=== PATIENT | male | born 1935 | race Caucasian/White ===

== ENCOUNTER 2018-07-06 13:25 | Inpatient (IN) | payer MEDICARE ==
[2018-07-06] MEDS ORDERED: MORPHINE SULFATE 4 MG/ML SYRINGE IV STA (14:07)
[2018-07-06] MEDS ORDERED: SODIUM CHLORIDE 0.9% 1,000 ML IV STA (14:09)
--- NOTE | 2018-07-06 14:17 | ED ---
General Adult HPI - General Chief complaint: Fall Stated complaint: Fall/Hip Pain Time Seen by Provider: 07/06/18 13:52 Source: patient, family, EMS, RN notes reviewed Mode of arrival: EMS Limitations: no limitations - History of Present Illness Initial comments: Patient is a pleasant 83-year-old male presenting to the emergency department following a fall. Incident occurred last night. Patient tripped on a curb and hurt his right hip. Patient had difficulty bearing weight. Patient was able to get himself inside. Patient has continued discomfort and is unable to ambulate. Patient also has some discomfort right anterior ribs and abdomen. Patient does have chronic back pain however no new back pain. Patient states she did strike his head however denies any loss of consciousness. No confusion or new area of weakness. No neck pain. Patient did receive fentanyl by EMS however still complains of discomfort. - Related Data Home Medications Medication Instructions Recorded Confirmed Citalopram Hydrobromide 40 mg PO DAILY 09/24/13 07/06/18 [Citalopram HBr] HYDROcodone/APAP 10-325MG [[place] 1 tab PO Q4H 09/24/13 07/06/18 10] Omeprazole [PriLOSEC] 20 mg PO AC-BRKFST 09/24/13 07/06/18 Simvastatin [Zocor] 80 mg PO HS 09/24/13 07/06/18 amLODIPine [Norvasc] 5 mg PO DAILY 09/24/13 07/06/18 Metoprolol Tartrate [Lopressor] 50 mg PO BID 07/06/18 07/06/18 Tamsulosin HCl [Flomax] 0.4 mg PO DAILY 07/06/18 07/06/18 Allergies Allergy/AdvReac Type Severity Reaction Status Date / Time shellfish derived AdvReac Dyspnea Verified 07/06/18 14:03 Review of Systems ROS Statement: Those systems with pertinent positive or pertinent negative responses have been documented in the HPI. ROS Other: All systems not noted in ROS Statement are negative. Constitutional: Denies: fever Eyes: Denies: eye pain ENT: Denies: ear pain Respiratory: Denies: cough Cardiovascular: Reports: as per HPI Endocrine: Denies: fatigue Gastrointestinal: Reports: abdominal pain Genitourinary: Denies: dysuria Musculoskeletal: Reports: as per HPI Skin: Denies: rash Neurological: Denies: headache, weakness, confusion Past Medical History Past Medical History: GERD/Reflux, Hypertension, Musculoskeletal Disorder Additional Past Medical History / Comment(s): chronic back pain, high cholesterol, History of Any Multi-Drug Resistant Organisms: None Reported Past Surgical History: Adenoidectomy, Cholecystectomy, Tonsillectomy Past Psychological History: Depression Smoking Status: Former smoker Past Alcohol Use History: None Reported Past Drug Use History: None Reported General Exam Limitations: no limitations General appearance: alert, in no apparent distress Head exam: Present: atraumatic, normocephalic Eye exam: Present: normal appearance, PERRL, EOMI ENT exam: Present: normal oropharynx Neck exam: Present: normal inspection. Absent: tenderness Respiratory exam: Present: normal lung sounds bilaterally, chest wall tenderness (Right lower anterior chest) Cardiovascular Exam: Present: regular rate, normal rhythm Expanded Peripheral pulses: 2+: Radial (R), Radial (L), Dorsalis Pedis (R), Dorsalis Pedis (L) GI/Abdominal exam: Present: soft, tenderness (Mild diffuse tenderness), normal bowel sounds. Absent: distended, guarding, rebound, rigid, pulsatile mass Extremities exam: Present: tenderness (Right lateral hip). Absent: calf tenderness Back exam: Present: normal inspection. Absent: tenderness Neurological exam: Present: alert, CN II-XII intact. Absent: motor sensory deficit Expanded Neurological exam: Present: protecting the airway Cranial nerves: EOM's Intact: Normal Sensory exam: Upper Extremity Light Touch: Normal, Lower Extremity Light Touch: Normal Motor strength exam: RUE: 5, LUE: 5, RLE: 5 (Exam somewhat limited by pain), LLE : 5 Eye Response: (4) open spontaneously Motor Response: (6) obeys commands Verbal Response: (5) oriented Psychiatric exam: Present: normal affect, normal mood Skin exam: Present: normal color Course Vital Signs 07/06/18 13:33 Temperature 97.8 F Pulse Rate 76 Respiratory 22 Rate Blood Pressure 137/57 O2 Sat by Pulse 99 Oximetry - Reevaluation(s) Reevaluation #1: 07/06/18 17:03 Case was earlier discussed with Dr. Wilks who states patient does not need to be admitted surgically has injuries could be managed as an outpatient. He will consult on patient. he does request consult with Dr. Lackey as well as anesthesiology. Secondary to rhabdomyolysis and changes with renal function patient will be admitted. Case was discussed with Dr. Sam, covering for Dr. Therese mckeon, who will admit. Patient and family updated on results and plan including concern for lung mass. EKG Findings - EKG Comments: EKG Findings:: Sinus rhythm 69. DE 222. QRS 112. QT 458. QTC 490 axis. Right bundle branch block. No acute ST change. Medical Decision Making - Lab Data Result diagrams: 07/06/18 14:27 07/06/18 14:27 Lab Results 07/06/18 07/06/18 07/06/18 Range/Units 14:27 14:27 14:27 WBC 13.4 H (3.8-10.6) k/uL RBC 3.51 L (4.30-5.90) m/uL Hgb 10.7 L (13.0-17.5) gm/dL Hct 32.4 L (39.0-53.0) % MCV 92.3 (80.0-100.0) fL MCH 30.5 (25.0-35.0) pg MCHC 33.0 (31.0-37.0) g/dL RDW 13.7 (11.5-15.5) % Plt Count 139 L (150-450) k/uL Neutrophils % 88 % Lymphocytes % 5 % Monocytes % 6 % Eosinophils % 1 % Basophils % 0 % Neutrophils # 11.7 H (1.3-7.7) k/uL Lymphocytes # 0.6 L (1.0-4.8) k/uL Monocytes # 0.8 (0-1.0) k/uL Eosinophils # 0.2 (0-0.7) k/uL Basophils # 0.0 (0-0.2) k/uL PT (9.0-12.0) sec INR (<1.2) APTT (22.0-30.0) sec Sodium 139 (137-145) mmol/L Potassium 4.7 (3.5-5.1) mmol/L Chloride 106 (98-107) mmol/L Carbon Dioxide 22 (22-30) mmol/L Anion Gap 11 mmol/L BUN 28 H (9-20) mg/dL Creatinine 2.00 H (0.66-1.25) mg/dL Est GFR (CKD-EPI)AfAm 35 (>60 ml/min/1.73 sqM) Est GFR (CKD-EPI)NonAf 30 (>60 ml/min/1.73 sqM) Glucose 114 H (74-99) mg/dL Calcium 9.5 (8.4-10.2) mg/dL Total Bilirubin 1.7 H (0.2-1.3) mg/dL AST 80 H (17-59) U/L ALT 20 L (21-72) U/L Alkaline Phosphatase 60 (38-126) U/L Total Creatine Kinase 2401 H* (55-170) U/L CK-MB (CK-2) 13.1 H (0.0-2.4) ng/mL CK-MB (CK-2) Rel Index Troponin I 0.218 H* (0.000-0.034) ng/mL Total Protein 7.3 (6.3-8.2) g/dL Albumin 4.2 (3.5-5.0) g/dL Serum Alcohol <10 mg/dL Blood Type Blood Type Confirm Blood Type Recheck Antibody Screen Spec Expiration Date 07/06/18 07/06/18 07/06/18 Range/Units 14:27 14:27 14:29 WBC (3.8-10.6) k/uL RBC (4.30-5.90) m/uL Hgb (13.0-17.5) gm/dL Hct (39.0-53.0) % MCV (80.0-100.0) fL MCH (25.0-35.0) pg MCHC (31.0-37.0) g/dL RDW (11.5-15.5) % Plt Count (150-450) k/uL Neutrophils % % Lymphocytes % % Monocytes % % Eosinophils % % Basophils % % Neutrophils # (1.3-7.7) k/uL Lymphocytes # (1.0-4.8) k/uL Monocytes # (0-1.0) k/uL Eosinophils # (0-0.7) k/uL Basophils # (0-0.2) k/uL PT 11.0 (9.0-12.0) sec INR 1.0 (<1.2) APTT 20.5 L (22.0-30.0) sec Sodium (137-145) mmol/L Potassium (3.5-5.1) mmol/L Chloride (98-107) mmol/L Carbon Dioxide (22-30) mmol/L Anion Gap mmol/L BUN (9-20) mg/dL Creatinine (0.66-1.25) mg/dL Est GFR (CKD-EPI)AfAm (>60 ml/min/1.73 sqM) Est GFR (CKD-EPI)NonAf (>60 ml/min/1.73 sqM) Glucose (74-99) mg/dL Calcium (8.4-10.2) mg/dL Total Bilirubin (0.2-1.3) mg/dL AST (17-59) U/L ALT (21-72) U/L Alkaline Phosphatase (38-126) U/L Total Creatine Kinase (55-170) U/L CK-MB (CK-2) (0.0-2.4) ng/mL CK-MB (CK-2) Rel Index Troponin I (0.000-0.034) ng/mL Total Protein (6.3-8.2) g/dL Albumin (3.5-5.0) g/dL Serum Alcohol mg/dL Blood Type O Positive Blood Type Confirm O Positive Blood Type Recheck CABO Indicated Antibody Screen NEGATIVE Spec Expiration Date 07/09/2018 - 9736 - Radiology Data Radiology results: report reviewed (Computed tomography scan of the brain and cervical spine reveals no acute abnormality. Spondylitic changes. Computed tomography scan of the chest abdomen pelvis does show rib fractures on the right , ribs 4 through 7. Right sided superior and inferior pubic rami fracture. Nondisplaced sacral fracture. Suspicious 5.2 cm right lower lobe mass. Associated subcarinal lymphadenopathy.), image reviewed (Pelvic x-ray shows pubic rami fracture. Right femur x-ray also shows pubic rami fracture, no hip fracture.) Disposition Clinical Impression: Lung mass, Rhabdomyolysis, Rib fractures, Pubic ramus fracture Disposition: ADMITTED IP TO THIS [facility] Is patient prescribed a controlled substance at d/c from ED?: No Referrals: Conrad Corey DO [Primary Care Provider] - 1-2 days Decision Time: 16:35
[2018-07-06 15:17] LABS: Basophils % (A) 0 %; Eosinophils # (A) 0.2 k/uL (0-0.7); Eosinophils % (A) 1 %; HCT 32.4 % (39.0-53.0); HGB 10.7 gm/dL (13.0-17.5); Lymphocytes # (A) 0.6 k/uL (1.0-4.8); Lymphocytes % (A) 5 %; MCH 30.5 pg (25.0-35.0); MCV 92.3 fL (80.0-100.0); Mean Platelet Volume 7.3; Monocytes # (A) 0.8 k/uL (0-1.0); Monocytes % (A) 6 %; Neutrophils # (A) 11.7 k/uL (1.3-7.7); Neutrophils % (A) 88 %; Platelet Count 139 k/uL (150-450); RBC 3.51 m/uL (4.30-5.90); RDW 13.7 % (11.5-15.5); WBC 13.4 k/uL (3.8-10.6)
[2018-07-06 15:24] LABS: ALT 20 U/L (21-72); AST 80 U/L (17-59); Albumin 4.2 g/dL (3.5-5.0); Alcohol <10 mg/dL; Alkaline Phosphatase 60 U/L (38-126); Anion Gap 11 mmol/L; Blood Urea Nitrogen 28 mg/dL (9-20); Calcium 9.5 mg/dL (8.4-10.2); Carbon Dioxide 22 mmol/L (22-30); Chloride 106 mmol/L (98-107); Glucose 114 mg/dL (74-99); Potassium 4.7 mmol/L (3.5-5.1); Sodium 139 mmol/L (137-145); Total Bilirubin 1.7 mg/dL (0.2-1.3); Total Protein 7.3 g/dL (6.3-8.2)
[2018-07-06 15:41] LABS: Creatine Kinase MB 13.1 ng/mL (0.0-2.4)
[2018-07-06 15:43] LABS: Partial Thromboplastin Time 20.5 sec (22.0-30.0)
[2018-07-06 15:56] LABS: Troponin I 0.218 ng/mL (0.000-0.034)
--- NOTE | 2018-07-06 16:04 | CT ---
EXAMINATION TYPE: CT brain sara wo con DATE OF EXAM: 07/06/2018 COMPARISON: Brain 09/24/2013 HISTORY: 83-year-old male Fall, c/o hip pain CT DLP: 1290.1 mGycm Automated exposure control for dose reduction was used. Technique: Examination of the head was done in axial plane without intravenous contrast. Coronal and sagittal reconstructions performed. CT of the cervical spine was obtained in axial plane without intravenous injection of contrast mater ial. Coronal and sagittal reformatted images were obtained from the axial views for evaluation of f ractures, spinal alignment and canal. FINDINGS: Head: There is no evidence of acute intracranial hemorrhage, acute ischemic changes, mass, mass-effect, or extra-axial fluid collection. There is no effacement of cerebral sulci or basal subarachnoid cister ns. There is no midline shift. Camacho-white matter distinction is preserved. Moderate generalized atrophy especially central cerebral volume loss with secondary mild ventriculome lelie, stable from 2013. Mild white matter hypodensities suggesting changes of chronic small vessel is chemic disease. Empty sella incidentally noted. Rightward nasal septal deviation. Moderate mucosal thickening ethmoid air cells. Opacification of the right mastoid air cells and right epitympanum and prominent cerumen in the right external auditory c anal. No calvarial fractures. Cervical spine: No craniocervical junction, predental space widening, or prevertebral soft tissue swelling. Advanced degenerative changes at the C1 dens articulate. Severe dissection plate degenerative change at C4-C7 levels with loss of disc height, endplate sclero sis, and discussed by complex formation. Hypertrophic facet and uncovertebral joint arthropathy is present. Grade 1 anterolisthesis at C3-C4 and grade 1 retrolisthesis at C4-C5 and C5-C6. Additional grade 2 an terolisthesis at C7-T1. No acute fracture is identified. Changes result in moderate narrowing of the spinal canal at C6-C7. Moderate right-sided neural foraminal stenosis at C3-C4, on the left at C4-C5, moderate to severe on both sides at C5-C6 and moderate on the left at C6-C7. Sagittal and coronal reformatted images confirm above findings. COMBINED IMPRESSION: 1. Similar moderate atrophy and mild changes of chronic small vessel ischemic disease. No acute intra cranial abnormality seen. 2. No acute fracture of the cervical spine. Moderate to advanced spondylotic changes with multilevel grade 1 spondylolisthesis as outlined above. 3. Correlate for right-sided otomastoiditis.
--- NOTE | 2018-07-06 16:06 | XR ---
EXAMINATION TYPE: XR Hip RT and AP Pelvis DATE OF EXAM: 07/06/2018 COMPARISON: CT chest abdomen pelvis same date HISTORY: Trauma and pain TECHNIQUE: A single AP view of the pelvis is obtained. Two views of the right hip are obtained. FINDINGS: There is inferior pubic ramus fracture, superior pubis ramus fracture is noted better on CT at its lateral aspect. There is impaction. Superior pubis ramus fracture shows a buckle fracture at the medial aspect. No dislocation. Degenerative disc changes are noted in the visualized spine. IMPRESSION: Right-sided pubic ramus fractures.
--- NOTE | 2018-07-06 16:25 | CT ---
EXAMINATION TYPE: CT ChestAbdPelvis wo con DATE OF EXAM: 07/06/2018 COMPARISON: None HISTORY: 83-year-old male Fall, c/o hip pain TECHNIQUE: Contiguous axial scanning of the chest, abdomen, and pelvis without IV contrast. Coronal a nd sagittal reconstructions performed. CT DLP: 722.1 mGycm Automated exposure control for dose reduction was used. FINDINGS: Chest: Heart upper limits of normal in size without pericardial effusion. Coronary vessel calcifications are present. Large caliber to the main right and the pulmonary arteries measuring up to 2.8 cm suggestin g underlying pulmonary arterial hypertension. Ectatic ascending aorta at 3.8 cm. Bovine configuration to the aortic arch and additional variant dir ect takeoff of the left vertebral artery directly from the aortic arch. Lack of IV contrast limits assessment of the vascular structures. Enlarged 2.2 cm subcarinal lymph node. There is moderate centrilobular emphysema and areas of interstitial scarring demonstrated. No consoli dation, pneumothorax, or pleural effusion. However, there is a suspicious right lower lobe mass measu ring 5.2 cm. ABDOMEN: Small hiatal hernia. Lack of IV contrast limits assessment of the solid abdominal viscera, lymph nodes, and vascular struc tures. 9 mm hypodensity peripheral inferior right liver lobe inadequately characterized but likely represent ing a cyst. While this measures 1.2 cm likely combination of patient's age and postcholecystectomy st atus. Noncontrast appearance of the adrenal glands, spleen, and atrophic pancreas show no gross abnormality . Punctate nonobstructive 2 mm right renal calculus. Lobulated hypodense lesion in the left kidney rj ures 4.7 cm, suspected cyst. This should be confirmed with renal ultrasound. 5 mm nonobstructive left lower pole renal calculus. Moderate atherosclerotic calcifications within the infrarenal abdominal aorta and iliac arteries. Fus iform mild infrarenal abdominal aortic aneurysm at 3.0 cm. Retroaortic left renal vein. No dilated small bowel, free fluid, or free air. No mesenteric or retroperitoneal lymphadenopathy. Normal appendix. Gassy colon. Transverse colon is mildly dilated at 7.1 cm, probably transient. Mild diverticulosis of the sigmoid colon. Redundant sigmoid colon. No pericolonic inflammatory change . Pelvis: Bladder urine distended. Prominent stool distending the rectum up to 6.7 cm. No surrounding inflammat ion. No abnormal fluid collection in the pelvis or pelvic lymphadenopathy. Bones: There are segmental and angulated fractures of the right inferior pubic ramus, nondisplaced fracture right superior pubic ramus laterally along the medial margin of the acetabulum. Degenerative changes of both hips. No displaced hip fracture seen. Bilateral L5 pars defects with grade 2 anterolisthesis at L5-S1. Nondisplaced zone 1 right-sided sacr al alar fracture. SI joints appear intact. Very subtle lucencies or cortical irregularities involving the right lateral fourth, fifth, sixth, an d seventh ribs. IMPRESSION: 1. SEGMENTAL ANGULATED FRACTURES OF THE RIGHT INFERIOR PUBIC RAMUS. NONDISPLACED FRACTURE OF THE LATE RAL ASPECT OF THE RIGHT SUPERIOR PUBIC RAMUS AND ADDITIONAL NONDISPLACED ZONE 1 RIGHT-SIDED SACRAL AL AR FRACTURE. 2. SUBTLE NONDISPLACED FRACTURES OF THE RIGHT LATERAL FOURTH THROUGH SEVENTH RIBS. 3. LACK OF IV CONTRAST LIMITS ASSESSMENT OF THE SOLID ABDOMINAL VISCERA, LYMPH NODES, AND VASCULAR ST RUCTURES. 4. FINDINGS HIGHLY SUSPICIOUS FOR A 5.2 CM RIGHT LOWER LOBE LUNG CANCER WITH METASTATIC SUBCARINAL LY MPHADENOPATHY. FURTHER CLINICAL WORKUP AND MANAGEMENT RECOMMENDED. 5. LOBULATED 4.7 CM LESION OF THE LEFT KIDNEY SUSPECTED TO REPRESENT A CYST. THIS SHOULD BE CONFIRMED WITH RENAL ULTRASOUND. 6. 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 7. COPD WITH MODERATE EMPHYSEMA, PULMONARY ARTERIAL HYPERTENSION, CAD, SMALL HIATAL HERNIA, NONOBSTRU CTIVE RENAL CALCULI MEASURING UP TO 5 MM, 3 cm AAA, AND SIGMOID DIVERTICULOSIS.
[2018-07-06] MEDS ORDERED: NALOXONE 0.4 MG/ML 1 ML VIAL IV PRN (17:07)
[2018-07-06] MEDS ORDERED: HYDROcodone/APAP 5-325MG 1 EACH TAB PO PRN (17:07)
[2018-07-06 17:21] LABS: Amorphous Sediment,Urine Rare /hpf; Hyaline Casts,Urine 7 /lpf (0-2); Mucus,Urine Rare /hpf; WBC,Urine 17 /hpf (0-5)
[2018-07-06 17:25] LABS: Amphetamine Screen,Urine Not Detected (NotDetected); Barbiturate Screen,Urine Not Detected (NotDetected); Benzodiazepines Screen,Urine Not Detected (NotDetected); Cocaine Screen,Urine Not Detected (NotDetected); Methadone Screen, Urine Not Detected (NotDetected); Opiate Screen,Urine Detected (NotDetected); Oxycodone Screen, Urine Not Detected (NotDetected); Phencyclidine Screen,Urine Not Detected (NotDetected); Tricyclic Antidepressant,Urine Not Detected (NotDetected); Urn Cannabinoid Scrn Not Detected (NotDetected)
[2018-07-06 17:47] LABS: Appearance,Urine Cloudy (Clear); Bilirubin,Urine Negative (Negative); Blood,Urine Moderate (Negative); Color,Urine Yellow; Glucose,Urine (UA) Negative (Negative); Ketones,Urine 1+ (Negative); Leukocyte Esterase,Urine Trace (Negative); Nitrite,Urine Negative (Negative); Protein,Urine 2+ (Negative); RBC,Urine 1 /hpf (0-5); Specific Gravity,Urine 1.021 (1.001-1.035)
[2018-07-06] MEDS ORDERED: MORPHINE SULFATE 4 MG/ML SYRINGE IVP STA (18:24)
[2018-07-06] MEDS: SODIUM CHLORIDE 0.9% 1,000 ML IV SCH ×2 (18:31→23:32)
[2018-07-06] MEDS: HYDROcodone/APAP 5-325MG 1 EACH TAB PO PRN (20:46)
[2018-07-06 21:24] LABS: Creatine Kinase MB 22.1 ng/mL (0.0-2.4)
[2018-07-06 21:30] LABS: Troponin I 1.11 ng/mL (0.000-0.034)
[2018-07-06] MEDS: MORPHINE SULFATE 2 MG/ML SYRINGE IVP PRN (23:31)
[2018-07-07] MEDS ORDERED: HEPARIN SODIUM,PORCINE 5,000 UNIT/ML 1 ML VIAL SQ SCH (00:15)
[2018-07-07 03:58] LABS: Albumin 3.1 g/dL (3.5-5.0); Calcium 8.2 mg/dL (8.4-10.2); Potassium 4.3 mmol/L (3.5-5.1); Total Bilirubin 0.9 mg/dL (0.2-1.3); Total Protein 5.7 g/dL (6.3-8.2)
[2018-07-07 04:17] LABS: Troponin I 1.66 ng/mL (0.000-0.034)
[2018-07-07] MEDS: MORPHINE SULFATE 2 MG/ML SYRINGE IVP PRN ×4 (04:23→22:46)
[2018-07-07] MEDS: SODIUM CHLORIDE 0.9% 1,000 ML IV SCH ×2 (05:23→09:07)
[2018-07-07] MEDS: PANTOPRAZOLE 40 MG TABLET PO SCH (06:09)
[2018-07-07] MEDS: ONDANSETRON 4 MG/2 ML VIAL IVP PRN ×2 (06:29→19:17)
--- NOTE | 2018-07-07 07:34 | HP ---
HISTORY AND PHYSICAL CHIEF COMPLAINT: Hip pain and right-sided chest pain. HISTORY OF PRESENT ILLNESS: This is a 83-year-old gentleman with a past medical history of multiple medical problems including hypertension, hyperlipidemia, history of GERD, history of DJD , history of prostate disorder, history of from cholecystectomy, history of depression, being followed by Dr. Corey in the outpatient setting, apparently tripped and fell over the curb last night. The patient is complaining of hip pain and as well as right lower chest pain. The patient unable to get himself up and patient apparently was lying bed himself and because of difficulty, the patient taken to [facility] and admitted for further evaluation and treatment. The patient had features of rhabdomyolysis with creatine kinase elevated up to 2401. Troponin is also found to elevated at 0.218. There is no history of chest pain, palpitation, headache, loss of consciousness. AST, ALT were slightly elevated and urine WBC is also elevated and WBC is 13.4. The radiological evaluation, the hip x-ray showed right-sided pubic ramus fractures, both inferior and superior which was conformed in the CT scan of the chest, abdomen and pelvis which showed segmental angulated fracture of the right inferior pubic ramus and a nondisplaced fracture of the lateral aspect of the right superior pubic ramus and as well as nondisplaced fractures of the right lateral fourth through seventh ribs and 5.2 cm right lower lobe lung cancer, with possible metastasis and a lobulated 4.7 cm lesion on the left kidney which is possibly a cyst and some DJD and COPD also. There is no history of any fever, rigors. No history of headache, loss of consciousness, seizures at this time. PAST MEDICAL HISTORY: History of GERD, hypertension, hyperlipidemia, history of DJD, history of prostate disorder, chronic back pain, gout, history of depression. MEDICATIONS: Prior to admission home medications are: 1. Norvasc 5 mg p.o. daily. 2. Flomax 0.4. 3. Zocor 80 mg q.h.s. 4. Prilosec 20 mg at breakfast. 5. Lopressor 50 mg b.i.d. 6. [place] 10 mg q.h.s. 7. Celexa 40 mg daily. ALLERGIES: PENICILLIN, SHELLFISH. FAMILY HISTORY: History of breast cancer in the family. SOCIAL HISTORY: Previous history of smoking. Occasional alcohol intake. REVIEW OF SYSTEMS: ENT: Diminished hearing, diminished vision. CARDIOVASCULAR SYSTEM: No angina or palpitations, no cough or hemoptysis. GI: No nausea. : No dysuria. NERVOUS SYSTEM: No numbness, weakness. ALLERGY/IMMUNOLOGY: No asthma. MUSCULOSKELETAL: As mentioned earlier. HEMATOLOGY/ONCOLOGY: No history of anemia. ENDOCRINE: No history of diabetes or hypothyroidism. CONSTITUTIONAL: As mentioned earlier. DERMATOLOGY: Negative. RHEUMATOLOGY: Negative. PSYCHIATRY: As mentioned earlier. PHYSICAL EXAMINATION: Alert and oriented x3. Pulse is 75, blood pressure 122/53, respiration 18, temperature 98 degrees, pulse ox 98% on room air skin: HEENT: Conjunctivae normal, oral mucosa moist. NECK: No jugular venous distention, no carotid enlargement, no lymph node enlargement. CARDIOVASCULAR SYSTEM: S1, S2, muffled. RESPIRATION: Breath sounds diminished at the bases, a few scattered rhonchi, no crackles. ABDOMEN: Soft, some minimal discomfort felt on the right lower part of the chest and right upper part of the abdomen on palpation. Otherwise, movements of the hip painful. LEGS: No edema. No swelling. NERVOUS SYSTEM: Higher functions as mentioned earlier. Moves all 4 limbs. No focal motor deficits. LYMPHATICS: No lymph node enlargement in the neck or axillae. SKIN: No ulcer, rash, bleeding. LABS: At this time shows the x-ray reviewed and otherwise other labs reviewed and WBC 13.2, hemoglobin 10.7, platelets 139. Creatinine is 2, glucose 114, creatinine kinase 20,2401. ASSESSMENT: 1. Fall and acute pelvis fracture, right superior inferior pubic ramus fracture with severe pain and gait dysfunction. 2. Acute rhabdomyolysis. 3. Elevated troponin up to 1.110, rule out acute myocardial infarction. 4. History of fever, elevated WBC, possible acute urinary tract infection. 5. Increased creatinine with possible acute on chronic renal failure with chronic kidney disease stage III, baseline. 6. Anemia, normocytic anemia of chronic disease. 7. Increased AST. 8. Acute urinary tract infection. 9. Gastroesophageal reflux disease. 10.Hypertension. 11.Hyperlipidemia. 12.Degenerative joint disease. 13.History of prostate disorder. 14.History of gout. 15.History of asbestos exposure. 16.Possible right lung cancer. 17.History of adenoidectomy. 18.Major depression. 19.History of nicotine dependence. RECOMMENDATIONS: In this 83-year-old gentleman who presented with multiple complex medical issues , will monitor the patient closely, continue with the current management and symptomatic treatment. Continue with IV fluids, monitor, symptomatic treatment with pain medication, also will be given DVT prophylaxis. Monitor creatinine closely. Cardiology has been consulted for elevated troponin. I would also recommend PT , OT evaluation and orthopedic evaluation as well. The social services technician also will be consulted and possible ECF rehab also will be considered. 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 Overall prognosis guarded because of multiple complex medical issues. The patient remains FULL CODE at this time further. Further recommendations to follow. Chest reviewed and a copy of this will be forwarded to Dr. Corey who is the primary physician. DARIL / ADELINAN: [id number] / [id number]
[2018-07-07] MEDS: HYDROcodone/APAP 5-325MG 1 EACH TAB PO PRN (07:44)
[2018-07-07] MEDS ORDERED: HYDROcodone/APAP 7.5-325MG 1 EACH TAB PO PRN (07:58)
[2018-07-07] MEDS ORDERED: amLODIPine 5 MG TAB PO SCH (09:00)
[2018-07-07] MEDS ORDERED: METOPROLOL TARTRATE 50 MG TAB PO SCH (09:00)
[2018-07-07] MEDS: DOCUSATE 100 MG CAP PO SCH ×2 (09:09→20:52)
[2018-07-07] MEDS: TAMSULOSIN 0.4 MG CAP.ER.24H PO SCH (09:09)
[2018-07-07] MEDS: CITALOPRAM HYDROBROMIDE 20 MG TAB PO SCH (09:09)
[2018-07-07] MEDS: LIDOCAINE 5% PATCH TOPICAL SCH (09:10)
--- NOTE | 2018-07-07 09:41 | P.GSCN ---
History of Present Illness Consult date: 07/07/18 Reason for Consult: fall Requesting physician: Benson Ortiz History of present illness: CHIEF COMPLAINT: Fall HISTORY OF PRESENT ILLNESS: 83-year-old male who presented to the emergency department after sustaining a fall. Patient was walking and tripped and landed on his right side. He states his pain is tolerable at this time. He denies chest pain or shortness of breath. PAST MEDICAL HISTORY: See list. PAST SURGICAL HISTORY: See list. MEDICATIONS: See list. ALLERGIES: See list. SOCIAL HISTORY: No illicit drug use. REVIEW OF SYSTEMS: CONSTITUTIONAL: Denies fever or chills. HEENT: Denies blurred vision, vision changes, or eye pain. Denies hemoptysis ENDOCRINE: Denies heat or cold intolerance. CARDIOVASCULAR: Denies chest pain or pressure. RESPIRATORY: No shortness of breath. GASTROINTESTINAL: Denies abdominal pain. Denies nausea or vomiting. NEURO: Denies history of seizures. PSYCH: No depression or suicidal ideation HEMATOLOGIC: Denies bleeding disorders. LYMPHATIC: The patient denies any lumps and bumps around the neck. GENITOURINARY: Denies any blood in urine or increased urinary frequency. MUSCULOSKELETAL: Reports increased pain to right chest wall. Denies myalgias. Denies joint swelling. SKIN: Denies pruitis. Denies rash. PHYSICAL EXAM: VITAL SIGNS: Currently stable. GENERAL: Well-developed in no acute distress. HEENT: No sclera icterus. Extraocular movements grossly intact. Moist buccal mucosa. Head is atraumatic, normocephalic. Hears conversational speech. No nasal drainage. NECK: Supple without lymphadenopathy. CHEST: Non-labored respirations and equal bilateral excursions. CARDIOVASCULAR: Regular rate with regular rhythm. Palpable 2+ radial pulses. ABDOMEN: Soft. Nondistended. Nontender. MUSCULOSKELETAL: No clubbing, cyanosis or edema. NEUROLOGIC: No focal or lateralizing signs. Cranial nerves II through XII grossly intact. PSYCH: Appropriate affect. Alert and oriented to person, place and time. SKIN: Well perfused. Good skin turgor. Large amount of ecchymosis to right chest wall. ASSESSMENT: 1. Traumatic fall 2. Right-sided pubic ramus fracture 3. Nondisplaced fracture of the right lateral fourth through seventh rib 4. Acute rhabdomyolysis PLAN: 1. Orthopedics, pulmonary, anesthesia, and medicine are on consult. Await recommendations. 2. Pain control 3. Incentive spirometry Nurse practitioner note has been reviewed by physician. Signing provider agrees with the documented findings, assessment, and plan of care. 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" History of Any Multi-Drug Resistant Organisms: None Reported Past Surgical History: Adenoidectomy, Cholecystectomy, Tonsillectomy Past Anesthesia/Blood Transfusion Reactions: No Reported Reaction Additional Past Anesthesia/Blood Transfusion Reaction / Comm: has never recieved any blood transfusions Smoking Status: Former smoker - Past Family History Mother Family Medical History: Cancer Additional Family Medical History / Comment(s): breast cancer Father Family Medical History: Cancer, Prostate Disorder Additional Family Medical History / Comment(s): prostate cancer Medications and Allergies Home Medications Medication Instructions Recorded Confirmed Type Citalopram Hydrobromide 40 mg PO DAILY 09/24/13 07/06/18 History [Citalopram HBr] HYDROcodone/APAP 10-325MG [[place] 1 tab PO Q4H 09/24/13 07/06/18 History 10] Omeprazole [PriLOSEC] 20 mg PO AC-BRKFST 09/24/13 07/06/18 History Simvastatin [Zocor] 80 mg PO HS 09/24/13 07/06/18 History amLODIPine [Norvasc] 5 mg PO DAILY 09/24/13 07/06/18 History Metoprolol Tartrate [Lopressor] 50 mg PO BID 07/06/18 07/06/18 History Tamsulosin HCl [Flomax] 0.4 mg PO DAILY 07/06/18 07/06/18 History Allergies Allergy/AdvReac Type Severity Reaction Status Date / Time Penicillins AdvReac Dyspnea Verified 07/06/18 20:33 shellfish derived AdvReac Dyspnea Verified 07/06/18 14:03 Surgical - Exam Vital Signs Temp Pulse Resp BP Pulse Ox 97.8 F 76 22 137/57 99 07/06/18 13:33 07/06/18 13:33 07/06/18 13:33 07/06/18 13:33 07/06/18 13:33 Results - Labs 07/06/18 14:27 07/07/18 03:06 Abnormal Lab Results - Last 24 Hours (Table) 07/06/18 07/06/18 07/06/18 Range/Units 14:27 14:27 14:27 WBC 13.4 H (3.8-10.6) k/uL RBC 3.51 L (4.30-5.90) m/uL Hgb 10.7 L (13.0-17.5) gm/dL Hct 32.4 L (39.0-53.0) % Plt Count 139 L (150-450) k/uL Neutrophils # 11.7 H (1.3-7.7) k/uL Lymphocytes # 0.6 L (1.0-4.8) k/uL APTT (22.0-30.0) sec Chloride (98-107) mmol/L BUN 28 H (9-20) mg/dL Creatinine 2.00 H (0.66-1.25) mg/dL Glucose 114 H (74-99) mg/dL Calcium (8.4-10.2) mg/dL Total Bilirubin 1.7 H (0.2-1.3) mg/dL AST 80 H (17-59) U/L ALT 20 L (21-72) U/L Total Creatine Kinase 2401 H* (55-170) U/L CK-MB (CK-2) 13.1 H (0.0-2.4) ng/mL Troponin I 0.218 H* (0.000-0.034) ng/mL Total Protein (6.3-8.2) g/dL Albumin (3.5-5.0) g/dL Urine Protein (Negative) Urine Ketones (Negative) Urine Blood (Negative) Ur Leukocyte Esterase (Negative) Urine WBC (0-5) /hpf Amorphous Sediment (None) /hpf Hyaline Casts (0-2) /lpf Urine Mucus (None) /hpf Urine Opiates Screen (NotDetected) 07/06/18 07/06/18 07/06/18 Range/Units 14:27 17:00 20:28 WBC (3.8-10.6) k/uL RBC (4.30-5.90) m/uL Hgb (13.0-17.5) gm/dL Hct (39.0-53.0) % Plt Count (150-450) k/uL Neutrophils # (1.3-7.7) k/uL Lymphocytes # (1.0-4.8) k/uL APTT 20.5 L (22.0-30.0) sec Chloride (98-107) mmol/L BUN (9-20) mg/dL Creatinine (0.66-1.25) mg/dL Glucose (74-99) mg/dL Calcium (8.4-10.2) mg/dL Total Bilirubin (0.2-1.3) mg/dL AST (17-59) U/L ALT (21-72) U/L Total Creatine Kinase 4895 H* (55-170) U/L CK-MB (CK-2) 22.1 H (0.0-2.4) ng/mL Troponin I 1.110 H* (0.000-0.034) ng/mL Total Protein (6.3-8.2) g/dL Albumin (3.5-5.0) g/dL Urine Protein 2+ H (Negative) Urine Ketones 1+ H (Negative) Urine Blood Moderate H (Negative) Ur Leukocyte Esterase Trace H (Negative) Urine WBC 17 H (0-5) /hpf Amorphous Sediment Rare H (None) /hpf Hyaline Casts 7 H (0-2) /lpf Urine Mucus Rare H (None) /hpf Urine Opiates Screen Detected H (NotDetected) 07/07/18 07/07/18 Range/Units 03:06 03:06 WBC (3.8-10.6) k/uL RBC (4.30-5.90) m/uL Hgb (13.0-17.5) gm/dL Hct (39.0-53.0) % Plt Count (150-450) k/uL Neutrophils # (1.3-7.7) k/uL Lymphocytes # (1.0-4.8) k/uL APTT (22.0-30.0) sec Chloride 109 H (98-107) mmol/L BUN 24 H (9-20) mg/dL Creatinine 1.55 H (0.66-1.25) mg/dL Glucose 101 H (74-99) mg/dL Calcium 8.2 L (8.4-10.2) mg/dL Total Bilirubin (0.2-1.3) mg/dL AST 149 H (17-59) U/L ALT (21-72) U/L Total Creatine Kinase 5529 H* (55-170) U/L CK-MB (CK-2) 30.0 H (0.0-2.4) ng/mL Troponin I 1.660 H* (0.000-0.034) ng/mL Total Protein 5.7 L (6.3-8.2) g/dL Albumin 3.1 L (3.5-5.0) g/dL Urine Protein (Negative) Urine Ketones (Negative) Urine Blood (Negative) Ur Leukocyte Esterase (Negative) Urine WBC (0-5) /hpf Amorphous Sediment (None) /hpf Hyaline Casts (0-2) /lpf Urine Mucus (None) /hpf Urine Opiates Screen (NotDetected) Diabetes panel 07/06/18 07/07/18 Range/Units 14:27 03:06 Sodium 139 137 (137-145) mmol/L Potassium 4.7 4.3 (3.5-5.1) mmol/L Chloride 106 109 H (98-107) mmol/L Carbon Dioxide 22 22 (22-30) mmol/L BUN 28 H 24 H (9-20) mg/dL Creatinine 2.00 H 1.55 H (0.66-1.25) mg/dL Glucose 114 H 101 H (74-99) mg/dL Calcium 9.5 8.2 L (8.4-10.2) mg/dL AST 80 H 149 H (17-59) U/L ALT 20 L 36 (21-72) U/L Alkaline Phosphatase 60 52 (38-126) U/L Total Protein 7.3 5.7 L (6.3-8.2) g/dL Albumin 4.2 3.1 L (3.5-5.0) g/dL Calcium panel 07/06/18 07/07/18 Range/Units 14:27 03:06 Calcium 9.5 8.2 L (8.4-10.2) mg/dL Albumin 4.2 3.1 L (3.5-5.0) g/dL Pituitary panel 07/06/18 07/07/18 Range/Units 14:27 03:06 Sodium 139 137 (137-145) mmol/L Potassium 4.7 4.3 (3.5-5.1) mmol/L Chloride 106 109 H (98-107) mmol/L Carbon Dioxide 22 22 (22-30) mmol/L BUN 28 H 24 H (9-20) mg/dL Creatinine 2.00 H 1.55 H (0.66-1.25) mg/dL Glucose 114 H 101 H (74-99) mg/dL Calcium 9.5 8.2 L (8.4-10.2) mg/dL Adrenal panel 07/06/18 07/07/18 Range/Units 14:27 03:06 Sodium 139 137 (137-145) mmol/L Potassium 4.7 4.3 (3.5-5.1) mmol/L Chloride 106 109 H (98-107) mmol/L Carbon Dioxide 22 22 (22-30) mmol/L BUN 28 H 24 H (9-20) mg/dL Creatinine 2.00 H 1.55 H (0.66-1.25) mg/dL Glucose 114 H 101 H (74-99) mg/dL Calcium 9.5 8.2 L (8.4-10.2) mg/dL Total Bilirubin 1.7 H 0.9 (0.2-1.3) mg/dL AST 80 H 149 H (17-59) U/L ALT 20 L 36 (21-72) U/L Alkaline Phosphatase 60 52 (38-126) U/L Total Protein 7.3 5.7 L (6.3-8.2) g/dL Albumin 4.2 3.1 L (3.5-5.0) g/dL
--- NOTE | 2018-07-07 11:49 | XR ---
EXAMINATION TYPE: XR chest 2V DATE OF EXAM: 07/07/2018 COMPARISON: Prior chest x-ray 09/24/2013, CT chest abdomen pelvis 07/06/2018 HISTORY: Lung mass, trauma TECHNIQUE: Frontal and lateral views of the chest are obtained. FINDINGS: Right lower lobe lung mass is noted. No displaced rib fracture seen. No evident pneumothor ax or pleural effusion. Cardiac mediastinal silhouette, pulmonary vascularity and gordon within normal. IMPRESSION: Right lower lobe lung mass.
--- NOTE | 2018-07-07 12:04 | P.CRDCN ---
History of Present Illness Consult date: 07/07/18 Requesting physician: Radha Sam Chief complaint: Dizziness and fall History of present illness: This is an 83-year-old gentleman with past medical history significant for hypertension, hyperlipidemia, GERD, depression, prior history of smoking, emphysema, who presented to the hospital after experiencing a fall. According to the patient, he tripped backwards over the curb, actually crawled into the house because he could not get himself up. He apparently sat himself in a chair and stayed there until the next morning when he ultimately called his son. Patient does state he's been having some falls at home, he does state that he gets dizzy prior to falling and becomes extremely weak. Denies losing consciousness. X-ray of the pelvis performed which revealed a right sided pubic ramus fracture. CT of the chest and abdomen was also completed which showed segmental angulated fractures of the right inferior pubic ramus, nondisplaced fracture of the lateral aspect of the right superior pubic ramus and additional nondisplaced own sacral fracture. Subtle nondisplaced fractures of the right lateral fourth through seventh ribs. Findings highly suspicious for 5.2 cm right lower lobe lung cancer with metastatic subcarinal lymphadenopathy. Ambulated 4.7 cm lesion in the left kidney. COPD with moderate emphysema, 3 cm AAA. Blood pressure 118/50 with a heart rate in the 70s, temperature 99.1, 95% on 2 L of oxygen. White blood cell count 13.4, hemoglobin 10.7, platelet count 139. Sodium on admission 139, potassium 4.7, BUN 28, creatinine 2.0, total bilirubin 1.7, AST 80, ALT 20, CKs , 2401, 4895, 5529. MB 13.1, 22.1, 30.0. Troponin 0.21, 1.1, 1.6. Urine drug screen positive for opiates. 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" History of Any Multi-Drug Resistant Organisms: None Reported Past Surgical History: Adenoidectomy, Cholecystectomy, Tonsillectomy Past Anesthesia/Blood Transfusion Reactions: No Reported Reaction Additional Past Anesthesia/Blood Transfusion Reaction / Comment(s): has never recieved any blood transfusions Smoking Status: Former smoker - Past Family History Mother Family Medical History: Cancer Additional Family Medical History / Comment(s): breast cancer Father Family Medical History: Cancer, Prostate Disorder Additional Family Medical History / Comment(s): prostate cancer Medications and Allergies Home Medications Medication Instructions Recorded Confirmed Type Citalopram Hydrobromide 40 mg PO DAILY 09/24/13 07/06/18 History [Citalopram HBr] HYDROcodone/APAP 10-325MG [[place] 1 tab PO Q4H 09/24/13 07/06/18 History 10] Omeprazole [PriLOSEC] 20 mg PO AC-BRKFST 09/24/13 07/06/18 History Simvastatin [Zocor] 80 mg PO HS 09/24/13 07/06/18 History amLODIPine [Norvasc] 5 mg PO DAILY 09/24/13 07/06/18 History Metoprolol Tartrate [Lopressor] 50 mg PO BID 07/06/18 07/06/18 History Tamsulosin HCl [Flomax] 0.4 mg PO DAILY 07/06/18 07/06/18 History Allergies Allergy/AdvReac Type Severity Reaction Status Date / Time Penicillins AdvReac Dyspnea Verified 07/06/18 20:33 shellfish derived AdvReac Dyspnea Verified 07/06/18 14:03 Physical Exam Vitals: Vital Signs Temp Pulse Pulse Resp BP BP Pulse Ox 07/07/18 08:00 99.1 F 76 20 118/56 95 07/07/18 02:55 98.8 F 85 18 123/60 93 L 07/06/18 23:04 78 18 132/62 92 L 07/06/18 20:00 99 F 75 18 122/53 90 L 07/06/18 18:45 100.1 F H 94 18 153/58 92 L 07/06/18 18:00 92 18 130/63 94 L 07/06/18 17:00 79 141/61 93 L 07/06/18 16:30 75 134/70 95 07/06/18 16:00 77 95 07/06/18 15:30 90 147/55 96 07/06/18 15:00 83 110/61 95 07/06/18 14:36 91 93 L 07/06/18 13:33 97.8 F 76 22 137/57 99 Intake and Output 07/06/18 07/07/18 07/07/18 22:59 06:59 14:59 Intake Total 600 Output Total 600 Balance 0 Intake: IV 600 .9 @ 150 600 Output: Urine 600 Other: Voiding Method Indwelling Catheter Indwelling Catheter Weight 74 kg PHYSICAL EXAMINATION: GENERAL: 83-year-old gentleman in no acute distress at the time of my examination HEENT: Head is atraumatic, normocephalic. Pupils equal, round. Sclera anicteric. Conjunctiva are clear. Mucous membranes of the mouth are moist. Neck is supple. There is no elevated jugular venous pressure. No carotid bruit is heard. HEART EXAMINATION: Heart S1, S2 systolic murmur is heard. CHEST EXAMINATION: Lungs are clear to auscultation and precussion. No chest wall tenderness is noted on palpation or with deep breathing. ABDOMEN: Soft, nontender. Bowel sounds are heard. No organomegaly noted. EXTREMITIES: 2+ peripheral pulses with no evidence of peripheral edema and no calf tenderness noted. NEUROLOGIC patient is awake, alert and oriented 3 . Results 07/06/18 14:27 07/07/18 03:06 Cardiac Enzymes 07/06/18 07/06/18 07/06/18 Range/Units 14:27 14:27 20:28 AST 80 H (17-59) U/L CK-MB (CK-2) 13.1 H 22.1 H (0.0-2.4) ng/mL Troponin I 0.218 H* 1.110 H* (0.000-0.034) ng/mL 07/07/18 07/07/18 Range/Units 03:06 03:06 AST 149 H (17-59) U/L CK-MB (CK-2) 30.0 H (0.0-2.4) ng/mL Troponin I 1.660 H* (0.000-0.034) ng/mL Coagulation 07/06/18 Range/Units 14:27 PT 11.0 (9.0-12.0) sec APTT 20.5 L (22.0-30.0) sec CBC 07/06/18 Range/Units 14:27 WBC 13.4 H (3.8-10.6) k/uL RBC 3.51 L (4.30-5.90) m/uL Hgb 10.7 L (13.0-17.5) gm/dL Hct 32.4 L (39.0-53.0) % Plt Count 139 L (150-450) k/uL Comprehensive Metabolic Panel 07/06/18 07/07/18 Range/Units 14:27 03:06 Sodium 139 137 (137-145) mmol/L Potassium 4.7 4.3 (3.5-5.1) mmol/L Chloride 106 109 H (98-107) mmol/L Carbon Dioxide 22 22 (22-30) mmol/L BUN 28 H 24 H (9-20) mg/dL Creatinine 2.00 H 1.55 H (0.66-1.25) mg/dL Glucose 114 H 101 H (74-99) mg/dL Calcium 9.5 8.2 L (8.4-10.2) mg/dL AST 80 H 149 H (17-59) U/L ALT 20 L 36 (21-72) U/L Alkaline Phosphatase 60 52 (38-126) U/L Total Protein 7.3 5.7 L (6.3-8.2) g/dL Albumin 4.2 3.1 L (3.5-5.0) g/dL Current Medications Generic Name Dose Route Start Last Admin Trade Name Freq PRN Reason Stop Dose Admin Hydrocodone Bitart/Acetaminophen 1 each 07/07/18 08:00 [place] 7.5-325 PO Q6H PRN Moderate Pain Hydrocodone Bitart/Acetaminophen 2 each 07/07/18 08:01 [place] 7.5-325 PO Q6H PRN Severe Pain Amlodipine Besylate 5 mg 07/07/18 09:00 07/07/18 09:09 Norvasc PO 5 mg DAILY ROM Administration Citalopram Hydrobromide 40 mg 07/07/18 09:00 07/07/18 09:09 Celexa PO 40 mg DAILY ROM Administration Docusate Sodium 100 mg 07/07/18 09:00 07/07/18 09:09 Colace PO 100 mg BID ROM Administration Sodium Chloride 1,000 mls @ 100 mls/hr 07/06/18 17:15 07/07/18 09:07 Saline 0.9% IV 100 mls/hr .Q10H ROM Administration Lidocaine 1 patch 07/07/18 09:00 07/07/18 09:10 Lidoderm TOPICAL 1 patch DAILY ROM Administration Metoprolol Tartrate 50 mg 07/07/18 09:00 07/07/18 09:09 Lopressor PO 50 mg BID ROM Administration Morphine Sulfate 2 mg 07/06/18 22:14 07/07/18 04:23 Morphine Sulfate (Inj) IVP 2 mg Q4HR PRN Administration Pain Morphine Sulfate 2 mg 07/07/18 08:06 07/07/18 10:42 Morphine Sulfate (Inj) IVP 2 mg Q1H PRN Administration Pain Naloxone HCl 0.2 mg 07/06/18 17:07 Narcan IV Q2M PRN Opioid Reversal Ondansetron HCl 4 mg 07/06/18 17:07 07/07/18 06:29 Zofran IVP 4 mg Q24H PRN Administration Nausea Pantoprazole Sodium 40 mg 07/07/18 07:30 07/07/18 06:09 Protonix PO 40 mg AC-BRKFST ROM Administration Tamsulosin HCl 0.4 mg 07/07/18 09:00 07/07/18 09:09 Flomax PO 0.4 mg DAILY ROM Administration Intake and Output 07/06/18 07/07/18 07/07/18 22:59 06:59 14:59 Intake Total 600 Output Total 600 Balance 0 Intake: IV 600 .9 @ 150 600 Output: Urine 600 Other: Voiding Method Indwelling Catheter Indwelling Catheter Weight 74 kg 07/06/18 14:27 07/07/18 03:06 EKG Interpretations (text) EKG shows sinus bradycardia with first-degree AV block, right bundle branch block pattern. Assessment and Plan Plan: Assessment and plan #1 fall with evidence of acute pelvic fractures #2 acute rhabdomyolysis #3 anemia of chronic disease #4 hypertension #5 hyperlipidemia #6 acute UTI #7 depression #8 CT of the chest highly suspicious for 5.2 cm right lower lobe lung cancer with metastatic subcarinal lymphadenopathy. #9 acute on chronic renal insufficiency Plan We will obtain an echocardiogram with Doppler study. Continue with IV fluids. Further recommendations to follow. DNP note has been reviewed, I agree with a documented findings and plan of care. Patient was seen and examined.
--- NOTE | 2018-07-07 12:19 | P.CNOR ---
History of Present Illness - [facility] Consult date: 07/07/18 Consult reason: fracture History of present illness: Patient is 83-year-old male who presented to [facility] yesterday afternoon after sustaining a fall at home the day prior. Patient fell and he was getting his male, he was able to get back into the house. After getting to the house, had a very difficult time ambulating, family member did bring him to the hospital. Upon arrival to the hospital, imaging lab test were done. Images demonstrated right superior and inferior pubic rami fractures along with a sacral fracture. Multiple right-sided rib fractures were also noted. Patient had significant lab abnormalities. Patient was admitted under internal medicine with multiple medical specialists on consult, this including our orthopedic service. Patient was evaluated at bedside, his son was present. Patient notes discomfort in the right buttock region and hip region, also including right chest area. He denies any previous orthopedic surgery involving the lower extremities. He states that he has a walker at home along with cane, he rarely uses them. He admits to recent falls. While resting in bed, his pain is tolerable. He notes most of discomfort when he attempts to move. He notes no significant discomfort involving the left lower extremity or bilateral upper extremities. He denies any new onset cervical thoracic or lumbar pain. His history of chronic low back pain which does take narcotic pain medication for. 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" History of Any Multi-Drug Resistant Organisms: None Reported Past Surgical History: Adenoidectomy, Cholecystectomy, Tonsillectomy Past Anesthesia/Blood Transfusion Reactions: No Reported Reaction Additional Past Anesthesia/Blood Transfusion Reaction / Comm: has never recieved any blood transfusions Smoking Status: Former smoker - Past Family History Mother Family Medical History: Cancer Additional Family Medical History / Comment(s): breast cancer Father Family Medical History: Cancer, Prostate Disorder Additional Family Medical History / Comment(s): prostate cancer Medications and Allergies Home Medications Medication Instructions Recorded Confirmed Type Citalopram Hydrobromide 40 mg PO DAILY 09/24/13 07/06/18 History [Citalopram HBr] HYDROcodone/APAP 10-325MG [Howard 1 tab PO Q4H 09/24/13 07/06/18 History 10] Omeprazole [PriLOSEC] 20 mg PO AC-BRKFST 09/24/13 07/06/18 History Simvastatin [Zocor] 80 mg PO HS 09/24/13 07/06/18 History amLODIPine [Norvasc] 5 mg PO DAILY 09/24/13 07/06/18 History Metoprolol Tartrate [Lopressor] 50 mg PO BID 07/06/18 07/06/18 History Tamsulosin HCl [Flomax] 0.4 mg PO DAILY 07/06/18 07/06/18 History Allergies Allergy/AdvReac Type Severity Reaction Status Date / Time Penicillins AdvReac Dyspnea Verified 07/06/18 20:33 shellfish derived AdvReac Dyspnea Verified 07/06/18 14:03 Physical Examination Right lower extremity: Limited range of motion and strength testing was assessed due to pain No obvious open lesions or sores present, no obvious areas of soft tissue swelling or erythema Logroll of the hip reproduces minimal discomfort in the pelvic region Tenderness with palpation noted over the lower lumbar and into the sacrum Sensation to light touch study extremities intact, cap is soft, no tenderness with palpation, dorsal pedis pulses 2+ Results - Labs Labs: Abnormal Lab Results - Last 24 Hours (Table) 07/06/18 07/06/18 07/06/18 Range/Units 14:27 14:27 14:27 WBC 13.4 H (3.8-10.6) k/uL RBC 3.51 L (4.30-5.90) m/uL Hgb 10.7 L (13.0-17.5) gm/dL Hct 32.4 L (39.0-53.0) % Plt Count 139 L (150-450) k/uL Neutrophils # 11.7 H (1.3-7.7) k/uL Lymphocytes # 0.6 L (1.0-4.8) k/uL APTT (22.0-30.0) sec Chloride (98-107) mmol/L BUN 28 H (9-20) mg/dL Creatinine 2.00 H (0.66-1.25) mg/dL Glucose 114 H (74-99) mg/dL Calcium (8.4-10.2) mg/dL Total Bilirubin 1.7 H (0.2-1.3) mg/dL AST 80 H (17-59) U/L ALT 20 L (21-72) U/L Total Creatine Kinase 2401 H* (55-170) U/L CK-MB (CK-2) 13.1 H (0.0-2.4) ng/mL Troponin I 0.218 H* (0.000-0.034) ng/mL Total Protein (6.3-8.2) g/dL Albumin (3.5-5.0) g/dL Urine Protein (Negative) Urine Ketones (Negative) Urine Blood (Negative) Ur Leukocyte Esterase (Negative) Urine WBC (0-5) /hpf Amorphous Sediment (None) /hpf Hyaline Casts (0-2) /lpf Urine Mucus (None) /hpf Urine Opiates Screen (NotDetected) 07/06/18 07/06/18 07/06/18 Range/Units 14:27 17:00 20:28 WBC (3.8-10.6) k/uL RBC (4.30-5.90) m/uL Hgb (13.0-17.5) gm/dL Hct (39.0-53.0) % Plt Count (150-450) k/uL Neutrophils # (1.3-7.7) k/uL Lymphocytes # (1.0-4.8) k/uL APTT 20.5 L (22.0-30.0) sec Chloride (98-107) mmol/L BUN (9-20) mg/dL Creatinine (0.66-1.25) mg/dL Glucose (74-99) mg/dL Calcium (8.4-10.2) mg/dL Total Bilirubin (0.2-1.3) mg/dL AST (17-59) U/L ALT (21-72) U/L Total Creatine Kinase 4895 H* (55-170) U/L CK-MB (CK-2) 22.1 H (0.0-2.4) ng/mL Troponin I 1.110 H* (0.000-0.034) ng/mL Total Protein (6.3-8.2) g/dL Albumin (3.5-5.0) g/dL Urine Protein 2+ H (Negative) Urine Ketones 1+ H (Negative) Urine Blood Moderate H (Negative) Ur Leukocyte Esterase Trace H (Negative) Urine WBC 17 H (0-5) /hpf Amorphous Sediment Rare H (None) /hpf Hyaline Casts 7 H (0-2) /lpf Urine Mucus Rare H (None) /hpf Urine Opiates Screen Detected H (NotDetected) 07/07/18 07/07/18 Range/Units 03:06 03:06 WBC (3.8-10.6) k/uL RBC (4.30-5.90) m/uL Hgb (13.0-17.5) gm/dL Hct (39.0-53.0) % Plt Count (150-450) k/uL Neutrophils # (1.3-7.7) k/uL Lymphocytes # (1.0-4.8) k/uL APTT (22.0-30.0) sec Chloride 109 H (98-107) mmol/L BUN 24 H (9-20) mg/dL Creatinine 1.55 H (0.66-1.25) mg/dL Glucose 101 H (74-99) mg/dL Calcium 8.2 L (8.4-10.2) mg/dL Total Bilirubin (0.2-1.3) mg/dL AST 149 H (17-59) U/L ALT (21-72) U/L Total Creatine Kinase 5529 H* (55-170) U/L CK-MB (CK-2) 30.0 H (0.0-2.4) ng/mL Troponin I 1.660 H* (0.000-0.034) ng/mL Total Protein 5.7 L (6.3-8.2) g/dL Albumin 3.1 L (3.5-5.0) g/dL Urine Protein (Negative) Urine Ketones (Negative) Urine Blood (Negative) Ur Leukocyte Esterase (Negative) Urine WBC (0-5) /hpf Amorphous Sediment (None) /hpf Hyaline Casts (0-2) /lpf Urine Mucus (None) /hpf Urine Opiates Screen (NotDetected) H & H 07/06/18 Range/Units 14:27 Hgb 10.7 L (13.0-17.5) gm/dL Hct 32.4 L (39.0-53.0) % Coagulation 07/06/18 Range/Units 14:27 INR 1.0 (<1.2) Result Diagrams: 07/06/18 14:27 07/07/18 03:06 Assessment and Plan Plan: Imaging: AP pelvis x-ray along with CT pelvis images and reports were reviewed. Reports demonstrate a superior and inferior pubic rami fractures, along with a sacral fracture. No significant displacement noted of the fractures. Assessment: 1. Right-sided inferior and superior pubic rami fracture 2. Sacrum fracture 3. Status post fall from standing 4. Multiple medical comorbidities Plan: I was able to discuss the case, including with physical exam findings imaging studies myotatic Dr. Chaney. No orthopedic surgical intervention needed at this time. Recommend conservative management, this to include physical therapy evaluation. I had a long discussion with patient today regarding the need of a walker when ambulating to help prevent further falls Pain control, continue current medication Other medical specialty recommendations We'll be available for any further questions regarding this patient Time with Patient: Less than 30
[2018-07-07] MEDS ORDERED: IPRATROPIUM-ALBUTEROL 3 ML NEB INHALATION PRN (13:50)
[2018-07-07 15:33] LABS: HCT 29.2 % (39.0-53.0); HGB 9.3 gm/dL (13.0-17.5); Hypochromasia Slight; MCHC 31.9 g/dL (31.0-37.0); MCV 97.2 fL (80.0-100.0); Mean Platelet Volume 8.6; Platelet Count 130 k/uL (150-450); RDW 13.9 % (11.5-15.5); WBC 13.2 k/uL (3.8-10.6)
[2018-07-07 15:50] LABS: Albumin 3.1 g/dL (3.5-5.0); Calcium 7.6 mg/dL (8.4-10.2); Potassium 4.7 mmol/L (3.5-5.1); Total Bilirubin 0.9 mg/dL (0.2-1.3); Total Protein 5.5 g/dL (6.3-8.2)
--- NOTE | 2018-07-07 15:58 | P.CNPUL ---
History of Present Illness Consult date: 07/07/18 Requesting physician: Mio Wilks Reason for consult: other Chief complaint: Right lower lobe lung mass with subcarinal lymphadenopathy History of present illness: This 83-year-old white male patient that follows at the [facility], who was brought to the emergency department on 07/06/2018 after sustaining a mechanical fall, patient tripped on a curb and fell onto his right hip. Afterwards patient had difficulty bearing weight, was unable to ambulate, and also had some discomfort in the right anterior ribs and abdomen. He didn't strike his head in the fall, but denied any loss of consciousness. No altered mentation, and no neurological deficits. X-ray of the hip and pelvis revealed right-sided pubic ramus fracture. CT of the chest, abdomen and pelvis showed moderate centrilobular emphysema, areas of interstitial scarring, and a suspicious right lower lobe mass measuring 5.2 cm with an enlarged 2.2 cm subcarinal lymph node. Subtle nondisplaced fractures of the right lateral fourth through seventh ribs. A lobulated 4.7 cm left kidney cyst. 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 CT of the head and cervical spine showed no acute fracture and no acute intracranial abnormality. EKG showed sinus rhythm with right bundle branch block, but no acute ischemic changes. 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 No past medical history of cancer. Denies any recent weight loss, appetite loss, no night sweats, no hemoptysis, no chest wall tenderness. 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 Patient's on is at the bedside, and he states patient has been experiencing falls at home, does ambulate with a walker. Currently patient is resting in bed, is having right-sided chest wall discomfort, worse with repositioning, but in no acute distress, pulse ox is 92% on 2 L per nasal cannula, is receiving pain medications, and has been noted to be hypotensive likely related to the effects of the narcotic analgesic. Afebrile. Lung sounds are diminished. No cough, no chest congestion. Patient's total CK was elevated at 2401, and has actually been trending up currently at 5529. Positive troponins of 0.218, 1.110, and 1.660, cardiology is following. Blood work showed a white blood cell count of 13.4, hemoglobin of 10.7, electrolytes were unremarkable, BUN was 28 and creatinine was 2.0 on admission. Plasma lactic acid is 1.0. Serum alcohol was less than 10, urine drug screen was positive for opiates, patient has a prescription for Rosanky. Were consulted in regards to the right lower lobe lung mass subcarinal adenopathy, suspicious for lung cancer. Review of Systems All systems: negative Constitutional: Denies chills, Denies fever Eyes: denies blurred vision, denies pain Ears, nose, mouth and throat: Denies headache, Denies sore throat Cardiovascular: Denies chest pain, Denies shortness of breath Respiratory: Reports pain, Denies cough Gastrointestinal: Denies abdominal pain, Denies diarrhea, Denies nausea, Denies vomiting Musculoskeletal: Reports frequent falls, Reports gait dysfunction, Denies myalgias Integumentary: Denies pruritus, Denies rash Neurological: Denies numbness, Denies weakness Psychiatric: Denies anxiety, Denies depression Endocrine: Denies fatigue, Denies weight change 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" History of Any Multi-Drug Resistant Organisms: None Reported Past Surgical History: Adenoidectomy, Cholecystectomy, Tonsillectomy Past Anesthesia/Blood Transfusion Reactions: No Reported Reaction Additional Past Anesthesia/Blood Transfusion Reaction / Comment(s): has never recieved any blood transfusions Smoking Status: Former smoker - Past Family History Mother Family Medical History: Cancer Additional Family Medical History / Comment(s): breast cancer Father Family Medical History: Cancer, Prostate Disorder Additional Family Medical History / Comment(s): prostate cancer Medications and Allergies Home Medications Medication Instructions Recorded Confirmed Type Citalopram Hydrobromide 40 mg PO DAILY 09/24/13 07/06/18 History [Citalopram HBr] HYDROcodone/APAP 10-325MG [Rosanky 1 tab PO Q4H 09/24/13 07/06/18 History 10] Omeprazole [PriLOSEC] 20 mg PO AC-BRKFST 09/24/13 07/06/18 History Simvastatin [Zocor] 80 mg PO HS 09/24/13 07/06/18 History amLODIPine [Norvasc] 5 mg PO DAILY 09/24/13 07/06/18 History Metoprolol Tartrate [Lopressor] 50 mg PO BID 07/06/18 07/06/18 History Tamsulosin HCl [Flomax] 0.4 mg PO DAILY 07/06/18 07/06/18 History Allergies Allergy/AdvReac Type Severity Reaction Status Date / Time Penicillins AdvReac Dyspnea Verified 07/06/18 20:33 shellfish derived AdvReac Dyspnea Verified 07/06/18 14:03 Physical Exam Vitals: Vital Signs Temp Pulse Pulse Resp BP BP BP 07/07/18 11:00 98.3 F 47 L 16 70/39 73/43 07/07/18 08:00 99.1 F 76 20 118/56 07/07/18 02:55 98.8 F 85 18 123/60 07/06/18 23:04 78 18 132/62 07/06/18 20:00 99 F 75 18 122/53 07/06/18 18:45 100.1 F H 94 18 153/58 07/06/18 18:00 92 18 130/63 07/06/18 17:00 79 141/61 07/06/18 16:30 75 134/70 07/06/18 16:00 77 07/06/18 15:30 90 147/55 07/06/18 15:00 83 110/61 07/06/18 14:36 91 Pulse Ox 07/07/18 11:00 92 L 07/07/18 08:00 95 07/07/18 02:55 93 L 07/06/18 23:04 92 L 07/06/18 20:00 90 L 07/06/18 18:45 92 L 07/06/18 18:00 94 L 07/06/18 17:00 93 L 07/06/18 16:30 95 07/06/18 16:00 95 07/06/18 15:30 96 07/06/18 15:00 95 07/06/18 14:36 93 L Intake and Output 07/06/18 07/07/18 07/07/18 22:59 06:59 14:59 Intake Total 600 Output Total 600 Balance 0 Intake: IV 600 .9 @ 150 600 Output: Urine 600 Other: Voiding Method Indwelling Catheter Indwelling Catheter Indwelling Catheter Weight 74 kg GENERAL EXAM: Alert, pleasant, 83-year-old white male, comfortable in no apparent distress. HEAD: Normocephalic/atraumatic. EYES: Normal reaction of pupils, equal size. Conjunctiva pink, sclera white. NOSE: Clear with pink turbinates. THROAT: No erythema or exudates. NECK: No masses, no JVD, no thyroid enlargement, no adenopathy. CHEST: No chest wall deformity. Symmetrical expansion. Right-sided chest wall tenderness worse with inspiration and repositioning related to multiple rib fractures on the right side LUNGS: Equal air entry with diminished breath sounds bilaterally, no rhonchi, no wheezing or rales. CVS: Regular rate and rhythm, normal S1 and S2, no gallops, no murmurs, no rubs ABDOMEN: Soft, nontender. No hepatosplenomegaly, normal bowel sounds, no guarding or rigidity. EXTREMITIES: No clubbing, no edema, no cyanosis, 2+ pulses and upper and lower extremities. MUSCULOSKELETAL: Muscle strength and tone normal. SPINE: No scoliosis or deformity SKIN: No rashes CENTRAL NERVOUS SYSTEM: Alert and oriented -3. No focal deficits, tone is normal in all 4 extremities. PSYCHIATRIC: Alert and oriented -3. Appropriate affect. Intact judgment and insight. Results - Laboratory Findings CBC and BMP: 07/07/18 15:07 07/07/18 15:07 PT/INR, D-dimer PT 11.0 sec (9.0-12.0) 07/06/18 14:27 INR 1.0 (<1.2) 07/06/18 14:27 Abnormal lab findings: Abnormal Labs 07/06/18 07/06/18 07/06/18 14:27 14:27 14:27 WBC 13.4 H RBC 3.51 L Hgb 10.7 L Hct 32.4 L Plt Count 139 L Neutrophils # 11.7 H Lymphocytes # 0.6 L APTT Chloride BUN 28 H Creatinine 2.00 H Glucose 114 H Calcium Total Bilirubin 1.7 H AST 80 H ALT 20 L Total Creatine Kinase 2401 H* CK-MB (CK-2) 13.1 H Troponin I 0.218 H* Total Protein Albumin Urine Protein Urine Ketones Urine Blood Ur Leukocyte Esterase Urine WBC Amorphous Sediment Hyaline Casts Urine Mucus Urine Opiates Screen 07/06/18 07/06/18 07/06/18 14:27 17:00 20:28 WBC RBC Hgb Hct Plt Count Neutrophils # Lymphocytes # APTT 20.5 L Chloride BUN Creatinine Glucose Calcium Total Bilirubin AST ALT Total Creatine Kinase 4895 H* CK-MB (CK-2) 22.1 H Troponin I 1.110 H* Total Protein Albumin Urine Protein 2+ H Urine Ketones 1+ H Urine Blood Moderate H Ur Leukocyte Esterase Trace H Urine WBC 17 H Amorphous Sediment Rare H Hyaline Casts 7 H Urine Mucus Rare H Urine Opiates Screen Detected H 07/07/18 07/07/18 03:06 03:06 WBC RBC Hgb Hct Plt Count Neutrophils # Lymphocytes # APTT Chloride 109 H BUN 24 H Creatinine 1.55 H Glucose 101 H Calcium 8.2 L Total Bilirubin AST 149 H ALT Total Creatine Kinase 5529 H* CK-MB (CK-2) 30.0 H Troponin I 1.660 H* Total Protein 5.7 L Albumin 3.1 L Urine Protein Urine Ketones Urine Blood Ur Leukocyte Esterase Urine WBC Amorphous Sediment Hyaline Casts Urine Mucus Urine Opiates Screen - Diagnostic Findings Chest x-ray: report reviewed, image reviewed Additional studies: CT of the brain and cervical spine, CT of the chest, abdomen, and pelvis, X- ray of the hip/pelvis, EKG reviewed Assessment and Plan Plan: Assessment: #1. Right lower lobe mass measuring 5.2 cm, with subcarinal adenopathy suspicious for lung cancer #2. Trauma related to a fall, and patient sustained multiple rib fractures on the right, involving lateral fourth through seventh ribs. #3. Acute pubic rami fracture, orthopedic surgery on consult #4. Rhabdomyolysis related to the above #5. Elevated troponins, likely related to musculoskeletal injury, cardiology is following #6. Hypotension, likely related to medications, improving #7. Former smoker, patient carries a [id number] smoking history, quit smoking in 1979 #8. Mild leukocytosis, likely reactive #9. Acute kidney injury related to rhabdomyolysis #10. Chronic kidney disease, baseline renal profile is unknown at this time #11. Hypertension, hyperlipidemia #12. Chronic back pain #13. Depression #14. Suspect underlying COPD, currently stable Plan: CT of the chest results have been reviewed with the patient and his son by Dr. Tai. The findings of the right lower lobe mass suspicious for lung cancer was discussed. For now continue with pain control, encourage deep breathing and coughing, nebulized bronchodilators, IV hydration. Blood and urine cultures are pending at this time, no fever or chills. Empiric antibiotics have been started in the form of Levaquin. Tissue diagnosis could be made via transthoracic needle aspiration or endobronchial needle biopsy, this could also be done on an outpatient basis when the patient is stable. Patient developed hypotension this afternoon, likely related to Norvasc, beta blockers, and pain medications. He is fairly comfortable, right now, no lightheadedness or dizziness, he did become bradycardic, he is being given a bolus of IV fluids of 0.9 normal saline, blood pressure is improving, place Norvasc and beta blockers on hold. No narcotic analgesics until the blood pressure recovers. May need to be moved to the intensive care unit for further monitoring if he is persistently hypotensive. We discussed CODE STATUS with the patient and his son , the patient would like to be a DO NOT RESUSCITATE, continue supportive treatment. Patient's son agreed, he states his siblings are also in agreement with his father's wishes. Continue supportive care, will follow. I performed a history & physical examination of the patient and discussed their management with my nurse practitioner, Sheri Rios. I reviewed the nurse practitioner's note and agree with the documented findings and plan of care. Lung sounds are positive for diminished. The findings and the impression was discussed with the patient. I attest to the documentation by the nurse practitioner. Time with Patient: Greater than 30
[2018-07-07] MEDS ORDERED: SODIUM CHLORIDE 0.9% 1,000 ML IV ONE ×2 (16:00→18:55)
--- NOTE | 2018-07-07 16:22 | P.PAINCN ---
History of Present Illness - Reason for Consult Consult date: 07/07/18 - History of Present Illness This is a 83 years old male, who was admitted to [facility] after he sustained a fall at home, and diagnostic study showed patient had a pelvic fracture, and patient also had multiple the right side hip fracture, patient was started on Hughes 5/325 one to 2 tablets every 6 hours, and he continued to have severe low back pain and pelvic pain, he is able to take deep breaths, without difficulty, he is not able to move his lower extremities secondary to pain, patient was evaluated by orthopedic surgery and recommended conservative treatment, patient had a history of chronic pain syndrome" secondary to chronic low back pain and he was diagnosed as an outpatient with Hughes 10/325 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" History of Any Multi-Drug Resistant Organisms: None Reported Past Surgical History: Adenoidectomy, Cholecystectomy, Tonsillectomy Past Anesthesia/Blood Transfusion Reactions: No Reported Reaction Additional Past Anesthesia/Blood Transfusion Reaction / Comm: has never recieved any blood transfusions Smoking Status: Former smoker - Past Family History Mother Family Medical History: Cancer Additional Family Medical History / Comment(s): breast cancer Father Family Medical History: Cancer, Prostate Disorder Additional Family Medical History / Comment(s): prostate cancer Medications and Allergies Home Medications Medication Instructions Recorded Confirmed Type Citalopram Hydrobromide 40 mg PO DAILY 09/24/13 07/06/18 History [Citalopram HBr] HYDROcodone/APAP 10-325MG [Hughes 1 tab PO Q4H 09/24/13 07/06/18 History 10] Omeprazole [PriLOSEC] 20 mg PO AC-BRKFST 09/24/13 07/06/18 History Simvastatin [Zocor] 80 mg PO HS 09/24/13 07/06/18 History amLODIPine [Norvasc] 5 mg PO DAILY 09/24/13 07/06/18 History Metoprolol Tartrate [Lopressor] 50 mg PO BID 07/06/18 07/06/18 History Tamsulosin HCl [Flomax] 0.4 mg PO DAILY 07/06/18 07/06/18 History Allergies Allergy/AdvReac Type Severity Reaction Status Date / Time Penicillins AdvReac Dyspnea Verified 07/06/18 20:33 shellfish derived AdvReac Dyspnea Verified 07/06/18 14:03 Physical Exam Vitals: Vital Signs Temp Pulse Pulse Resp BP BP BP 07/07/18 11:00 98.3 F 47 L 16 70/39 73/43 07/07/18 08:00 99.1 F 76 20 118/56 07/07/18 02:55 98.8 F 85 18 123/60 07/06/18 23:04 78 18 132/62 07/06/18 20:00 99 F 75 18 122/53 07/06/18 18:45 100.1 F H 94 18 153/58 07/06/18 18:00 92 18 130/63 07/06/18 17:00 79 141/61 07/06/18 16:30 75 134/70 Pulse Ox 07/07/18 11:00 92 L 07/07/18 08:00 95 07/07/18 02:55 93 L 07/06/18 23:04 92 L 07/06/18 20:00 90 L 07/06/18 18:45 92 L 07/06/18 18:00 94 L 07/06/18 17:00 93 L 07/06/18 16:30 95 Intake and Output 07/07/18 07/07/18 07/07/18 06:59 14:59 22:59 Intake Total 600 1200 Output Total 600 250 Balance 0 950 Intake: IV 600 1200 .9 @ 022 [id number] Output: Urine 600 250 Other: Voiding Method Indwelling Catheter Indwelling Catheter Weight 74 kg Physical Examinations : -Constitutiona : Cooperative , not in acute distress . -HEENT : nech ; supple , no Lymphadenopathy , normal thyroid size . eyes : no ptosis , no icterus, no photophobia . ENT : normal of hearing , normal oropharynx , no Thrush . - Respiratory : Chest clear to auscultations Bilaterally , no wheezing , no Rhonchi, tenderness over the right side of the chest . - Cardiovascula : regular rate and rhythem , S1 , S2 , no S3 , no S4. - Gastrointestina : abdomen soft no tenderness , bowel sounds , no organomegally . - Genitourinary : Defferred . - neurologic : Cranial nerve II to XII intact , no focal neurological deffecit . -psychatric : alert , oriented X 3 , appropriate affect , intact judgment and insight . -Lymphatic : no Lymphadenopathy . - musculoskeltal : Lumber spine moter stegnth lower extremities ,thigh and legs 5/5 Left side, she was unable to move his right lower extremity secondary to severe pain Results CBC & Chem 7: 07/07/18 15:07 07/07/18 15:07 Labs: Abnormal Lab Results - Last 24 Hours (Table) 07/06/18 07/06/18 07/07/18 Range/Units 17:00 20:28 03:06 WBC (3.8-10.6) k/uL RBC (4.30-5.90) m/uL Hgb (13.0-17.5) gm/dL Hct (39.0-53.0) % Plt Count (150-450) k/uL Chloride (98-107) mmol/L Carbon Dioxide (22-30) mmol/L BUN (9-20) mg/dL Creatinine (0.66-1.25) mg/dL Glucose (74-99) mg/dL Calcium (8.4-10.2) mg/dL AST (17-59) U/L Total Creatine Kinase 4895 H* 5529 H* (55-170) U/L CK-MB (CK-2) 22.1 H 30.0 H (0.0-2.4) ng/mL Troponin I 1.110 H* 1.660 H* (0.000-0.034) ng/mL Total Protein (6.3-8.2) g/dL Albumin (3.5-5.0) g/dL Urine Protein 2+ H (Negative) Urine Ketones 1+ H (Negative) Urine Blood Moderate H (Negative) Ur Leukocyte Esterase Trace H (Negative) Urine WBC 17 H (0-5) /hpf Amorphous Sediment Rare H (None) /hpf Hyaline Casts 7 H (0-2) /lpf Urine Mucus Rare H (None) /hpf Urine Opiates Screen Detected H (NotDetected) 07/07/18 07/07/1807/07/19 Range/Units 03:06 15:07 15:07 WBC 13.2 H (3.8-10.6) k/uL RBC 3.00 L (4.30-5.90) m/uL Hgb 9.3 L (13.0-17.5) gm/dL Hct 29.2 L (39.0-53.0) % Plt Count 130 L (150-450) k/uL Chloride 109 H 109 H (98-107) mmol/L Carbon Dioxide 20 L (22-30) mmol/L BUN 24 H 28 H (9-20) mg/dL Creatinine 1.55 H 2.06 H (0.66-1.25) mg/dL Glucose 101 H 122 H (74-99) mg/dL Calcium 8.2 L 7.6 L (8.4-10.2) mg/dL AST 149 H 185 H (17-59) U/L Total Creatine Kinase (55-170) U/L CK-MB (CK-2) (0.0-2.4) ng/mL Troponin I (0.000-0.034) ng/mL Total Protein 5.7 L 5.5 L (6.3-8.2) g/dL Albumin 3.1 L 3.1 L (3.5-5.0) g/dL Urine Protein (Negative) Urine Ketones (Negative) Urine Blood (Negative) Ur Leukocyte Esterase (Negative) Urine WBC (0-5) /hpf Amorphous Sediment (None) /hpf Hyaline Casts (0-2) /lpf Urine Mucus (None) /hpf Urine Opiates Screen (NotDetected) Assessment and Plan Plan: Assessment AND PLAN= acute on chronic low back pain secondary to pelvic fracture , orthopedic surgery recommended conservative treatment Acute chest wall pain secondary to rib fractures Recommend start patient on Lidoderm patch 5% to be applied to the painful area in the chest Recommend change Hughes to 7.5/325 one to 2 tabletes every 6 hours, Recommend change morphine IV to 2 mg every hour when necessary Time with Patient: Less than 30 PQRS Measure Charge Sheet PQRS Narrative: Smoking Status Former smoker Blood Pressure [Right Arm] 73/43 Blood Pressure [Left Arm] 70/39 Blood Pressure 130/63 Pain Intensity [Bilateral 5 Chest] Pain Intensity 5 Pain Scale Used Numeric (1 - 10) Scale Used Numeric (1 - 10) Home Medications: Ambulatory Orders Citalopram Hydrobromide [Citalopram HBr] 40 mg PO DAILY 09/24/13 HYDROcodone/APAP 10-325MG [Hughes 10] 1 tab PO Q4H 09/24/13 Omeprazole [PriLOSEC] 20 mg PO AC-BRKFST 09/24/13 Simvastatin [Zocor] 80 mg PO HS 09/24/13 amLODIPine [Norvasc] 5 mg PO DAILY 09/24/13 Metoprolol Tartrate [Lopressor] 50 mg PO BID 07/06/18 Tamsulosin HCl [Flomax] 0.4 mg PO DAILY 07/06/18
[2018-07-07] MEDS: HEPARIN SODIUM,PORCINE 5,000 UNIT/ML 1 ML VIAL SQ SCH ×2 (17:06→20:52)
[2018-07-07] MEDS: LEVOFLOXACIN 500MG-D5W PMX 500 MG in DEXTROSE/WATER 1 100ML.BAG IVPB SCH (17:06)
--- NOTE | 2018-07-07 18:25 | PN ---
PROGRESS NOTE DATE OF SERVICE: 07/07/2018 This 83-year-old gentleman who was admitted with a fall as well as multiple fractures, including the right side of the pelvis as well as multiple rib fractures, also had acute rhabdomyolysis. The patient also continues to have hypotension with possible prerenal factors. The patient also had suspected myocardial infarction. Troponin is also elevated. Pain Management has been consulted. Multiple consultants are following the patient closely. The patient is being closely monitored in [facility] at this time. Echocardiogram has been ordered. Past medical history reviewed. REVIEW OF SYSTEMS: CARDIOVASCULAR SYSTEM: No angina, palpitations. Otherwise as mentioned earlier. RESPIRATORY SYSTEM: As mentioned earlier. GI: No nausea, vomiting. : No dysuria or retention. NERVOUS SYSTEM: No numbness, weakness. MUSCULOSKELETAL: As mentioned earlier. PHYSICAL EXAMINATION: Patient is alert, oriented x3. Pulse 52, blood pressure 86/46, respiration 18, temperature 98.7, pulse ox 94% on 3 L. HEENT: Conjunctivae normal. NECK: No jugular venous distention. CARDIOVASCULAR SYSTEM: S1, S2 muffled. RESPIRATORY SYSTEM: Breath sounds diminished at the bases. A few scattered rhonchi and crackles. ABDOMEN: Soft, obese, non-tender. No mass palpable. LEGS: No edema. No swelling. NERVOUS SYSTEM: Higher functions as mentioned earlier. Moves all 4 limbs. No focal motor or sensory deficit. LYMPHATICS: No lymph node palpable in neck, axillae or groin. SKIN: No ulcer, rash, bleeding. LABS: Labs at this time show WBC 13.2, hemoglobin 9.3, sodium 137, potassium 4.8. Creatinine is 2.06. Troponin 1.66. Total CK is 5529. ASSESSMENT: 1. Fall and acute pelvis fracture, right superior and inferior pubic rami, with severe pain and gait dysfunction. 2. Acute rhabdomyolysis. 3. Possible acute right-sided pneumonia, possibly gram-negative. 4. Elevated troponin up to 1.10, possible acute ldw-AQ-ljirsaw-elevation myocardial infarction. 5. Severe hypotension secondary to dehydration. Rule out cardiogenic shock. 6. History of fever, elevated white count; possible acute urinary tract infection, present on admission, not related to [place] catheter. 7. Increased creatinine with possible acute renal failure with acute on chronic kidney disease, stage III baseline. 8. Anemia, normocytic; anemia of chronic disease. 9. Increased AST. 10.Gastroesophageal reflux disease. 11.Hypertension. 12.Hyperlipidemia. 13.History of degenerative joint disease. 14.History of prostate disorder. 15.History of gout. 16.History of asbestos exposure. 17.Possible right lung cancer. 18.History of adenoidectomy. 19.Major depression. 20.History of nicotine dependence. 21.NO CODE, NO CPR, NO VENT. RECOMMENDATIONS AND DISCUSSION: I recommend to continue current medication, continue with symptomatic treatment. Multiple consultants' notes are appreciated. PT/OT evaluation. As for the hypotension, exact etiology unknown; could be multifactorial. I would recommend continuing the IV boluses, hold blood pressure medication, closely monitor. If the blood pressure is not coming up, ICU transfer may be an option. Otherwise, the CT scan findings and the pulmonary consultation are noted. The patient also had a possible pneumonia on the right. I would also recommend broad-spectrum IV antibiotic coverage, obtaining cultures. Further diagnostic workup may be planned as an outpatient. The CODE STATUS is changed to NO CODE. Will continue to monitor. The prognosis remains guarded. If the patient stabilizes, continue PT/OT evaluation. ECF rehab is an option in the next few days. Also discussed with the family, the son at the bedside. Further recommendations to follow. MMODL / IJN: [id number] /
[2018-07-07 18:26] LABS: Glucose,Whole Blood 124 mg/dL (75-99)
[2018-07-07] MEDS: HYDROcodone/APAP 7.5-325MG 1 EACH TAB PO PRN (19:00)
[2018-07-07] MEDS: IPRATROPIUM-ALBUTEROL 3 ML NEB INHALATION SCH (20:12)
[2018-07-07] MEDS ORDERED: METOPROLOL TARTRATE 12.5 MG TAB PO SCH (21:00)
[2018-07-07] MEDS ORDERED: NOREPINEPHRINE 4 MG in SODIUM CHLORIDE 0.9% 250 ML IV SCH (22:00)
[2018-07-08] MEDS ORDERED: PANTOPRAZOLE 40 MG TABLET PO STA (02:37)
[2018-07-08] MEDS: MORPHINE SULFATE 2 MG/ML SYRINGE IVP PRN ×4 (03:56→21:43)
[2018-07-08 04:57] LABS: Basophils % (A) 0 %; Eosinophils # (A) 0.1 k/uL (0-0.7); Eosinophils % (A) 1 %; Lymphocytes # (A) 0.7 k/uL (1.0-4.8); Lymphocytes % (A) 7 %; MCH 31.9 pg (25.0-35.0); MCHC 33.3 g/dL (31.0-37.0); MCV 95.7 fL (80.0-100.0); Mean Platelet Volume 7.2; Monocytes # (A) 0.7 k/uL (0-1.0); Monocytes % (A) 7 %; Neutrophils # (A) 8.6 k/uL (1.3-7.7); Neutrophils % (A) 83 %; Platelet Count 134 k/uL (150-450); RBC 2.82 m/uL (4.30-5.90); RDW 13.7 % (11.5-15.5); WBC 10.4 k/uL (3.8-10.6)
[2018-07-08 05:08] LABS: Albumin 2.7 g/dL (3.5-5.0); Calcium 7.7 mg/dL (8.4-10.2); Magnesium 1.6 mg/dL (1.6-2.3); Phosphorus 3.7 mg/dL (2.5-4.5); Potassium 4.8 mmol/L (3.5-5.1); Total Bilirubin 0.7 mg/dL (0.2-1.3); Total Protein 5.3 g/dL (6.3-8.2)
[2018-07-08] MEDS: PANTOPRAZOLE 40 MG TABLET PO SCH (06:50)
[2018-07-08] MEDS: HYDROcodone/APAP 7.5-325MG 1 EACH TAB PO PRN ×2 (06:50→14:01)
[2018-07-08] MEDS: SODIUM CHLORIDE 0.9% 1,000 ML IV SCH ×2 (06:53→12:37)
[2018-07-08] MEDS: IPRATROPIUM-ALBUTEROL 3 ML NEB INHALATION SCH ×3 (07:12→15:20)
--- NOTE | 2018-07-08 07:35 | ECHOF ---
Referral Reason:pre op clearance MEASUREMENTS -------- HEIGHT: 170.2 cm WEIGHT: 73.9 kg BP: RVIDd: 2.8 cm (< 3.3) IVSd: 1.6 cm (0.6 - 1.1) LVIDd: 3.3 cm (3.9 - 5.3) LVPWd: 1.4 cm (0.6 - 1.1) IVSs: 2.2 cm LVIDs: 2.0 cm LVPWs: 2.1 cm Ao Diam: 4.0 cm (2.0 - 3.7) AV Cusp: 2.5 cm (1.5 - 2.6) LA Diam: 3.4 cm (2.7 - 3.8) MV EXCURSION: 18.395 mm (> 18.000) MV EF SLOPE: 126 mm/s (70 - 150) EPSS: 0.7 cm MV E Ran: 0.88 m/s MV DecT: 294 ms MV A Ran: 0.30 m/s MV E/A Ratio: 2.92 AR PHT: 211 ms RAP: 5.00 mmHg RVSP: 30.65 mmHg FINDINGS -------- Sinus rhythm. This was a technically difficult study with suboptimal views. The left ventricular size is normal. There is moderate concentric left ventricular hypertrophy. O verall left ventricular systolic function is normal with, an EF between 55 - 60 %. Right side appears enlarged. The left atrium is normal in size. The right atrium is normal in size. Lumason used The aortic valve is trileaflet, and appears structurally normal. No aortic stenosis or regurgitation. Trace amount of aortic regurgitation. Mild mitral regurgitation is present. Mild tricuspid regurgitation present. The right ventricular systolic pressure, as measured by Doppl er, is 30.65mmHg. Trace/mild (physiologic) pulmonic regurgitation. The aortic root is dilated measuring 4.0 cm. IVC Not well visulized. The pericardium is normal. CONCLUSIONS -------- 1. Sinus rhythm. 2. This was a technically difficult study with suboptimal views. 3. The left ventricular size is normal. 4. There is moderate concentric left ventricular hypertrophy. 5. Overall left ventricular systolic function is normal with, an EF between 55 - 60 %. 6. Right side appears enlarged. 7. The left atrium is normal in size. 8. The right atrium is normal in size. 9. Lumason used 10. The aortic valve is trileaflet, and appears structurally normal. No aortic stenosis or regurgitat ion. 11. Trace amount of aortic regurgitation. 12. Mild mitral regurgitation is present. 13. Mild tricuspid regurgitation present. 14. The right ventricular systolic pressure, as measured by Doppler, is 30.65mmHg. 15. Trace/mild (physiologic) pulmonic regurgitation. 16. The aortic root is dilated measuring 4.0 cm. 17. IVC Not well visulized. 18. The pericardium is normal. TRANSLITERATOR: Beverly Christian RDCS
--- NOTE | 2018-07-08 07:59 | PN ---
PROGRESS NOTE Mr. Kimble is an 83-year-old male who presented after a fall and fractured ribs. He was transferred to the ICU yesterday because of hypotension. He is feeling sore. He denies any significant chest pain. He denies any dizziness or palpitation. He denies any nausea. On the CT scan, he was found to have a right lower lobe mass raising the possibility of malignancy. His EKG yesterday raised the possibility of atrial fibrillation although the baseline was not very clear. This morning, he is in sinus mechanism with second-degree AV block Mobitz type 1. He is receiving IV fluid, but is not on vasopressor at this time. He was on a short period of vasopressor last night. His chest x-ray shows mild congestion. He continues to be at this time on heparin subcu, Protonix, IV fluid, Flomax. PHYSICAL EXAMINATION: Blood pressure 119/60 with a heart rate in the 50s. LUNGS: Clear anteriorly. HEART: Regular rate and rhythm, S1, S2 with a systolic murmur at the base. No diastolic murmur. ABDOMEN: Soft. Mild tenderness. No rebound. EXTREMITIES: No edema. LAB DATA: Revealed BUN and creatinine 36 and 2.48. Potassium 4.8, hemoglobin of 9. His CK enzyme is down to 4,406. His AST is 518, ALT 172. His troponin peaked at 1.6. IMPRESSION: 1. Status post fall and rhabdomyolysis. 2. Hypotension, improving. 3. Episode of second-degree AV block Mobitz type 1. 4. Questionable atrial fibrillation on an EKG. 5. Worsening renal function. 6. Anemia. 7. Lung mass. Patient will require further workup later on. 8. Infrarenal abdominal aneurysm measuring 3 cm. 9. Coronary calcification consistent with coronary artery disease. RECOMMENDATION: From the cardiac standpoint, will review the results of his echocardiogram. I will continue the rest of his medical regimen, follow his renal function. At this time, I will hold on diuretics because of his blood pressure, In regard to his rhythm no intervention is needed at this time. Depending on his progress, further recommendation will be made. MMODL / IJN: [id number] / MTDD
--- NOTE | 2018-07-08 08:48 | XR ---
EXAMINATION TYPE: XR chest 1V DATE OF EXAM: 07/08/2018 COMPARISON: Prior chest x-ray 07/07/2018 HISTORY: Rib fractures, intensive care unit management TECHNIQUE: Single frontal view of the chest is obtained. FINDINGS: Technique is somewhat apical lordotic. There are cardiac leads. No evident pneumothorax or pleural effusion. Right lower lobe lung mass persists. No displaced rib fracture. Heart size is stab le. IMPRESSION: Right lower lobe lung mass.
[2018-07-08] MEDS: CITALOPRAM HYDROBROMIDE 20 MG TAB PO SCH (09:32)
[2018-07-08] MEDS: HEPARIN SODIUM,PORCINE 5,000 UNIT/ML 1 ML VIAL SQ SCH ×2 (09:32→21:43)
[2018-07-08] MEDS: DOCUSATE 100 MG CAP PO SCH ×3 (09:33→21:48)
[2018-07-08] MEDS: TAMSULOSIN 0.4 MG CAP.ER.24H PO SCH (09:33)
[2018-07-08] MEDS: LIDOCAINE 5% PATCH TOPICAL SCH (09:38)
--- NOTE | 2018-07-08 10:23 | P.PN ---
Subjective Progress Note Date: 07/08/18 Principal diagnosis: Status post fall and multiple right-sided rib fractures, acute rhabdomyolysis, hypotension and second degree AV block Mobitz type I his 83-year-old white male patient that follows at the [facility], who was brought to the emergency department on 07/06/2018 after sustaining a mechanical fall, patient tripped on a curb and fell onto his right hip. Afterwards patient had difficulty bearing weight, was unable to ambulate, and also had some discomfort in the right anterior ribs and abdomen. He didn't strike his head in the fall, but denied any loss of consciousness. No altered mentation, and no neurological deficits. X-ray of the hip and pelvis revealed right-sided pubic ramus fracture. CT of the chest, abdomen and pelvis showed moderate centrilobular emphysema, areas of interstitial scarring, and a suspicious right lower lobe mass measuring 5.2 cm with an enlarged 2.2 cm subcarinal lymph node. Subtle nondisplaced fractures of the right lateral fourth through seventh ribs. A lobulated 4.7 cm left kidney cyst. 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 CT of the head and cervical spine showed no acute fracture and no acute intracranial abnormality. EKG showed sinus rhythm with right bundle branch block, but no acute ischemic changes. 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 No past medical history of cancer. Denies any recent weight loss, appetite loss, no night sweats, no hemoptysis, no chest wall tenderness. Other medical history includes hypertension, hyperlipidemia, chronic kidney disease, patient used to follow with a keno manager, past history of EtOH abuse currently in remission, chronic back pain, GERD/reflux, depression. Patient's on is at the bedside, and he states patient has been experiencing falls at home , does ambulate with a walker. Currently patient is resting in bed, is having right-sided chest wall discomfort, worse with repositioning, but in no acute distress, pulse ox is 92% on 2 L per nasal cannula, is receiving pain medications, and has been noted to be hypotensive likely related to the effects of the narcotic analgesic. Afebrile. Lung sounds are diminished. No cough, no chest congestion. Patient's total CK was elevated at 2401, and has actually been trending up currently at 5529. Positive troponins of 0.218, 1.110, and 1.660, cardiology is following. Blood work showed a white blood cell count of 13.4, hemoglobin of 10.7, electrolytes were unremarkable, BUN was 28 and creatinine was 2.0 on admission. Plasma lactic acid is 1.0. Serum alcohol was less than 10, urine drug screen was positive for opiates, patient has a prescription for [place]. Were consulted in regards to the right lower lobe lung mass subcarinal adenopathy, suspicious for lung cancer. Patient was reevaluated today on 07/08/2018. Late afternoon yesterday, patient was transferred to the intensive care unit mostly because of persistent hypotension, and bradycardia arrhythmia with second degree AV block, Mobitz type I. His hypotension was felt to be multifactorial, mostly related to blood pressure medications, narcotics for pain control, and possibly relative dehydration. Patient was given fluids did not improve much, hence he was placed overnight on a small dose of norepinephrine. This morning he is off norepinephrine, blood pressure is much better controlled, and the patient is feeling better. He is complaining however of some difficulty swallowing and I recommended a modified barium swallow, patient is having difficulty swallowing solid food and liquids. Pain seems to be better controlled from his rib fractures. Labs were reviewed relatively normal CBC hemoglobin however is 9 electrolytes are normal BUN is up to 36 creatinine is 2.48. CPK which was initially elevated secondary to fall is coming down to 4406 today. Patient is still receiving fluids at 100 mL per hour. Urine output is reasonable without any diuretics at 40 mL per hour. Chest x-ray was reviewed, right lower lobe mass was again noted. And this was also noted on the CT of the chest. Objective - Vital Signs Vital signs: Vital Signs Temp 99.0 F 07/08/18 08:00 Pulse 54 L 07/08/18 09:00 Resp 22 07/08/18 09:00 BP 129/60 07/08/18 09:00 Pulse Ox 93 L 07/08/18 09:00 Intake & Output 07/07/18 07/08/18 07/08/18 18:59 06:59 18:59 Intake Total 1440 900 300 Output Total 250 130 85 Balance 1190 770 215 Weight 86 kg Intake: IV 1200 900 300 .9 @ 150 1200 Sodium Chloride 0.9% 1, 900 300 000 ml @ 100 mls/hr IV . Q10H [facility] Rx#:[id number] Oral 240 Output: Urine 250 130 85 Other: Voiding Method Indwelling Catheter Indwelling Catheter - Exam Physical Exam revealed 83-year-old white male, comfortable, in no distress. Head: Atraumatic normocephalic HEENT:[Neck is supple.] [No neck masses.] [No thyromegaly.] [No JVD.] PERRLA, EOMI, no icterus. Chest: [Clear throughout, no crackles, no rhonchi, no wheezes.] Tenderness over the right sided chest wall area. Cardiac Exam: [Irregular rhythm Normal S1 and S2, no S3 gallop, 2/6 systolic murmur thought the precordium..] Abdomen: [Soft, nontender, no megaly, no rebound, no guarding, normal bowel sounds. Extremities: [No clubbing, no edema, no cyanosis.] Good pulses bilaterally Neurological Exam: [No focal neurologic deficit.] Alert oriented 3. Psychiatric: Normal mood, affect and mental status exam. Skin: No rashes. - Labs CBC & Chem 7: 07/08/18 04:11 07/08/18 04:11 Labs: Abnormal Lab Results - Last 24 Hours (Table) 07/07/18 07/07/18 07/07/18 Range/Units 15:07 15:07 18:25 WBC 13.2 H (3.8-10.6) k/uL RBC 3.00 L (4.30-5.90) m/uL Hgb 9.3 L (13.0-17.5) gm/dL Hct 29.2 L (39.0-53.0) % Plt Count 130 L (150-450) k/uL Neutrophils # (1.3-7.7) k/uL Lymphocytes # (1.0-4.8) k/uL Sodium (137-145) mmol/L Chloride 109 H (98-107) mmol/L Carbon Dioxide 20 L (22-30) mmol/L BUN 28 H (9-20) mg/dL Creatinine 2.06 H (0.66-1.25) mg/dL Glucose 122 H (74-99) mg/dL POC Glucose (mg/dL) 124 H (75-99) mg/dL Calcium 7.6 L (8.4-10.2) mg/dL AST 185 H (17-59) U/L ALT (21-72) U/L Creatine Kinase (55-170) U/L Total Protein 5.5 L (6.3-8.2) g/dL Albumin 3.1 L (3.5-5.0) g/dL 07/08/18 07/08/18 Range/Units 04:11 04:11 WBC (3.8-10.6) k/uL RBC 2.82 L (4.30-5.90) m/uL Hgb 9.0 L (13.0-17.5) gm/dL Hct 27.0 L (39.0-53.0) % Plt Count 134 L (150-450) k/uL Neutrophils # 8.6 H (1.3-7.7) k/uL Lymphocytes # 0.7 L (1.0-4.8) k/uL Sodium 136 L (137-145) mmol/L Chloride 111 H (98-107) mmol/L Carbon Dioxide 18 L (22-30) mmol/L BUN 36 H (9-20) mg/dL Creatinine 2.48 H (0.66-1.25) mg/dL Glucose (74-99) mg/dL POC Glucose (mg/dL) (75-99) mg/dL Calcium 7.7 L (8.4-10.2) mg/dL AST 518 H (17-59) U/L ALT 172 H (21-72) U/L Creatine Kinase 4406 H* (55-170) U/L Total Protein 5.3 L (6.3-8.2) g/dL Albumin 2.7 L (3.5-5.0) g/dL Microbiology - Last 24 Hours (Table) 07/07/18 14:49 Urine Culture - Preliminary Urine,Clean Catch Assessment and Plan Assessment: Impression: 1 hypotension secondary to blood pressure medications which are presently on hold, narcotics, and the dose has been cut down, and relative dehydration. 2 multiple rib fractures secondary to fall, fourth through seventh ribs on the right side. 3 acute pubic rami fracture secondary to fall. 4 acute rhabdomyolysis and acute kidney injury related to rhabdomyolysis and also related to hypotension. 5 right lung mass strongly suspicious for bronchogenic carcinoma, this will need to be addressed on an outpatient basis, may eventually consider CT-guided needle biopsy by interventional radiology. The mass seems to be abutting the right pleural surface. It is associated with subcarinal lymphadenopathy. 6 COPD, currently stable and inactive. 7 history of depression 8 chronic back pain 9 [id number] smoker, quit in 1979. 10 elevated troponin, nonspecific, being addressed by cardiology on the case. 11 dysphagia, we will arrange for modified barium swallow and possibly GI consultation depending on the findings of the modified barium swallow. Recommendation: Considering the patient's blood pressure is improving and he is off pressors at this point, we'll continue fluids, continue to hold his blood pressure medications, and we'll arrange for the patient to be transferred back to a monitor bed on selective. Continue IV fluids continue to monitor renal profile, continue bronchodilators, continue pain control, continue CODE STATUS/ DO NOT RESUSCITATE continue supportive care measures, we will continue to follow closely. Prognosis considering his lung mass is definitely poor and guarded. Patient and son were both made aware of the right lung mass, and this is to be addressed eventually on outpatient basis. Time with Patient: Less than 30
--- NOTE | 2018-07-08 10:24 | P.PN ---
<Jolie Samuel A - Last Filed: 07/08/18 10:18> Subjective Progress Note Date: 07/08/18 CHIEF COMPLAINT: Fall HISTORY OF PRESENT ILLNESS: Patient examined at the bedside. He was transferred to ICU yesterday due to hypotension. He required vasopressors for a short period of time, currently off. Blood pressure is stable this morning. He reports his pain is tolerable. Tolerating PO intake. Denies nausea or vomiting. PHYSICAL EXAM: VITAL SIGNS: Currently stable. GENERAL: Well-developed in no acute distress. HEENT: No sclera icterus. Extraocular movements grossly intact. Moist buccal mucosa. Head is atraumatic, normocephalic. Hears conversational speech. No nasal drainage. NECK: Supple without lymphadenopathy. CHEST: Non-labored respirations and equal bilateral excursions. CARDIOVASCULAR: Regular rate with regular rhythm. Palpable 2+ radial pulses. ABDOMEN: Soft. Nondistended. Nontender. MUSCULOSKELETAL: No clubbing, cyanosis or edema. NEUROLOGIC: No focal or lateralizing signs. Cranial nerves II through XII grossly intact. PSYCH: Appropriate affect. Alert and oriented to person, place and time. SKIN: Well perfused. Good skin turgor. Large amount of ecchymosis to right chest wall. ASSESSMENT: 1. Traumatic fall 2. Right-sided pubic ramus fracture 3. Nondisplaced fracture of the right lateral fourth through seventh rib 4. Acute rhabdomyolysis PLAN: 1. Orthopedics, pulmonary, anesthesia, and medicine are on consult. Appreciate recommendations. 2. Pain control 3. Incentive spirometry Nurse practitioner note has been reviewed by physician. Signing provider agrees with the documented findings, assessment, and plan of care. Objective - Vital Signs Vital signs: Vital Signs Temp 99.0 F 07/08/18 08:00 Pulse 54 L 07/08/18 09:00 Resp 22 07/08/18 09:00 BP 129/60 07/08/18 09:00 Pulse Ox 93 L 07/08/18 09:00 Intake & Output 07/07/18 07/08/18 07/08/18 18:59 06:59 18:59 Intake Total 1440 900 300 Output Total 250 130 85 Balance 1190 770 215 Weight 86 kg Intake: IV 1200 900 300 .9 @ 150 1200 Sodium Chloride 0.9% 1, 900 300 000 ml @ 100 mls/hr IV . Q10H [facility] Rx#:[id number] Oral 240 Output: Urine 250 130 85 Other: Voiding Method Indwelling Catheter Indwelling Catheter - Labs CBC & Chem 7: 07/08/18 04:11 07/08/18 04:11 Labs: Abnormal Lab Results - Last 24 Hours (Table) 07/07/18 07/07/18 07/07/18 Range/Units 15:07 15:07 18:25 WBC 13.2 H (3.8-10.6) k/uL RBC 3.00 L (4.30-5.90) m/uL Hgb 9.3 L (13.0-17.5) gm/dL Hct 29.2 L (39.0-53.0) % Plt Count 130 L (150-450) k/uL Neutrophils # (1.3-7.7) k/uL Lymphocytes # (1.0-4.8) k/uL Sodium (137-145) mmol/L Chloride 109 H (98-107) mmol/L Carbon Dioxide 20 L (22-30) mmol/L BUN 28 H (9-20) mg/dL Creatinine 2.06 H (0.66-1.25) mg/dL Glucose 122 H (74-99) mg/dL POC Glucose (mg/dL) 124 H (75-99) mg/dL Calcium 7.6 L (8.4-10.2) mg/dL AST 185 H (17-59) U/L ALT (21-72) U/L Creatine Kinase (55-170) U/L Total Protein 5.5 L (6.3-8.2) g/dL Albumin 3.1 L (3.5-5.0) g/dL 07/08/18 07/08/18 Range/Units 04:11 04:11 WBC (3.8-10.6) k/uL RBC 2.82 L (4.30-5.90) m/uL Hgb 9.0 L (13.0-17.5) gm/dL Hct 27.0 L (39.0-53.0) % Plt Count 134 L (150-450) k/uL Neutrophils # 8.6 H (1.3-7.7) k/uL Lymphocytes # 0.7 L (1.0-4.8) k/uL Sodium 136 L (137-145) mmol/L Chloride 111 H (98-107) mmol/L Carbon Dioxide 18 L (22-30) mmol/L BUN 36 H (9-20) mg/dL Creatinine 2.48 H (0.66-1.25) mg/dL Glucose (74-99) mg/dL POC Glucose (mg/dL) (75-99) mg/dL Calcium 7.7 L (8.4-10.2) mg/dL AST 518 H (17-59) U/L ALT 172 H (21-72) U/L Creatine Kinase 4406 H* (55-170) U/L Total Protein 5.3 L (6.3-8.2) g/dL Albumin 2.7 L (3.5-5.0) g/dL Microbiology - Last 24 Hours (Table) 07/07/18 14:49 Urine Culture - Preliminary Urine,Clean Catch <Ronny Martinez - Last Filed: 07/08/18 14:25> Subjective As above. Patient doing much better today. Pain is well controlled currently. He is becoming more active. Will begin regular diet once speech evaluation cleared. We'll reevaluate with you tomorrow. Objective - Vital Signs Vital signs: Vital Signs Temp 99.0 F 07/08/18 08:00 Pulse 54 L 07/08/18 09:00 Resp 22 07/08/18 09:00 BP 129/60 07/08/18 09:00 Pulse Ox 93 L 07/08/18 09:00 Intake & Output 07/07/18 07/08/18 07/08/18 18:59 06:59 18:59 Intake Total 1440 900 600 Output Total 250 130 265 Balance 1190 770 335 Weight 86 kg Intake: IV 1200 900 600 .9 @ 150 1200 Sodium Chloride 0.9% 1, 900 600 000 ml @ 100 mls/hr IV . Q10H [facility] Rx#:[id number] Oral 240 Output: Urine 250 130 265 Other: Voiding Method Indwelling Catheter Indwelling Catheter - Labs CBC & Chem 7: 07/08/18 04:11 07/08/18 04:11 Labs: Abnormal Lab Results - Last 24 Hours (Table) 07/07/18 07/07/18 07/07/18 Range/Units 15:07 15:07 18:25 WBC 13.2 H (3.8-10.6) k/uL RBC 3.00 L (4.30-5.90) m/uL Hgb 9.3 L (13.0-17.5) gm/dL Hct 29.2 L (39.0-53.0) % Plt Count 130 L (150-450) k/uL Neutrophils # (1.3-7.7) k/uL Lymphocytes # (1.0-4.8) k/uL Sodium (137-145) mmol/L Chloride 109 H (98-107) mmol/L Carbon Dioxide 20 L (22-30) mmol/L BUN 28 H (9-20) mg/dL Creatinine 2.06 H (0.66-1.25) mg/dL Glucose 122 H (74-99) mg/dL POC Glucose (mg/dL) 124 H (75-99) mg/dL Calcium 7.6 L (8.4-10.2) mg/dL AST 185 H (17-59) U/L ALT (21-72) U/L Creatine Kinase (55-170) U/L Total Protein 5.5 L (6.3-8.2) g/dL Albumin 3.1 L (3.5-5.0) g/dL 07/08/18 07/08/18 Range/Units 04:11 04:11 WBC (3.8-10.6) k/uL RBC 2.82 L (4.30-5.90) m/uL Hgb 9.0 L (13.0-17.5) gm/dL Hct 27.0 L (39.0-53.0) % Plt Count 134 L (150-450) k/uL Neutrophils # 8.6 H (1.3-7.7) k/uL Lymphocytes # 0.7 L (1.0-4.8) k/uL Sodium 136 L (137-145) mmol/L Chloride 111 H (98-107) mmol/L Carbon Dioxide 18 L (22-30) mmol/L BUN 36 H (9-20) mg/dL Creatinine 2.48 H (0.66-1.25) mg/dL Glucose (74-99) mg/dL POC Glucose (mg/dL) (75-99) mg/dL Calcium 7.7 L (8.4-10.2) mg/dL AST 518 H (17-59) U/L ALT 172 H (21-72) U/L Creatine Kinase 4406 H* (55-170) U/L Total Protein 5.3 L (6.3-8.2) g/dL Albumin 2.7 L (3.5-5.0) g/dL Microbiology - Last 24 Hours (Table) 07/07/18 14:49 Urine Culture - Preliminary Urine,Clean Catch
[2018-07-08] MEDS: LEVOFLOXACIN 500MG-D5W PMX 500 MG in DEXTROSE/WATER 1 100ML.BAG IVPB SCH (14:02)
--- NOTE | 2018-07-08 14:17 | FL ---
EXAMINATION TYPE: FL barium swallow w video DATE OF EXAM: 07/08/2018 COMPARISON: NONE HISTORY: Difficulty swallowing TECHNIQUE: Fluoroscopy. FINDINGS: Fluoroscopic guidance was provided for the procedure performed in conjunction with the [facility] pathology department. Please see complete report forthcoming from the Speech Pathology departmen t. Various consistencies from thin liquid to solids were administered. Fluoroscopy time 2 minutes 49 seconds Number of images: 0. Transient penetration is present with multiple swallowing tests with thin liquids. Chin tuck method d oes not improve this. Mild pooling within the vallecula. With swallowing there appear to be some reflux into the proximal cervical esophagus during the exam. This appears to pool within the piriform sinuses. Consider additional evaluation with esophagram. IMPRESSION: 1. Penetration without aspiration of thin liquids. Additional consistencies appeared normal. 2. Possible reflux in the proximal cervical esophagus. Consider esophagram for additional evaluation.
--- NOTE | 2018-07-08 16:47 | PN ---
PROGRESS NOTE DATE OF SERVICE: 07/08/2018 This 83-year-old gentleman who was admitted with pelvis fracture, multiple rib fractures is being closely monitored. Patient had hypotension possibly secondary to prerenal factors and dehydration. Patient was monitored in ICU with IV fluids. The patient has seen multiple consultants including surgery, pulmonology and cardiology. The 2D echo with Doppler was done yesterday which showed ejection fraction of 55 -60 percent and mild valvular abnormalities. The patient is still on IV intravenous pain medications because of severe pain. The patient had a second-degree AV block Mobitz type rhythm as well. The patient is not on any currently. The patient is being closely monitored in the ICU. PAST MEDICAL HISTORY: Reviewed. REVIEW OF SYSTEMS: CARDIOVASCULAR: No angina or palpitations. RESPIRATORY: As mentioned earlier. GI: As mentioned earlier. : No dysuria. NERVOUS SYSTEM: No numbness or weakness. CURRENT MEDICATIONS ARE: Reviewed and include: 1. Bogart 7.5 q.6h p.r.n. 2. DuoNeb q.i.d. and p.r.n. 3. Celexa 40 mg daily. 4. Colace 100 mg b.i.d. 5. Heparin subcu b.i.d. 6. Levaquin 500 mg. 7. Lidoderm. 8. Narcan. 9. Protonix. 10.Flomax. PHYSICAL EXAM: Patient is alert, oriented x3. Pulse is 62. Blood pressure 150/60, respiratory 14, temperature 98.8, pulse ox 98% on 5 L. HEENT: Conjunctivae are normal. NECK: No jugular venous distention. CARDIOVASCULAR: S1, S2 muffled. RESPIRATORY: Breath sounds diminished in the bases. A few scattered rhonchi and crackles. ABDOMEN: Soft, nontender. No mass palpable. Otherwise, minimal tenderness in the right lower chest present. LEGS: No edema, no swelling. Movements are painful. NERVOUS SYSTEM: Higher functions as mentioned. Moves all 4 limbs. Mild diffuse weakness. Lymphatics: No lymph nodes palpable in the neck, axillae or groin. Skin: No ulcer, no rash. No bleeding. LAB STUDIES: WBC 10.1, hemoglobin 9, sodium 130, potassium 4.8 and creatinine kinase 4406 and AST/ALT was noted. ASSESSMENT: 1. Fall and acute pelvic fracture right superior-inferior pubic rami with severe pain and gait dysfunction. 2. Acute rhabdomyolysis. 3. Hypertension, severe. Monitored in ICU, possibly secondary to dehydration, multifactorial. 4. Possible acute right-sided pneumonia possibly gram-negative. 5. Elevated troponin up to 1.10 indeterminate, myocardial infarction unlikely. 6. Fever, elevated WBC possible acute urinary tract infection present on admission not related to [place] catheter. 7. Increased creatinine with possible acute on chronic renal failure with chronic kidney disease stage 3 baseline. 8. Anemia, normocytic anemia of chronic disease. 9. History AST. 10.Gastroesophageal reflux disease. 11.Hypertension. 12.History of degenerative joint disease. 13.History of prostate disorder. 14.History of gout. 15.History of asbestos exposure. 16.History of right lung cancer. 17.History of adenoidectomy. 18.Major depression. 19.History of nicotine dependence. 20.NO CODE, NO CPR, NO VENT. RECOMMENDATIONS AND DISCUSSION: Recommend to continue current medication, continue to monitor. Symptomatic treatment. Otherwise at this time, continue with IV fluids. Monitor blood pressure closely. 2D echo noted and shows normal ejection fraction. Continue to monitor creatine kinase. PT/OT evaluation. Continue the pain medications. Also discussed at length with the patient as well as family at the bedside and currently I would recommend possible ECF rehab currently and we will monitor the creatinine also. Avoid nephrotoxic medications. Further recommendations to follow. MMSHER / ADELINAN: [id number] / JENNIFER
[2018-07-09] MEDS: MORPHINE SULFATE 2 MG/ML SYRINGE IVP PRN ×6 (01:08→22:33)
[2018-07-09 05:08] LABS: Basophils % (A) 0 %; Eosinophils # (A) 0.3 k/uL (0-0.7); Eosinophils % (A) 4 %; HGB 8.5 gm/dL (13.0-17.5); Lymphocytes # (A) 0.6 k/uL (1.0-4.8); Lymphocytes % (A) 7 %; MCH 31.2 pg (25.0-35.0); MCHC 32.6 g/dL (31.0-37.0); MCV 95.7 fL (80.0-100.0); Mean Platelet Volume 7.6; Monocytes # (A) 0.6 k/uL (0-1.0); Monocytes % (A) 8 %; Neutrophils # (A) 6.7 k/uL (1.3-7.7); Neutrophils % (A) 80 %; Platelet Count 145 k/uL (150-450); RBC 2.72 m/uL (4.30-5.90); WBC 8.4 k/uL (3.8-10.6)
[2018-07-09 05:29] LABS: Albumin 2.6 g/dL (3.5-5.0); Calcium 7.8 mg/dL (8.4-10.2); Magnesium 1.7 mg/dL (1.6-2.3); Phosphorus 2.7 mg/dL (2.5-4.5); Potassium 4.4 mmol/L (3.5-5.1); Total Bilirubin 0.7 mg/dL (0.2-1.3); Total Protein 5.1 g/dL (6.3-8.2)
[2018-07-09] MEDS: IPRATROPIUM-ALBUTEROL 3 ML NEB INHALATION SCH ×3 (06:51→19:29)
[2018-07-09] MEDS ORDERED: Magnesium Replacement Protocol 1 EACH MISC MISCELLANE PRN (07:30)
[2018-07-09] MEDS: SODIUM CHLORIDE 0.9% 1,000 ML IV SCH ×3 (07:31→22:34)
[2018-07-09] MEDS: LIDOCAINE 5% PATCH TOPICAL SCH (08:15)
[2018-07-09] MEDS: TAMSULOSIN 0.4 MG CAP.ER.24H PO SCH (08:16)
[2018-07-09] MEDS: PANTOPRAZOLE 40 MG TABLET PO SCH (08:16)
[2018-07-09] MEDS: APIXABAN 5 MG TAB PO SCH ×2 (08:16→20:50)
[2018-07-09] MEDS: DOCUSATE 100 MG CAP PO SCH ×2 (08:16→20:50)
[2018-07-09] MEDS: CITALOPRAM HYDROBROMIDE 20 MG TAB PO SCH (08:16)
[2018-07-09] MEDS: MAGNESIUM SULFATE-D5W PMX 1 GM in DEXTROSE/WATER 1 100ML.BAG IVPB SCH ×2 (08:16→11:32)
--- NOTE | 2018-07-09 10:22 | P.PN ---
<Jolie Samuel A - Last Filed: 07/09/18 10:13> Subjective Progress Note Date: 07/09/18 CHIEF COMPLAINT: Fall HISTORY OF PRESENT ILLNESS: Patient examined at the bedside. Patient reports pain is tolerable. Blood pressure has been stable. Patient continues to complain of dysphagia, which he states has been present for the past 2-3 years but is worse in the hospital. Scheduled for MBS today. PHYSICAL EXAM: VITAL SIGNS: Currently stable. GENERAL: Well-developed in no acute distress. HEENT: No sclera icterus. Extraocular movements grossly intact. Moist buccal mucosa. Head is atraumatic, normocephalic. Hears conversational speech. No nasal drainage. NECK: Supple without lymphadenopathy. CHEST: Non-labored respirations and equal bilateral excursions. CARDIOVASCULAR: Regular rate with regular rhythm. Palpable 2+ radial pulses. ABDOMEN: Soft. Nondistended. Nontender. MUSCULOSKELETAL: No clubbing, cyanosis or edema. NEUROLOGIC: No focal or lateralizing signs. Cranial nerves II through XII grossly intact. PSYCH: Appropriate affect. Alert and oriented to person, place and time. SKIN: Well perfused. Good skin turgor. Large amount of ecchymosis to right chest wall. ASSESSMENT: 1. Traumatic fall 2. Right-sided pubic ramus fracture 3. Nondisplaced fracture of the right lateral fourth through seventh rib 4. Acute rhabdomyolysis 5. Dysphagia PLAN: 1. Orthopedics, pulmonary, anesthesia, and medicine are on consult. Appreciate recommendations. 2. Pain control 3. Incentive spirometry 4. Patient scheduled for modified barium swallow this morning Nurse practitioner note has been reviewed by physician. Signing provider agrees with the documented findings, assessment, and plan of care. Objective - Vital Signs Vital signs: Vital Signs Temp 97.7 F 07/09/18 08:00 Pulse 60 07/09/18 08:00 Resp 20 07/09/18 08:00 BP 136/58 07/09/18 08:00 Pulse Ox 94 L 07/09/18 08:00 Intake & Output 07/08/18 07/09/18 07/09/18 18:59 06:59 18:59 Intake Total 600 650 Output Total 265 575 250 Balance 335 -575 400 Weight 84.9 kg Intake: IV 600 150 Sodium Chloride 0.9% 1, 600 150 000 ml @ 100 mls/hr IV . Q10H ROM Rx#:[id number] Oral 500 Output: Urine 265 575 250 Other: Voiding Method Indwelling Catheter Indwelling Catheter - Labs CBC & Chem 7: 07/09/18 04:43 07/09/18 04:43 Labs: Abnormal Lab Results - Last 24 Hours (Table) 07/09/18 07/09/18 Range/Units 04:43 04:43 RBC 2.72 L (4.30-5.90) m/uL Hgb 8.5 L (13.0-17.5) gm/dL Hct 26.0 L (39.0-53.0) % Plt Count 145 L (150-450) k/uL Lymphocytes # 0.6 L (1.0-4.8) k/uL Sodium 136 L (137-145) mmol/L Chloride 111 H (98-107) mmol/L Carbon Dioxide 19 L (22-30) mmol/L BUN 28 H (9-20) mg/dL Creatinine 1.51 H (0.66-1.25) mg/dL Calcium 7.8 L (8.4-10.2) mg/dL AST 164 H (17-59) U/L ALT 134 H (21-72) U/L Creatine Kinase 941 H (55-170) U/L Total Protein 5.1 L (6.3-8.2) g/dL Albumin 2.6 L (3.5-5.0) g/dL Microbiology - Last 24 Hours (Table) 07/07/18 14:49 Urine Culture - Final Urine,Clean Catch Aerococcus urinae 07/07/18 15:07 Blood Culture - Preliminary Blood No Growth after 24 hours <Ronny Martinez - Last Filed: 07/09/18 14:09> Subjective As above. Patient doing better today. Pain is controlled. Tolerating diet after barium swallow earlier today. Continue analgesics. We'll sign off. Please call if needed. Objective - Vital Signs Vital signs: Vital Signs Temp 98.0 F 07/09/18 09:00 Pulse 63 07/09/18 09:00 Resp 22 07/09/18 09:00 BP 124/53 07/09/18 09:00 Pulse Ox 92 L 07/09/18 09:00 Intake & Output 07/08/18 07/09/18 07/09/18 18:59 06:59 18:59 Intake Total 600 650 Output Total 265 575 250 Balance 335 -575 400 Weight 84.9 kg Intake: IV 600 150 Sodium Chloride 0.9% 1, 600 150 000 ml @ 100 mls/hr IV . Q10H [facility] Rx#:[id number] Oral 500 Output: Urine 265 575 250 Other: Voiding Method Indwelling Catheter Indwelling Catheter Indwelling Catheter - Labs CBC & Chem 7: 07/09/18 04:43 07/09/18 04:43 Labs: Abnormal Lab Results - Last 24 Hours (Table) 07/09/18 07/09/18 Range/Units 04:43 04:43 RBC 2.72 L (4.30-5.90) m/uL Hgb 8.5 L (13.0-17.5) gm/dL Hct 26.0 L (39.0-53.0) % Plt Count 145 L (150-450) k/uL Lymphocytes # 0.6 L (1.0-4.8) k/uL Sodium 136 L (137-145) mmol/L Chloride 111 H (98-107) mmol/L Carbon Dioxide 19 L (22-30) mmol/L BUN 28 H (9-20) mg/dL Creatinine 1.51 H (0.66-1.25) mg/dL Calcium 7.8 L (8.4-10.2) mg/dL AST 164 H (17-59) U/L ALT 134 H (21-72) U/L Creatine Kinase 941 H (55-170) U/L Total Protein 5.1 L (6.3-8.2) g/dL Albumin 2.6 L (3.5-5.0) g/dL Microbiology - Last 24 Hours (Table) 07/07/18 14:49 Urine Culture - Final Urine,Clean Catch Aerococcus urinae 07/07/18 15:07 Blood Culture - Preliminary Blood No Growth after 24 hours
--- NOTE | 2018-07-09 10:24 | PN ---
PROGRESS NOTE Mr. Kimble is an 83-year-old male who presented after a fall. He is complaining of hip discomfort at this time, but denies any symptoms of chest pain. He had evidence of right-sided rib fracture as well as evidence of rhabdomyolysis. On the monitor, he is alternating between sinus mechanism with second-degree AV block Mobitz type 1 and first- degree AV block and episode of atrial fibrillation. He denies any chest pain. His breathing has been stable. He denies any dizziness or palpitation. He denies any nausea. He was found to have a mass on his CAT scan that was suspicious for bronchogenic carcinoma. He continues to be at this time on citalopram, heparin subcu, lidocaine patch, Protonix. PHYSICAL EXAMINATION: Blood pressure 134/50 with a heart rate in the 70s. LUNGS: Clear anteriorly. HEART: Irregular regular, S1, S2. No S3. No rub appreciated with a systolic murmur. ABDOMEN: Soft. Mild tenderness. Positive bowel sounds. EXTREMITIES: No edema. LAB DATA: Revealed a BUN and creatinine 28 and 1.51. CK of 941. His liver function tests have improved. Potassium 4.4, hemoglobin of 8.5. His TSH is 2.410. His echocardiogram that was performed upon admission has revealed a preserved systolic function with no significant valvular disease. IMPRESSION: 1. Fall with rhabdomyolysis and fracture of the right ribs. 2. Paroxysmal atrial fibrillation with episode of second-degree AV block, Mobitz type 1. 3. Evidence of lung mass, possible bronchogenic carcinoma. 4. Renal failure, improving. 5. Abnormal liver function test, improving. RECOMMENDATION: From the cardiac standpoint because of the recurrent atrial fibrillation, I will initiate treatment with anticoagulant. Continue to follow his renal function and depending on his progress, further recommendation made. If the patient shows sinus severe bradyarrhythmia, then he may be a candidate for permanent pacemaker implantation. MMODL / IJN: [id number] /
[2018-07-09] MEDS ORDERED: TETRAHYDROZOLINE 0.05% OPHTH DROPS 15 ML BTL BOTH EYES PRN (11:06)
--- NOTE | 2018-07-09 15:08 | P.PN ---
Subjective Progress Note Date: 07/09/18 Principal diagnosis: Status post fall and multiple right-sided rib fractures, acute rhabdomyolysis, hypotension and second degree AV block Mobitz type I his 83-year-old white male patient that follows at the [facility], who was brought to the emergency department on 07/06/2018 after sustaining a mechanical fall, patient tripped on a curb and fell onto his right hip. Afterwards patient had difficulty bearing weight, was unable to ambulate, and also had some discomfort in the right anterior ribs and abdomen. He didn't strike his head in the fall, but denied any loss of consciousness. No altered mentation, and no neurological deficits. X-ray of the hip and pelvis revealed right-sided pubic ramus fracture. CT of the chest, abdomen and pelvis showed moderate centrilobular emphysema, areas of interstitial scarring, and a suspicious right lower lobe mass measuring 5.2 cm with an enlarged 2.2 cm subcarinal lymph node. Subtle nondisplaced fractures of the right lateral fourth through seventh ribs. A lobulated 4.7 cm left kidney cyst. 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 CT of the head and cervical spine showed no acute fracture and no acute intracranial abnormality. EKG showed sinus rhythm with right bundle branch block, but no acute ischemic changes. 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 No past medical history of cancer. Denies any recent weight loss, appetite loss, no night sweats, no hemoptysis, no chest wall tenderness. 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 Patient's on is at the bedside, and he states patient has been experiencing falls at home , does ambulate with a walker. Currently patient is resting in bed, is having right-sided chest wall discomfort, worse with repositioning, but in no acute distress, pulse ox is 92% on 2 L per nasal cannula, is receiving pain medications, and has been noted to be hypotensive likely related to the effects of the narcotic analgesic. Afebrile. Lung sounds are diminished. No cough, no chest congestion. Patient's total CK was elevated at 2401, and has actually been trending up currently at 5529. Positive troponins of 0.218, 1.110, and 1.660, cardiology is following. Blood work showed a white blood cell count of 13.4, hemoglobin of 10.7, electrolytes were unremarkable, BUN was 28 and creatinine was 2.0 on admission. Plasma lactic acid is 1.0. Serum alcohol was less than 10, urine drug screen was positive for opiates, patient has a prescription for [place]. Were consulted in regards to the right lower lobe lung mass subcarinal adenopathy, suspicious for lung cancer. Patient was reevaluated today on 07/08/2018. Late afternoon yesterday, patient was transferred to the intensive care unit mostly because of persistent hypotension, and bradycardia arrhythmia with second degree AV block, Mobitz type I. His hypotension was felt to be multifactorial, mostly related to blood pressure medications, narcotics for pain control, and possibly relative dehydration. Patient was given fluids did not improve much, hence he was placed overnight on a small dose of norepinephrine. This morning he is off norepinephrine, blood pressure is much better controlled, and the patient is feeling better. He is complaining however of some difficulty swallowing and I recommended a modified barium swallow, patient is having difficulty swallowing solid food and liquids. Pain seems to be better controlled from his rib fractures. Labs were reviewed relatively normal CBC hemoglobin however is 9 electrolytes are normal BUN is up to 36 creatinine is 2.48. CPK which was initially elevated secondary to fall is coming down to 4406 today. Patient is still receiving fluids at 100 mL per hour. Urine output is reasonable without any diuretics at 40 mL per hour. Chest x-ray was reviewed, right lower lobe mass was again noted. And this was also noted on the CT of the chest. Reevaluated today on 07/09/2018, patient remains in the intensive care unit, but he is basically an overflow from selective. No further episodes of hypotension , no further episodes of bradycardia,he does have paroxysmal atrial fibrillation with episodes of second-degree AV block, Mobitz type I. Patient had videoscopic fluoroscopy for evaluation of dysphagia, and he was noted to havepenetration without aspiration of thin liquids however there was a significant reflux in proximal cervical esophagus. And the radiologist recommended esophagogram or evaluation by gastroenterology. Will consult gastroenterology for further evaluation of this issue.apparently his dysphagia has been a chronic issue. Labs today showed a relatively normal electrolytes renal functioning is improving creatinine is down to 1.51 from 2.48 yesterday. WBC count is 8.4 hemoglobin is 8.5, liver enzymes are improving. CPK is down to 941 Objective - Vital Signs Vital signs: Vital Signs Temp 97.9 F 07/09/18 12:00 Pulse 65 07/09/18 12:00 Resp 19 07/09/18 12:00 BP 123/57 07/09/18 12:00 Pulse Ox 95 07/09/18 12:00 Intake & Output 07/08/18 07/09/18 07/09/18 18:59 06:59 18:59 Intake Total 600 650 Output Total 265 575 250 Balance 335 -575 400 Weight 84.9 kg Intake: IV 600 150 Sodium Chloride 0.9% 1, 600 150 000 ml @ 100 mls/hr IV . Q10H ROM Rx#:[id number] Oral 500 Output: Urine 265 575 250 Other: Voiding Method Indwelling Catheter Indwelling Catheter Indwelling Catheter - Exam Physical Exam revealed 83-year-old white male, comfortable, in no distress.still complaining of dysphagia to liquids and solids. Head: Atraumatic normocephalic HEENT:[Neck is supple.] [No neck masses.] [No thyromegaly.] [No JVD.] PERRLA, EOMI, no icterus. Chest: [Clear throughout, no crackles, no rhonchi, no wheezes.] Tenderness remains unchanged over the anterior chest wall. Cardiac Exam: [Irregular rhythm Normal S1 and S2, no S3 gallop, 2/6 systolic murmur thought the precordium..] Abdomen: [Soft, nontender, no megaly, no rebound, no guarding, normal bowel sounds. Extremities: [No clubbing, no edema, no cyanosis.] Good pulses bilaterally Neurological Exam: [No focal neurologic deficit.] Alert oriented 3. Psychiatric: Normal mood, affect and mental status exam. Skin: No rashes. - Labs CBC & Chem 7: 07/09/18 04:43 07/09/18 04:43 Labs: Abnormal Lab Results - Last 24 Hours (Table) 07/09/18 07/09/18 Range/Units 04:43 04:43 RBC 2.72 L (4.30-5.90) m/uL Hgb 8.5 L (13.0-17.5) gm/dL Hct 26.0 L (39.0-53.0) % Plt Count 145 L (150-450) k/uL Lymphocytes # 0.6 L (1.0-4.8) k/uL Sodium 136 L (137-145) mmol/L Chloride 111 H (98-107) mmol/L Carbon Dioxide 19 L (22-30) mmol/L BUN 28 H (9-20) mg/dL Creatinine 1.51 H (0.66-1.25) mg/dL Calcium 7.8 L (8.4-10.2) mg/dL AST 164 H (17-59) U/L ALT 134 H (21-72) U/L Creatine Kinase 941 H (55-170) U/L Total Protein 5.1 L (6.3-8.2) g/dL Albumin 2.6 L (3.5-5.0) g/dL Microbiology - Last 24 Hours (Table) 07/07/18 14:49 Urine Culture - Final Urine,Clean Catch Aerococcus urinae 07/07/18 15:07 Blood Culture - Preliminary Blood No Growth after 24 hours Assessment and Plan Assessment: Impression: 1 hypotension secondary to blood pressure medications which are presently on hold, narcotics, and the dose has been cut down, and relative dehydration.resolved. 2 multiple rib fractures secondary to fall, fourth through seventh ribs on the right side. 3 acute pubic rami fracture secondary to fall.being followed by orthopedics 4 acute rhabdomyolysis and acute kidney injury related to rhabdomyolysis and also related to hypotension.improving with improved CPK level and improved creatinine/renal profile today. 5 right lung mass strongly suspicious for bronchogenic carcinoma, this will need to be addressed on an outpatient basis, may eventually consider CT-guided needle biopsy by interventional radiology. The mass seems to be abutting the right pleural surface. It is associated with subcarinal lymphadenopathy. 6 COPD, currently stable and inactive. 7 history of depression 8 chronic back pain 9 [id number] smoker, quit in 1979. 10 elevated troponin, nonspecific, being addressed by cardiology on the case. 11 dysphagia, Will arrange for GI consultation since the patient has abnormal modified barium swallow. Recommendation: continue present treatment plan, continue IV fluids, monitor blood pressure closely and may have to restart his blood pressure medications if necessary. GI consultation. Continue to monitor renal profile until back to normal. Transfer out of the ICU to a monitor bed on selective once a bed is available. Eventual workup and diagnosis of his right lung mass could be done on outpatient basis. Patient may have tissue diagnosis either by CT-guided needle biopsy by interventional radiology or bronchoscopy and transbronchial biopsy of the right lower lobe mass.long-term prognosis is definitely poor and guarded, patient clearly has multiple complex issues as noted above. We'll continue to follow Time with Patient: Less than 30
[2018-07-09] MEDS: LEVOFLOXACIN 250MG-D5W PMX 250 MG in DEXTROSE/WATER 1 50ML.BAG IVPB SCH (15:37)
--- NOTE | 2018-07-09 16:06 | PN ---
PROGRESS NOTE DATE OF SERVICE: 07/09/2018 This 83-year-old gentleman was admitted with pelvis fracture, also had multiple rib fractures also. The patient also complaining of severe pain. Patient also had rhabdomyolysis. Patient is on IV fluids. Patient also had right-sided pneumonia. Patient on broad spectrum IV antibiotics. PT, OT evaluating the patient. The pain is slightly increased compared to yesterday. The patient being closely monitored in ICU. PAST MEDICAL HISTORY: Reviewed. REVIEW OF SYSTEMS: CARDIOVASCULAR SYSTEM: As mentioned earlier. RESPIRATORY: As mentioned earlier. GI no nausea or vomiting. : No dysuria. NERVOUS SYSTEM: No numbness or weakness. CURRENT MEDICATIONS: Reviewed and include: 1. [place] 7.5 q.6h p.r.n. 2. DuoNeb q.i.d. and p.r.n. 3. Eliquis 5 mg p.o. b.i.d. 4. Celexa 40 mg p.o. daily. 5. Colace 100 mg p.o. b.i.d. 6. Levaquin 250 mg daily. MMODL / IJN: [id number] /
--- NOTE | 2018-07-09 17:33 | PN ---
PROGRESS NOTE ADDENDUM: DATE OF SERVICE: 07/09/2018 MEDICATIONS: 1. Levaquin 500 mg daily. 2. Lidoderm 1 patch daily. 3. Magnesium protocol. 4. Morphine protocol. 5. Narcan. 6. Zofran. 7. Protonix. 8. Flomax 0.4 daily. 9. Visine eyedrops. PHYSICAL EXAMINATION: Patient is alert, oriented x3, pulse 65, blood pressure 122/59, respiration 19, temperature 97.2, pulse ox 94% on 6 L. HEENT: Conjunctivae normal. NECK: No jugular venous distention. CARDIOVASCULAR: S1, S2 muffled. RESPIRATORY: Breath sounds diminished in the bases. A few scattered rhonchi and crackles. Abdomen: Soft, mild diffuse distention. Nontender. No mass palpable. Minimal tenderness in the right lower chest present. Abdomen is soft, nontender. No mass palpable. Legs no edema. No swelling. Movements are painful. Nervous system: Higher functions as mentioned earlier. Moves all four extremities. No focal motor or sensory deficits. Minimal incoordination present. ASSESSMENT: 1. Fall and acute pelvic fracture, right superior inferior pubic rami with severe pain and gait dysfunction. 2. Acute rhabdomyolysis. 3. Paroxysmal atrial fibrillation. 4. Severe hypotension monitored in ICU, possibly secondary to dehydration, multifactorial. 5. Possible acute right-sided pneumonia possibly gram-negative. 6. Elevated troponin up to 1.10 indeterminate, myocardial infarction unlikely per Cardiology. 7. Fever, elevated WBC, possible acute urinary tract infection present on admission not related to [place] catheter. 8. Increased creatinine with possible acute renal failure with chronic renal failure stage 3 baseline. 9. Anemia, normocytic anemia of chronic disease. 10.Increased AST. 11.Gastroesophageal reflux disease. 12.Hypertension. 13.History of degenerative joint disease. 14.History of prostate disorder. 15.History of gout. 16.History of asbestos exposure. 17.History of right lung cancer. 18.History of adenoidectomy. 19.Major depression. 20.History of nicotine dependence. 21.NO CODE, NO CPR, NO VENT. RECOMMENDATIONS AND DISCUSSION: I recommend to continue current medications, management and symptomatic treatment. Otherwise, continue the pain medications, PT/OT evaluation. Increase ambulation. Possible ECF rehab. Video fluoroscopic swallow test was done. Surgery is following the patient with multiple consultants. The patient also has paroxysmal atrial fibrillation, patient on Cardizem drip at this time. Continue the current medications. Patient is anticoagulated. Creatinine is improving and the labs are reviewed. Once again, the prognosis guarded. I had a detailed discussion with the son at the bedside. Further recommendations to follow. SHOBHA / ADELINAN: [id number] /
[2018-07-10] MEDS: MORPHINE SULFATE 2 MG/ML SYRINGE IVP PRN (03:35)
[2018-07-10] MEDS: PANTOPRAZOLE 40 MG TABLET PO SCH (06:42)
[2018-07-10 06:47] LABS: Basophils % (A) 0 %; Eosinophils # (A) 0.3 k/uL (0-0.7); Eosinophils % (A) 3 %; HCT 26.6 % (39.0-53.0); HGB 8.6 gm/dL (13.0-17.5); Lymphocytes # (A) 0.6 k/uL (1.0-4.8); Lymphocytes % (A) 7 %; MCH 30.8 pg (25.0-35.0); MCHC 32.6 g/dL (31.0-37.0); MCV 94.6 fL (80.0-100.0); Mean Platelet Volume 7.7; Monocytes # (A) 0.8 k/uL (0-1.0); Monocytes % (A) 9 %; Neutrophils # (A) 6.6 k/uL (1.3-7.7); Neutrophils % (A) 77 %; Platelet Count 176 k/uL (150-450); RBC 2.81 m/uL (4.30-5.90); RDW 14.1 % (11.5-15.5); WBC 8.5 k/uL (3.8-10.6)
[2018-07-10] MEDS: HYDROcodone/APAP 7.5-325MG 1 EACH TAB PO PRN ×4 (06:49→22:49)
[2018-07-10 07:03] LABS: Albumin 2.6 g/dL (3.5-5.0); Potassium 4.3 mmol/L (3.5-5.1); Total Bilirubin 0.7 mg/dL (0.2-1.3); Total Protein 5.1 g/dL (6.3-8.2)
[2018-07-10] MEDS: IPRATROPIUM-ALBUTEROL 3 ML NEB INHALATION SCH ×3 (08:02→19:13)
[2018-07-10] MEDS: LIDOCAINE 5% PATCH TOPICAL SCH (09:01)
[2018-07-10] MEDS: DOCUSATE 100 MG CAP PO SCH ×2 (09:03→21:19)
[2018-07-10] MEDS: APIXABAN 5 MG TAB PO SCH ×2 (09:03→21:19)
[2018-07-10] MEDS: TAMSULOSIN 0.4 MG CAP.ER.24H PO SCH (09:03)
[2018-07-10] MEDS: CITALOPRAM HYDROBROMIDE 20 MG TAB PO SCH (09:03)
--- NOTE | 2018-07-10 10:49 | P.PN ---
Subjective Progress Note Date: 07/10/18 This is an 83-year-old gentleman with past medical history significant for hypertension, hyperlipidemia, GERD, depression, prior history of smoking, emphysema, who presented to the hospital after experiencing a fall. According to the patient, he tripped backwards over the curb, actually crawled into the house because he could not get himself up. He apparently sat himself in a chair and stayed there until the next morning when he ultimately called his son. Patient does state he's been having some falls at home, he does state that he gets dizzy prior to falling and becomes extremely weak. Denies losing consciousness. X-ray of the pelvis performed which revealed a right sided pubic ramus fracture. CT of the chest and abdomen was also completed which showed segmental angulated fractures of the right inferior pubic ramus, nondisplaced fracture of the lateral aspect of the right superior pubic ramus and additional nondisplaced own sacral fracture. Subtle nondisplaced fractures of the right lateral fourth through seventh ribs. Findings highly suspicious for 5.2 cm right lower lobe lung cancer with metastatic subcarinal lymphadenopathy. Ambulated 4.7 cm lesion in the left kidney. COPD with moderate emphysema, 3 cm AAA. Blood pressure 118/50 with a heart rate in the 70s, temperature 99.1, 95% on 2 L of oxygen. White blood cell count 13.4, hemoglobin 10.7, platelet count 139. Sodium on admission 139, potassium 4.7, BUN 28, creatinine 2.0, total bilirubin 1.7, AST 80, ALT 20, CKs , 2401, 4895, 5529. MB 13.1, 22.1, 30.0. Troponin 0.21, 1.1, 1.6. Urine drug screen positive for opiates. 07/10/2018 Patient seen and examined this morning, blood pressure and heart rate remaining stable, 96% on 4 L of oxygen. White blood cell count is normal, hemoglobin 8.6 , platelet count 176. Sodium 138, potassium 4.3, BUN 18, creatinine 1.2. LFTs improving. Objective - Vital Signs Vital signs: Vital Signs Temp 97.8 F 07/10/18 08:50 Pulse 76 07/10/18 08:50 Resp 20 07/10/18 08:50 BP 140/64 07/10/18 08:50 Pulse Ox 96 07/10/18 08:50 Intake & Output 07/09/18 07/10/18 07/10/18 18:59 06:59 18:59 Intake Total 1950 400 Output Total 650 300 Balance 1300 -300 400 Weight 84.8 kg Intake: IV 950 400 Sodium Chloride 0.9% 1, 950 400 000 ml @ 50 mls/hr IV . Q20H ROM Rx#:[id number] Intake, IV Titration 200 Amount Magnesium Sulfate-D5w Pmx 200 1 gm In Dextrose/Water 1 100ml.bag @ 100 mls/hr IVPB Q1H ROM Rx#: [id number] Oral 800 Output: Urine 650 300 Other: Voiding Method Indwelling Catheter Indwelling Catheter Indwelling Catheter - Exam Physical Exam revealed 83-year-old white male, comfortable, in no distress.still complaining of dysphagia to liquids and solids. Head: Atraumatic normocephalic HEENT:[Neck is supple.] [No neck masses.] [No thyromegaly.] [No JVD.] PERRLA, EOMI, no icterus. Chest: [Clear throughout, no crackles, no rhonchi, no wheezes.] Tenderness remains unchanged over the anterior chest wall. Cardiac Exam: [Irregular rhythm Normal S1 and S2, no S3 gallop, 2/6 systolic murmur thought the precordium..] Abdomen: [Soft, nontender, no megaly, no rebound, no guarding, normal bowel sounds. Extremities: [No clubbing, no edema, no cyanosis.] Good pulses bilaterally Neurological Exam: [No focal neurologic deficit.] Alert oriented 3. Psychiatric: Normal mood, affect and mental status exam. Skin: No rashes. - Labs CBC & Chem 7: 07/10/18 06:11 07/10/18 06:11 Labs: Abnormal Lab Results - Last 24 Hours (Table) 07/10/18 07/10/18 Range/Units 06:11 06:11 RBC 2.81 L (4.30-5.90) m/uL Hgb 8.6 L (13.0-17.5) gm/dL Hct 26.6 L (39.0-53.0) % Lymphocytes # 0.6 L (1.0-4.8) k/uL Chloride 112 H (98-107) mmol/L Carbon Dioxide 21 L (22-30) mmol/L Calcium 8.0 L (8.4-10.2) mg/dL AST 86 H (17-59) U/L ALT 103 H (21-72) U/L Creatine Kinase 331 H (55-170) U/L Total Protein 5.1 L (6.3-8.2) g/dL Albumin 2.6 L (3.5-5.0) g/dL Microbiology - Last 24 Hours (Table) 07/07/18 15:07 Blood Culture - Preliminary Blood No Growth after 48 hours Assessment and Plan Plan: Assessment and plan #1 fall with evidence of acute pelvic fractures #2 acute rhabdomyolysis #3 anemia of chronic disease #4 hypertension #5 hyperlipidemia #6 acute UTI #7 depression #8 CT of the chest highly suspicious for 5.2 cm right lower lobe lung cancer with metastatic subcarinal lymphadenopathy. #9 acute on chronic renal insufficiency Plan From cardiology's perspective we will continue anticoagulation with Eliquis. Continue to monitor for any significant bradycardia arrhythmias, patient may be a candidate for implantation of a permanent pacemaker. DNP note has been reviewed, I agree with a documented findings and plan of care. Patient was seen and examined.
--- NOTE | 2018-07-10 12:42 | P.PN ---
Subjective Progress Note Date: 07/10/18 Principal diagnosis: Status post fall and multiple right-sided rib fractures, acute rhabdomyolosis, hypotension secondary to AV block, Mobitz type I. his 83-year-old white male patient that follows at the [facility], who was brought to the emergency department on 07/06/2018 after sustaining a mechanical fall, patient tripped on a curb and fell onto his right hip. Afterwards patient had difficulty bearing weight, was unable to ambulate, and also had some discomfort in the right anterior ribs and abdomen. He didn't strike his head in the fall, but denied any loss of consciousness. No altered mentation, and no neurological deficits. X-ray of the hip and pelvis revealed right-sided pubic ramus fracture. CT of the chest, abdomen and pelvis showed moderate centrilobular emphysema, areas of interstitial scarring, and a suspicious right lower lobe mass measuring 5.2 cm with an enlarged 2.2 cm subcarinal lymph node. Subtle nondisplaced fractures of the right lateral fourth through seventh ribs. A lobulated 4.7 cm left kidney cyst. 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 CT of the head and cervical spine showed no acute fracture and no acute intracranial abnormality. EKG showed sinus rhythm with right bundle branch block, but no acute ischemic changes. 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 No past medical history of cancer. Denies any recent weight loss, appetite loss, no night sweats, no hemoptysis, no chest wall tenderness. Other medical history includes hypertension, hyperlipidemia, chronic kidney disease, patient used to follow with a sleep scientist, past history of EtOH abuse currently in remission, chronic back pain, GERD/reflux, depression. Patient's on is at the bedside, and he states patient has been experiencing falls at home , does ambulate with a walker. Currently patient is resting in bed, is having right-sided chest wall discomfort, worse with repositioning, but in no acute distress, pulse ox is 92% on 2 L per nasal cannula, is receiving pain medications, and has been noted to be hypotensive likely related to the effects of the narcotic analgesic. Afebrile. Lung sounds are diminished. No cough, no chest congestion. Patient's total CK was elevated at 2401, and has actually been trending up currently at 5529. Positive troponins of 0.218, 1.110, and 1.660, cardiology is following. Blood work showed a white blood cell count of 13.4, hemoglobin of 10.7, electrolytes were unremarkable, BUN was 28 and creatinine was 2.0 on admission. Plasma lactic acid is 1.0. Serum alcohol was less than 10, urine drug screen was positive for opiates, patient has a prescription for [place]. Were consulted in regards to the right lower lobe lung mass subcarinal adenopathy, suspicious for lung cancer. Patient was reevaluated today on 07/08/2018. Late afternoon yesterday, patient was transferred to the intensive care unit mostly because of persistent hypotension, and bradycardia arrhythmia with second degree AV block, Mobitz type I. His hypotension was felt to be multifactorial, mostly related to blood pressure medications, narcotics for pain control, and possibly relative dehydration. Patient was given fluids did not improve much, hence he was placed overnight on a small dose of norepinephrine. This morning he is off norepinephrine, blood pressure is much better controlled, and the patient is feeling better. He is complaining however of some difficulty swallowing and I recommended a modified barium swallow, patient is having difficulty swallowing solid food and liquids. Pain seems to be better controlled from his rib fractures. Labs were reviewed relatively normal CBC hemoglobin however is 9 electrolytes are normal BUN is up to 36 creatinine is 2.48. CPK which was initially elevated secondary to fall is coming down to 4406 today. Patient is still receiving fluids at 100 mL per hour. Urine output is reasonable without any diuretics at 40 mL per hour. Chest x-ray was reviewed, right lower lobe mass was again noted. And this was also noted on the CT of the chest. Reevaluated today on 07/09/2018, patient remains in the intensive care unit, but he is basically an overflow from selective. No further episodes of hypotension , no further episodes of bradycardia,he does have paroxysmal atrial fibrillation with episodes of second-degree AV block, Mobitz type I. Patient had videoscopic fluoroscopy for evaluation of dysphagia, and he was noted to havepenetration without aspiration of thin liquids however there was a significant reflux in proximal cervical esophagus. And the radiologist recommended esophagogram or evaluation by gastroenterology. Will consult gastroenterology for further evaluation of this issue.apparently his dysphagia has been a chronic issue. Labs today showed a relatively normal electrolytes renal functioning is improving creatinine is down to 1.51 from 2.48 yesterday. WBC count is 8.4 hemoglobin is 8.5, liver enzymes are improving. CPK is down to 941 The patient is seen today 07/10/2018 in follow-up on the selective care unit. He is awake and alert in no acute distress. He is maintaining good O2 saturations in the 90s on 4 L/m per nasal cannula. He is afebrile. Hemodynamically stable. White count 8.5. Hemoglobin 8.6. Creatinine 1.20. Creatinine kinase down to 331. AST 86, ALT 103. He has been initiated on Eliquis per cardiology for paroxysmal atrial fibrillation. Continue to monitor heart rhythm. Objective - Vital Signs Vital signs: Vital Signs Temp 97.8 F 07/10/18 08:50 Pulse 76 07/10/18 08:50 Resp 20 07/10/18 08:50 BP 140/64 07/10/18 08:50 Pulse Ox 96 07/10/18 08:50 Intake & Output 07/09/18 07/10/18 07/10/18 18:59 06:59 18:59 Intake Total 1950 640 Output Total 650 300 Balance 1300 -300 640 Weight 84.8 kg Intake: IV 950 400 Sodium Chloride 0.9% 1, 950 400 000 ml @ 50 mls/hr IV . Q20H [facility] Rx#:[id number] Intake, IV Titration 200 Amount Magnesium Sulfate-D5w Pmx 200 1 gm In Dextrose/Water 1 100ml.bag @ 100 mls/hr IVPB Q1H ROM Rx#: [id number] Oral 800 240 Output: Urine 650 300 Other: Voiding Method Indwelling Catheter Indwelling Catheter Indwelling Catheter - Exam GENERAL EXAM: Alert, active, fairly comfortable in no apparent distress. On 4 L nasal cannula HEAD: Normocephalic. EYES: Normal reaction of pupils, equal size. NOSE: Clear with pink turbinates. THROAT: No erythema or exudates. NECK: No masses, no JVD. CHEST: No chest wall deformity. Tenderness to palpation. LUNGS: Equal air entry with no crackles, wheeze, rhonchi or dullness. CVS: S1 and S2 normal with an audible murmur, irregular rhythm. ABDOMEN: No hepatosplenomegaly, normal bowel sounds, no guarding or rigidity. SPINE: No scoliosis or deformity SKIN: No rashes CENTRAL NERVOUS SYSTEM: No focal deficits, tone is normal in all 4 extremities. EXTREMITIES: There is no peripheral edema. No clubbing, no cyanosis. Peripheral pulses are intact. - Labs CBC & Chem 7: 07/10/18 06:11 07/10/18 06:11 Labs: Abnormal Lab Results - Last 24 Hours (Table) 07/10/18 07/10/18 Range/Units 06:11 06:11 RBC 2.81 L (4.30-5.90) m/uL Hgb 8.6 L (13.0-17.5) gm/dL Hct 26.6 L (39.0-53.0) % Lymphocytes # 0.6 L (1.0-4.8) k/uL Chloride 112 H (98-107) mmol/L Carbon Dioxide 21 L (22-30) mmol/L Calcium 8.0 L (8.4-10.2) mg/dL AST 86 H (17-59) U/L ALT 103 H (21-72) U/L Creatine Kinase 331 H (55-170) U/L Total Protein 5.1 L (6.3-8.2) g/dL Albumin 2.6 L (3.5-5.0) g/dL Microbiology - Last 24 Hours (Table) 07/07/18 15:07 Blood Culture - Preliminary Blood No Growth after 48 hours Assessment and Plan Assessment: Impression: 1 hypotension secondary to blood pressure medications which are presently on hold, narcotics, and the dose has been cut down, and relative dehydration. resolved. 2 multiple rib fractures secondary to fall, fourth through seventh ribs on the right side. 3 acute pubic rami fracture secondary to fall. being followed by orthopedics 4 acute rhabdomyolysis and acute kidney injury related to rhabdomyolysis and also related to hypotension.improving with improved CPK level and improved creatinine/renal profile today. 5 right lung mass strongly suspicious for bronchogenic carcinoma, this will need to be addressed on an outpatient basis, may eventually consider CT-guided needle biopsy by interventional radiology. The mass seems to be abutting the right pleural surface. It is associated with subcarinal lymphadenopathy. 6 COPD, currently stable and inactive. 7 history of depression 8 chronic back pain 9 [id number] smoker, quit in 1979. 10 elevated troponin, nonspecific, being addressed by cardiology on the case. 11 dysphagia, Will arrange for GI consultation since the patient has abnormal modified barium swallow. Recommendation: The patient was seen and evaluated by Dr. Rosenberg. He is improving from the pulmonary standpoint. We'll continue to titrate down the FiO2 as tolerated. Continue bronchodilators. He has been initiated on Eliquis per cardiology. He is again informed of the need for workup of the right lung mass. CT-guided FNA versus bronchial biopsy which will occur in the outpatient setting once he is recovered from this initial fall. Continue to monitor heart rhythm. We'll continue to follow. I, the cosigning physician, performed a history & physical examination of the patient. Lungs sounds with some crackles in the right lung base. Maintaining good O2 saturations in the 90s on 4 L/m per nasal cannula. I discussed the assessment and plan of care with my nurse practitioner, Cassidy Rincon. I attest to the above note as dictated by her.
[2018-07-10] MEDS ORDERED: BISACODYL 5 MG TABLET.DR PO PRN (14:56)
[2018-07-10] MEDS: LEVOFLOXACIN 250MG-D5W PMX 250 MG in DEXTROSE/WATER 1 50ML.BAG IVPB SCH (15:25)
[2018-07-10] MEDS: SODIUM CHLORIDE 0.9% 1,000 ML IV SCH (15:25)
--- NOTE | 2018-07-10 19:22 | XR ---
EXAMINATION TYPE: XR abdomen acute w cxr DATE OF EXAM: 07/10/2018 COMPARISON: NONE HISTORY: Abdominal pain TECHNIQUE: Supine, upright, and left side down lateral decubitus views of the abdomen are obtained. FINDINGS: There is some mild blunting of the costophrenic angles and more on the right side. There is no heart failure. There is coarsening of interstitial markings. There is no sign of intestinal obstruction or pneumoperitoneum. There is gas in the large bowel suggestive of ileus. There is oral contrast in the right colon. There is no sign of an abdominal mass. I see no bony destructive process. IMPRESSION: Large bowel gas consistent with intestinal ileus. Mild fibrotic changes and infiltrate at the right lung base unchanged compared to last exam. No heart failure seen. Cardiomegaly.
--- NOTE | 2018-07-10 19:58 | PN ---
PROGRESS NOTE DATE OF SERVICE: 07/10/2018 This 83-year-old gentleman who was admitted with fall and acute pelvis fracture also had rhabdomyolysis. Patient has been closely monitored. No chest pain. No palpitations. No fever. PAST MEDICAL HISTORY: Reviewed. REVIEW OF SYSTEMS: CARDIOVASCULAR: No angina. RESPIRATORY: As mentioned earlier. GI: As mentioned. : No dysuria. NERVOUS SYSTEM: As mentioned. CURRENT MEDICATIONS: 1. [place] 7.5 mg. 2. DuoNeb. 3. Eliquis 5 mg b.i.d. 4. Dilaudid. 5. Celexa 40 mg. 6. Colace. 7. Levaquin. 8. Levemir. 9. Magnesium oxide. 10.Narcan. 11.Protonix. 12.Flomax. 13.Visine eyedrops. PHYSICAL EXAM: Patient is alert, oriented x3. Pulse 72, blood pressure 130/58, respiration 20, temperature 98.2, pulse ox 94% on 4 L. HEENT: conjunctivae normal. CARDIOVASCULAR: S1, S2. RESPIRATORY: Breath sounds diminished in the bases. Bilateral scattered rhonchi and crackles. Expiratory wheezing. ABDOMEN: Soft, nontender. The abdomen is distended. The patient is constipated. LEGS: No edema. NERVOUS SYSTEM: Diffusely weak. LABS: WBC 8, hemoglobin is 8.6. AST is 86, ALT is 103 and creatinine kinase 331. ASSESSMENT: 1. Fall and acute pelvis fracture, right superior inferior pubic rami with severe pain and gait dysfunction. 2. Acute rhabdomyolysis. 3. Paroxysmal atrial fibrillation. 4. Severe hypotension, monitored in ICU, possibly secondary to dehydration, multifactorial. 5. Possible acute right-sided pneumonia, possibly gram-negative. 6. Elevated troponin of 1.17 indeterminate. Myocardial infarction unlikely per Cardiology. 7. Fever, elevated WBC possible acute urinary tract infection present on admission, not related to [place] catheter. 8. Increased creatinine with possible acute renal failure with baseline chronic renal failure stage III. 9. Abdominal distention, constipation. 10.Anemia, normocytic anemia of chronic disease. 11.Increased AST. 12.Gastroesophageal reflux disease. 13.Hypertension. 14.History of degenerative joint disease. 15.History of prostate disorder. 16.History of gout. 17.History of asbestos exposure. 18.History of right lung cancer. 19.History of adenoidectomy. 20.History of major depression. 21.History of nicotine dependence. 22.NO CODE, NO CPR, NO VENT. RECOMMENDATIONS AND DISCUSSION: I recommend to continue current medications, continue monitoring and symptomatic treatment. Otherwise at this time I recommend continue with antibiotics. I would also recommend abdominal flatplate and an acute abdominal series. We will continue to monitor. Guarded prognosis because of multiple complex medical issues. Further recommendations to follow. MMCECIL / IJN: [id number] /
[2018-07-11] MEDS: MELATONIN 3 MG TABLET PO PRN ×2 (02:22→23:40)
[2018-07-11] MEDS: PANTOPRAZOLE 40 MG TABLET PO SCH (06:41)
[2018-07-11 06:43] LABS: Basophils # (A) 0.1 k/uL (0-0.2); Basophils % (A) 1 %; Eosinophils # (A) 0.4 k/uL (0-0.7); Eosinophils % (A) 4 %; HCT 29.1 % (39.0-53.0); HGB 9.1 gm/dL (13.0-17.5); Lymphocytes # (A) 0.7 k/uL (1.0-4.8); Lymphocytes % (A) 6 %; MCH 29.8 pg (25.0-35.0); MCHC 31.3 g/dL (31.0-37.0); MCV 95.1 fL (80.0-100.0); Mean Platelet Volume 6.7; Monocytes # (A) 0.9 k/uL (0-1.0); Monocytes % (A) 8 %; Neutrophils % (A) 79 %; Platelet Count 236 k/uL (150-450); RBC 3.05 m/uL (4.30-5.90); RDW 14.2 % (11.5-15.5); WBC 11.4 k/uL (3.8-10.6)
[2018-07-11 06:58] LABS: Albumin 2.9 g/dL (3.5-5.0); Calcium 8.4 mg/dL (8.4-10.2); Potassium 3.8 mmol/L (3.5-5.1); Total Bilirubin 0.9 mg/dL (0.2-1.3); Total Protein 5.6 g/dL (6.3-8.2)
[2018-07-11] MEDS: IPRATROPIUM-ALBUTEROL 3 ML NEB INHALATION SCH ×3 (07:27→19:27)
[2018-07-11] MEDS: CITALOPRAM HYDROBROMIDE 20 MG TAB PO SCH (09:39)
[2018-07-11] MEDS: LIDOCAINE 5% PATCH TOPICAL SCH (09:39)
[2018-07-11] MEDS: DOCUSATE 100 MG CAP PO SCH ×2 (09:39→23:39)
[2018-07-11] MEDS: TAMSULOSIN 0.4 MG CAP.ER.24H PO SCH (09:39)
[2018-07-11] MEDS: APIXABAN 5 MG TAB PO SCH (09:39)
[2018-07-11] MEDS: SODIUM CHLORIDE 0.9% 1,000 ML IV SCH (12:27)
--- NOTE | 2018-07-11 14:04 | P.PN ---
Subjective Progress Note Date: 07/11/18 Principal diagnosis: Status post fall and multiple right-sided rib fractures, acute rhabdomyolysis, hypotension and second degree AV block Mobitz type I his 83-year-old white male patient that follows at the [facility], who was brought to the emergency department on 07/06/2018 after sustaining a mechanical fall, patient tripped on a curb and fell onto his right hip. Afterwards patient had difficulty bearing weight, was unable to ambulate, and also had some discomfort in the right anterior ribs and abdomen. He didn't strike his head in the fall, but denied any loss of consciousness. No altered mentation, and no neurological deficits. X-ray of the hip and pelvis revealed right-sided pubic ramus fracture. CT of the chest, abdomen and pelvis showed moderate centrilobular emphysema, areas of interstitial scarring, and a suspicious right lower lobe mass measuring 5.2 cm with an enlarged 2.2 cm subcarinal lymph node. Subtle nondisplaced fractures of the right lateral fourth through seventh ribs. A lobulated 4.7 cm left kidney cyst. 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 CT of the head and cervical spine showed no acute fracture and no acute intracranial abnormality. EKG showed sinus rhythm with right bundle branch block, but no acute ischemic changes. 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 No past medical history of cancer. Denies any recent weight loss, appetite loss, no night sweats, no hemoptysis, no chest wall tenderness. Other medical history includes hypertension, hyperlipidemia, chronic kidney disease, patient used to follow with a mobile ui developer, past history of EtOH abuse currently in remission, chronic back pain, GERD/reflux, depression. Patient's on is at the bedside, and he states patient has been experiencing falls at home , does ambulate with a walker. Currently patient is resting in bed, is having right-sided chest wall discomfort, worse with repositioning, but in no acute distress, pulse ox is 92% on 2 L per nasal cannula, is receiving pain medications, and has been noted to be hypotensive likely related to the effects of the narcotic analgesic. Afebrile. Lung sounds are diminished. No cough, no chest congestion. Patient's total CK was elevated at 2401, and has actually been trending up currently at 5529. Positive troponins of 0.218, 1.110, and 1.660, cardiology is following. Blood work showed a white blood cell count of 13.4, hemoglobin of 10.7, electrolytes were unremarkable, BUN was 28 and creatinine was 2.0 on admission. Plasma lactic acid is 1.0. Serum alcohol was less than 10, urine drug screen was positive for opiates, patient has a prescription for Cando. Were consulted in regards to the right lower lobe lung mass subcarinal adenopathy, suspicious for lung cancer. Patient was reevaluated today on 07/08/2018. Late afternoon yesterday, patient was transferred to the intensive care unit mostly because of persistent hypotension, and bradycardia arrhythmia with second degree AV block, Mobitz type I. His hypotension was felt to be multifactorial, mostly related to blood pressure medications, narcotics for pain control, and possibly relative dehydration. Patient was given fluids did not improve much, hence he was placed overnight on a small dose of norepinephrine. This morning he is off norepinephrine, blood pressure is much better controlled, and the patient is feeling better. He is complaining however of some difficulty swallowing and I recommended a modified barium swallow, patient is having difficulty swallowing solid food and liquids. Pain seems to be better controlled from his rib fractures. Labs were reviewed relatively normal CBC hemoglobin however is 9 electrolytes are normal BUN is up to 36 creatinine is 2.48. CPK which was initially elevated secondary to fall is coming down to 4406 today. Patient is still receiving fluids at 100 mL per hour. Urine output is reasonable without any diuretics at 40 mL per hour. Chest x-ray was reviewed, right lower lobe mass was again noted. And this was also noted on the CT of the chest. Reevaluated today on 07/09/2018, patient remains in the intensive care unit, but he is basically an overflow from selective. No further episodes of hypotension , no further episodes of bradycardia,he does have paroxysmal atrial fibrillation with episodes of second-degree AV block, Mobitz type I. Patient had videoscopic fluoroscopy for evaluation of dysphagia, and he was noted to havepenetration without aspiration of thin liquids however there was a significant reflux in proximal cervical esophagus. And the radiologist recommended esophagogram or evaluation by gastroenterology. Will consult gastroenterology for further evaluation of this issue.apparently his dysphagia has been a chronic issue. Labs today showed a relatively normal electrolytes renal functioning is improving creatinine is down to 1.51 from 2.48 yesterday. WBC count is 8.4 hemoglobin is 8.5, liver enzymes are improving. CPK is down to 941 The patient is seen today 07/10/2018 in follow-up on the selective care unit. He is awake and alert in no acute distress. He is maintaining good O2 saturations in the 90s on 4 L/m per nasal cannula. He is afebrile. Hemodynamically stable. White count 8.5. Hemoglobin 8.6. Creatinine 1.20. Creatinine kinase down to 331. AST 86, ALT 103. He has been initiated on Eliquis per cardiology for paroxysmal atrial fibrillation. Continue to monitor heart rhythm. Reevaluated today on 07/11/2018, patient is doing well from the pulmonary perspective. However continues to have lots of GI symptoms and unable to swallow. I did consult GI again, and hopefully the patient could have for GI evaluation and possible EGD in the next 24 hours. Patient denies any shortness of breath, no cough, no wheezing, denies any fever, no chills, no hemoptysis. His right-sided chest pain related to his fractures seems to be under control. WBC count is 11.4 hemoglobin is 9.1. His electrolytes are normal renal profile is normal and significantly improved over the last few days since admission. CPK is down further to 238. His acute abdominal series today is suggestive of intestinal ileus. However the patient told me that he had a good sized bowel movement earlier today. Hence no need for nasogastric tube and no need for surgical intervention. Not to mention the patient has no abdominal pain and no distention Objective - Vital Signs Vital signs: Vital Signs Temp 97.8 F 07/11/18 08:15 Pulse 82 07/11/18 08:15 Resp 18 07/11/18 08:15 BP 170/66 07/11/18 08:15 Pulse Ox 93 L 07/11/18 08:15 Intake & Output 07/10/18 07/11/18 07/11/18 18:59 06:59 18:59 Intake Total 1525 240 Output Total 700 100 300 Balance 825 -100 -60 Weight 83.5 kg Intake: IV 800 Sodium Chloride 0.9% 1, 800 000 ml @ 50 mls/hr IV . Q20H ROM Rx#:[id number] Intake, IV Titration 125 Amount Levofloxacin 250Mg-D5w 50 Pmx 250 mg In Dextrose/ Water 1 50ml.bag @ 50 mls /hr IVPB Q24H ROM Rx#: [id number] Sodium Chloride 0.9% 1, 75 000 ml @ 50 mls/hr IV . Q20H ROM Rx#:[id number] Oral 600 240 Output: Urine 700 100 300 Other: Voiding Method Indwelling Catheter Urinal Diaper # Voids 1 - Exam Physical Exam revealed 83-year-old white male, comfortable, his only complaint is dysphagia Head: Atraumatic normocephalic HEENT:[Neck is supple.] [No neck masses.] [No thyromegaly.] [No JVD.] PERRLA, EOMI, no icterus. Chest: [Clear throughout, no crackles, no rhonchi, no wheezes.] Tenderness remains unchanged over the anterior chest wall. Cardiac Exam: [Irregular rhythm Normal S1 and S2, no S3 gallop, 2/6 systolic murmur thought the precordium..] Abdomen: [Soft, nontender, no megaly, no rebound, no guarding, normal bowel sounds. Extremities: [No clubbing, no edema, no cyanosis.] Good pulses bilaterally Neurological Exam: [No focal neurologic deficit.] Alert oriented 3. Psychiatric: Normal mood, affect and mental status exam. Skin: No rashes. - Labs CBC & Chem 7: 07/11/18 06:02 07/11/18 06:02 Labs: Abnormal Lab Results - Last 24 Hours (Table) 07/11/18 07/11/18 Range/Units 06:02 06:02 WBC 11.4 H (3.8-10.6) k/uL RBC 3.05 L (4.30-5.90) m/uL Hgb 9.1 L (13.0-17.5) gm/dL Hct 29.1 L (39.0-53.0) % Neutrophils # 9.0 H (1.3-7.7) k/uL Lymphocytes # 0.7 L (1.0-4.8) k/uL Chloride 109 H (98-107) mmol/L Glucose 114 H (74-99) mg/dL ALT 86 H (21-72) U/L Creatine Kinase 238 H (55-170) U/L Total Protein 5.6 L (6.3-8.2) g/dL Albumin 2.9 L (3.5-5.0) g/dL Microbiology - Last 24 Hours (Table) 07/07/18 15:07 Blood Culture - Preliminary Blood No Growth after 72 hours Assessment and Plan Assessment: Impression: 1 status post fall and multiple right-sided rib fractures. 2 dysphagia, recommended GI evaluation, patient had abnormal modified barium swallow. 3 acute rhabdomyolysis and acute kidney injury significantly improved based on the labs today. 4 right lower lobe lung mass strongly suspicious for bronchogenic carcinoma, will definitely need further workup and tissue diagnosis on outpatient basis unless his hospital course will be longer and the patient could have CT-guided needle biopsy. 5 severe COPD currently inactive. 6 [id number] smoking history quit in 1979 7 history of depression. 8 chronic atrial fibrillation 9 second degree AV block Mobitz type I, being addressed by cardiology. 10 acute urinary tract infection Recommendation: GI was consulted again, continue pain control for his right- sided rib fractures, keep a close watch in his abdominal findings and symptoms. Continue bronchodilators. Continue antibiotics. for urinary tract infection. Physical therapy to evaluate the patient, patient will likely benefit from long-term rehab. Overall prognosis is extremely poor considering his right- sided lung mass. And the patient clearly has multiple comorbidities as noted above. We'll continue to follow. Time with Patient: Less than 30
--- NOTE | 2018-07-11 14:37 | P.PN ---
Subjective Progress Note Date: 07/11/18 This is an 83-year-old gentleman with past medical history significant for hypertension, hyperlipidemia, GERD, depression, prior history of smoking, emphysema, who presented to the hospital after experiencing a fall. According to the patient, he tripped backwards over the curb, actually crawled into the house because he could not get himself up. He apparently sat himself in a chair and stayed there until the next morning when he ultimately called his son. Patient does state he's been having some falls at home, he does state that he gets dizzy prior to falling and becomes extremely weak. Denies losing consciousness. X-ray of the pelvis performed which revealed a right sided pubic ramus fracture. CT of the chest and abdomen was also completed which showed segmental angulated fractures of the right inferior pubic ramus, nondisplaced fracture of the lateral aspect of the right superior pubic ramus and additional nondisplaced own sacral fracture. Subtle nondisplaced fractures of the right lateral fourth through seventh ribs. Findings highly suspicious for 5.2 cm right lower lobe lung cancer with metastatic subcarinal lymphadenopathy. Ambulated 4.7 cm lesion in the left kidney. COPD with moderate emphysema, 3 cm AAA. Blood pressure 118/50 with a heart rate in the 70s, temperature 99.1, 95% on 2 L of oxygen. White blood cell count 13.4, hemoglobin 10.7, platelet count 139. Sodium on admission 139, potassium 4.7, BUN 28, creatinine 2.0, total bilirubin 1.7, AST 80, ALT 20, CKs , 2401, 4895, 5529. MB 13.1, 22.1, 30.0. Troponin 0.21, 1.1, 1.6. Urine drug screen positive for opiates. 07/10/2018 Patient seen and examined this morning, blood pressure and heart rate remaining stable, 96% on 4 L of oxygen. White blood cell count is normal, hemoglobin 8.6 , platelet count 176. Sodium 138, potassium 4.3, BUN 18, creatinine 1.2. LFTs improving. 07/11/2018 Patient seen and examined this morning, is having multiple episodes of vomiting , emesis appears brown in color and a surgical consult has been placed. Hemodynamically the patient has been stable. Blood pressure 140/60 with a heart rate in the 70s, 93% on 2 L of oxygen. Objective - Vital Signs Vital signs: Vital Signs Temp 98.4 F 07/11/18 12:30 Pulse 74 07/11/18 12:30 Resp 18 07/11/18 12:30 BP 145/67 07/11/18 12:30 Pulse Ox 93 L 07/11/18 12:30 Intake & Output 07/10/18 07/11/18 07/11/18 18:59 06:59 18:59 Intake Total 1525 240 Output Total 700 100 300 Balance 825 -100 -60 Weight 83.5 kg Intake: IV 800 Sodium Chloride 0.9% 1, 800 000 ml @ 50 mls/hr IV . Q20H ROM Rx#:[id number] Intake, IV Titration 125 Amount Levofloxacin 250Mg-D5w 50 Pmx 250 mg In Dextrose/ Water 1 50ml.bag @ 50 mls /hr IVPB Q24H ROM Rx#: [id number] Sodium Chloride 0.9% 1, 75 000 ml @ 50 mls/hr IV . Q20H ROM Rx#:[id number] Oral 600 240 Output: Urine 700 100 300 Other: Voiding Method Indwelling Catheter Urinal Diaper # Voids 1 - Exam Physical Exam revealed 83-year-old white male, comfortable, in no distress.still complaining of dysphagia to liquids and solids. Head: Atraumatic normocephalic HEENT:[Neck is supple.] [No neck masses.] [No thyromegaly.] [No JVD.] PERRLA, EOMI, no icterus. Chest: [Clear throughout, no crackles, no rhonchi, no wheezes.] Tenderness remains unchanged over the anterior chest wall. Cardiac Exam: [Irregular rhythm Normal S1 and S2, no S3 gallop, 2/6 systolic murmur thought the precordium..] Abdomen: [Soft, nontender, no megaly, no rebound, no guarding, normal bowel sounds. Extremities: [No clubbing, no edema, no cyanosis.] Good pulses bilaterally Neurological Exam: [No focal neurologic deficit.] Alert oriented 3. Psychiatric: Normal mood, affect and mental status exam. Skin: No rashes. - Labs CBC & Chem 7: 07/11/18 06:02 07/11/18 06:02 Labs: Abnormal Lab Results - Last 24 Hours (Table) 07/11/18 07/11/18 Range/Units 06:02 06:02 WBC 11.4 H (3.8-10.6) k/uL RBC 3.05 L (4.30-5.90) m/uL Hgb 9.1 L (13.0-17.5) gm/dL Hct 29.1 L (39.0-53.0) % Neutrophils # 9.0 H (1.3-7.7) k/uL Lymphocytes # 0.7 L (1.0-4.8) k/uL Chloride 109 H (98-107) mmol/L Glucose 114 H (74-99) mg/dL ALT 86 H (21-72) U/L Creatine Kinase 238 H (55-170) U/L Total Protein 5.6 L (6.3-8.2) g/dL Albumin 2.9 L (3.5-5.0) g/dL Microbiology - Last 24 Hours (Table) 07/07/18 15:07 Blood Culture - Preliminary Blood No Growth after 72 hours Assessment and Plan Plan: Assessment and plan #1 fall with evidence of acute pelvic fractures #2 acute rhabdomyolysis #3 anemia of chronic disease #4 hypertension #5 hyperlipidemia #6 acute UTI #7 depression #8 CT of the chest highly suspicious for 5.2 cm right lower lobe lung cancer with metastatic subcarinal lymphadenopathy. #9 acute on chronic renal insufficiency Plan From cardiology's perspective we will continue anticoagulation with Eliquis. It was explained to the patient and his family at bedside that he did have episodes of second-degree heart block which may require pacemaker down the road. We will continue with current medications at this time. DNP note has been reviewed, I agree with a documented findings and plan of care. Patient was seen and examined.
[2018-07-11] MEDS: PANTOPRAZOLE 40 MG/10 ML VIAL IVP ONE ×2 (14:52→21:36)
[2018-07-11] MEDS: LEVOFLOXACIN 250MG-D5W PMX 250 MG in DEXTROSE/WATER 1 50ML.BAG IVPB SCH (15:02)
[2018-07-11] MEDS: METOCLOPRAMIDE 5 MG/ML 2 ML VIAL IVP PRN ×2 (16:07→23:40)
--- NOTE | 2018-07-11 17:38 | PN ---
PROGRESS NOTE DATE OF SERVICE: 07/11/2018 This 83-year-old gentleman was admitted with fall and acute pelvic fracture, also had rhabdomyolysis. Patient also complaining abdominal distention. Patient also had vomiting also today. The patient also had ileus in the x-rays in the acute abdominal series. Surgical evaluation has been sought at this time. PAST MEDICAL HISTORY: Reviewed. REVIEW OF SYSTEMS: CARDIOVASCULAR: No angina. RESPIRATORY: As mentioned. GI: As mentioned. : No dysuria. NERVOUS SYSTEM: No numbness or weakness. CURRENT MEDICATIONS: Reviewed and include: 1. [place] 7.5 q.6h p.r.n. 2. DuoNeb q.i.d. p.r.n. 3. Dulcolax 5 mg p.r.n. 4. Colace 100 mg b.i.d. 5. Levaquin 250 mg q.24 hours. 6. Lidoderm patch. 7. Melatonin 3 mg q.h.s. p.r.n. 8. Reglan 5 mg IV q.6. 9. Magnesium oxide. 10.Narcan. 11.Zofran. 12.Protonix. 13.Flomax. PHYSICAL EXAM: Patient is alert, oriented x3. Pulse 74, blood pressure 145/67, respiration 18, temperature 98.2, pulse ox 93% on 2 L. HEENT: Conjunctivae normal. NECK: No jugular venous distention. CARDIOVASCULAR: S1, S2 muffled. RESPIRATORY: Breath sounds diminished in the bases. A few scattered rhonchi. ABDOMEN: Soft, mild diffuse distention present. No guarding. No rigidity. Mild diffuse discomfort on palpation. Bowel sounds diminished. LEGS: No edema. NERVOUS SYSTEM: No focal deficits. Mild diffuse weakness. LABS: WBC 11, hemoglobin 9.1, sodium 138 and ALT is 86, AST 75, creatine kinase 238. ASSESSMENT: 1. Fall and acute pelvis fracture, right superior inferior pubic rami with severe pain and gait dysfunction. 2. Acute rhabdomyolysis. 3. Paroxysmal atrial fibrillation. 4. Abdominal distention, possibly ileus. 5. Severe hypotension monitored in ICU, possibly secondary to dehydration, multifactorial. 6. Possible acute right-sided pneumonia possibly gram-negative. 7. Elevated troponin 1.172, indeterminate. Myocardial infarction unlikely per Cardiology. 8. Fever, elevated WBC, possibly urinary tract infection, present on admission, not related to [place] catheter. 9. Increased creatinine with possible acute renal failure with baseline chronic kidney stage III. 10.Abdominal distention. 11.Anemia, normocytic, anemia of chronic disease. 12.Increased AST. 13.Gastroesophageal reflux disease. 14.Hypertension. 15.History of degenerative joint disease. 16.History of prostate disorder. 17.History of gout. 18.History of asbestos exposure. 19.History of right lung cancer. 20.History of adenoidectomy. 21.History of major depression. 22.History of nicotine dependence. 23.NO CODE, NO CPR, NO VENT. RECOMMENDATIONS AND DISCUSSION: In this 83-year-old gentleman admitted with multiple medical issues, at this time I recommend to continue current management, monitoring and symptomatic treatment. Otherwise continue the broad-spectrum IV antibiotics. The cultures are showing Aerococcus urinae in the urine culture. Otherwise, the patient also had abdominal distention, which is relatively new onset and acute abdominal series has been reviewed. Recommend surgical evaluation. Continue with proton pump inhibitors. Repeat labs in the morning. Otherwise, prognosis guarded because of multiple complex medical issues. Further recommendations to follow. Discussed with family. I will follow the patient closely along with multiple consultants. MMODL / IJN: [id number] /
[2018-07-11] MEDS ORDERED: MELATONIN 3 MG TABLET PO SCH (21:00)
[2018-07-11] MEDS: ONDANSETRON 4 MG/2 ML VIAL IVP PRN (21:35)
[2018-07-11] MEDS: PANTOPRAZOLE 40 MG/10 ML VIAL IVP SCH (21:38)
[2018-07-11] MEDS: MORPHINE SULFATE 2 MG/ML SYRINGE IVP PRN (23:41)
--- NOTE | 2018-07-12 06:14 | P.CONS ---
History of Present Illness - Reason for Consult Consult date: 07/11/18 Dysphagia, reflux under fluoroscopy. - History of Present Illness This is an 83-year-old gentleman with past medical history significant for hypertension, hyperlipidemia, GERD, depression, prior history of smoking, emphysema, who presented to the hospital after experiencing a fall. According to the patient, he tripped backwards over the curb, actually crawled into the house because he could not get himself up. He apparently sat himself in a chair and stayed there until the next morning when he ultimately called his son. Patient does state he's been having some falls at home, he does state that he gets dizzy prior to falling and becomes extremely weak. Denies losing consciousness. X-ray of the pelvis performed which revealed a right sided pubic ramus fracture. CT of the chest and abdomen was also completed which showed segmental angulated fractures of the right inferior pubic ramus, nondisplaced fracture of the lateral aspect of the right superior pubic ramus and additional nondisplaced own sacral fracture. Subtle nondisplaced fractures of the right lateral fourth through seventh ribs. Findings highly suspicious for 5.2 cm right lower lobe lung cancer with metastatic subcarinal lymphadenopathy. Ambulated 4.7 cm lesion in the left kidney. COPD with moderate emphysema, 3 cm AAA. Blood pressure 118/50 with a heart rate in the 70s, temperature 99.1, 95% on 2 L of oxygen. White blood cell count 13.4, hemoglobin 10.7, platelet count 139. Sodium on admission 139, potassium 4.7, BUN 28, creatinine 2.0, total bilirubin 1.7, AST 80, ALT 20, CKs , 2401, 4895, 5529. MB 13.1, 22.1, 30.0. Troponin 0.21, 1.1, 1.6. Urine drug screen positive for opiates. We are asked to see him for nausea, dysphagia and dark emesis. Had evidence on reflux under fluoroscopy. Last eliquis dose this morning. Review of Systems REVIEW OF SYSTEMS: CONSTITUTIONAL: Denies any fevers, chills, weight change or fatigue. CARDIOVASCULAR: Denies any chest pain, palpitations high or low blood pressures RESPIRATORY: Denies any shortness of breath, hemoptysis or cough. GENITOURINARY: No dysuria or hematuria. MUSCULOSKELETAL: No weakness reported. SKIN: Denies any new rashes or lesions, jaundice or pallor. PSYCHIATRIC: Denies any depression or anxiety. NEUROLOGY: Denies headache, denies any new focal deficits. EARS/NOSE/THROAT: No recent hearing change, congestion, nasal discharge or sore throat. EYES: No pain in eyes, discharge or change in vision. GASTROINTESTINAL: As per HPI. 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" History of Any Multi-Drug Resistant Organisms: None Reported Past Surgical History: Adenoidectomy, Cholecystectomy, Tonsillectomy Past Anesthesia/Blood Transfusion Reactions: No Reported Reaction Additional Past Anesthesia/Blood Transfusion Reaction / Comm: has never recieved any blood transfusions Smoking Status: Former smoker - Past Family History Mother Family Medical History: Cancer Additional Family Medical History / Comment(s): breast cancer Father Family Medical History: Cancer, Prostate Disorder Additional Family Medical History / Comment(s): prostate cancer Medications and Allergies Home Medications Medication Instructions Recorded Confirmed Type Citalopram Hydrobromide 40 mg PO DAILY 09/24/13 07/06/18 History [Citalopram HBr] HYDROcodone/APAP 10-325MG [[place] 1 tab PO Q4H 09/24/13 07/06/18 History 10] Omeprazole [PriLOSEC] 20 mg PO AC-BRKFST 09/24/13 07/06/18 History Simvastatin [Zocor] 80 mg PO HS 09/24/13 07/06/18 History amLODIPine [Norvasc] 5 mg PO DAILY 09/24/13 07/06/18 History Metoprolol Tartrate [Lopressor] 50 mg PO BID 07/06/18 07/06/18 History Tamsulosin HCl [Flomax] 0.4 mg PO DAILY 07/06/18 07/06/18 History Allergies Allergy/AdvReac Type Severity Reaction Status Date / Time Penicillins AdvReac Dyspnea Verified 07/06/18 20:33 shellfish derived AdvReac Dyspnea Verified 07/06/18 14:03 Physical Exam Vitals: Vital Signs Temp Pulse Pulse Resp BP Pulse Ox 07/11/18 12:30 98.4 F 74 18 145/67 93 L 07/11/18 08:15 97.8 F 82 18 170/66 93 L 07/11/18 03:23 98.0 F 75 18 125/60 94 L 07/11/18 00:00 98.5 F 80 18 128/63 93 L 07/10/18 20:00 98.0 F 72 18 135/75 94 L 07/10/18 19:23 78 07/10/18 19:13 77 07/10/18 16:34 98.3 F 72 20 135/58 95 Intake and Output 07/11/18 07/11/18 07/11/18 06:59 14:59 22:59 Intake Total 240 Output Total 100 300 Balance -100 -60 Intake: Oral 240 Output: Urine 100 300 Other: # Voids 1 Weight 83.5 kg On physical examination, patient appears comfortable in no apparent distress. HEAD: Normocephalic, atraumatic. EYES: No scleral icterus. No conjunctival injection. MOUTH: No lesions, tongue midline. NECK: Trachea midline, no gross abnormalities. CHEST: Clear to auscultation with no wheezing or rhonchi appreciated. HEART: Regular rate and rhythm. ABDOMEN: Soft, obese. Bowel sounds are positive. No organomegaly. No guarding or rigidity. EXTREMITIES: No pedal edema. SKIN: No rashes, no jaundice. NEUROLOGIC: Alert and oriented x3. No focal deficits. Results CBC & Chem 7: 07/11/18 06:02 07/11/18 06:02 Labs: Abnormal Lab Results - Last 24 Hours (Table) 07/11/18 07/11/18 Range/Units 06:02 06:02 WBC 11.4 H (3.8-10.6) k/uL RBC 3.05 L (4.30-5.90) m/uL Hgb 9.1 L (13.0-17.5) gm/dL Hct 29.1 L (39.0-53.0) % Neutrophils # 9.0 H (1.3-7.7) k/uL Lymphocytes # 0.7 L (1.0-4.8) k/uL Chloride 109 H (98-107) mmol/L Glucose 114 H (74-99) mg/dL ALT 86 H (21-72) U/L Creatine Kinase 238 H (55-170) U/L Total Protein 5.6 L (6.3-8.2) g/dL Albumin 2.9 L (3.5-5.0) g/dL Microbiology - Last 24 Hours (Table) 07/07/18 15:07 Blood Culture - Preliminary Blood No Growth after 72 hours Assessment and Plan Assessment: Dysphagia, nausea and coffee ground emesis. Evidence of reflux under fluro. Likely secondary to GERD and complicated reflux disease. Will consider EGD as you have suggested. Plan: Will wait for total of 48 hours off antiplatelet therapy. Probably EGD AM.
[2018-07-12] MEDS: ONDANSETRON 4 MG/2 ML VIAL IVP PRN (06:51)
[2018-07-12 06:53] LABS: Basophils # (A) 0.1 k/uL (0-0.2); Basophils % (A) 0 %; Eosinophils # (A) 0.1 k/uL (0-0.7); Eosinophils % (A) 1 %; HCT 28.6 % (39.0-53.0); HGB 9.4 gm/dL (13.0-17.5); Hypochromasia Slight; Lymphocytes # (A) 0.7 k/uL (1.0-4.8); Lymphocytes % (A) 5 %; MCH 31.7 pg (25.0-35.0); MCV 96.2 fL (80.0-100.0); Mean Platelet Volume 6.5; Monocytes # (A) 1.2 k/uL (0-1.0); Monocytes % (A) 8 %; Neutrophils # (A) 12.8 k/uL (1.3-7.7); Neutrophils % (A) 85 %; Platelet Count 280 k/uL (150-450); RBC 2.97 m/uL (4.30-5.90); RDW 14.3 % (11.5-15.5); WBC 15.1 k/uL (3.8-10.6)
[2018-07-12 07:01] LABS: Albumin 3.1 g/dL (3.5-5.0); Calcium 8.6 mg/dL (8.4-10.2); Potassium 3.7 mmol/L (3.5-5.1); Total Bilirubin 1.2 mg/dL (0.2-1.3); Total Protein 5.9 g/dL (6.3-8.2)
--- NOTE | 2018-07-12 07:52 | P.GSCN ---
History of Present Illness Consult date: 07/11/18 History of present illness: Patient has ileus after trauma and is an expected condition. Recommend ice chips and popsicles. Correct electrolytes. No surgical intervention. Hold NGT at this time. AXR reviewed consistent with ileus. 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" History of Any Multi-Drug Resistant Organisms: None Reported Past Surgical History: Adenoidectomy, Cholecystectomy, Tonsillectomy Past Anesthesia/Blood Transfusion Reactions: No Reported Reaction Additional Past Anesthesia/Blood Transfusion Reaction / Comm: has never recieved any blood transfusions Smoking Status: Former smoker - Past Family History Mother Family Medical History: Cancer Additional Family Medical History / Comment(s): breast cancer Father Family Medical History: Cancer, Prostate Disorder Additional Family Medical History / Comment(s): prostate cancer Medications and Allergies Home Medications Medication Instructions Recorded Confirmed Type Citalopram Hydrobromide 40 mg PO DAILY 09/24/13 07/06/18 History [Citalopram HBr] HYDROcodone/APAP 10-325MG [[place] 1 tab PO Q4H 09/24/13 07/06/18 History 10] Omeprazole [PriLOSEC] 20 mg PO AC-BRKFST 09/24/13 07/06/18 History Simvastatin [Zocor] 80 mg PO HS 09/24/13 07/06/18 History amLODIPine [Norvasc] 5 mg PO DAILY 09/24/13 07/06/18 History Metoprolol Tartrate [Lopressor] 50 mg PO BID 07/06/18 07/06/18 History Tamsulosin HCl [Flomax] 0.4 mg PO DAILY 07/06/18 07/06/18 History Allergies Allergy/AdvReac Type Severity Reaction Status Date / Time Penicillins AdvReac Dyspnea Verified 07/06/18 20:33 shellfish derived AdvReac Dyspnea Verified 07/06/18 14:03 Surgical - Exam Vital Signs Temp Pulse Resp BP Pulse Ox 97.8 F 76 22 137/57 99 07/06/18 13:33 07/06/18 13:33 07/06/18 13:33 07/06/18 13:33 07/06/18 13:33 Results - Labs 07/12/18 06:15 07/12/18 06:15 Abnormal Lab Results - Last 24 Hours (Table) 07/11/18 07/11/18 Range/Units 06:02 06:02 WBC 11.4 H (3.8-10.6) k/uL RBC 3.05 L (4.30-5.90) m/uL Hgb 9.1 L (13.0-17.5) gm/dL Hct 29.1 L (39.0-53.0) % Neutrophils # 9.0 H (1.3-7.7) k/uL Lymphocytes # 0.7 L (1.0-4.8) k/uL Chloride 109 H (98-107) mmol/L Glucose 114 H (74-99) mg/dL ALT 86 H (21-72) U/L Creatine Kinase 238 H (55-170) U/L Total Protein 5.6 L (6.3-8.2) g/dL Albumin 2.9 L (3.5-5.0) g/dL Microbiology - Last 24 Hours (Table) 07/07/18 15:07 Blood Culture - Preliminary Blood No Growth after 96 hours Diabetes panel 07/11/18 Range/Units 06:02 Sodium 138 (137-145) mmol/L Potassium 3.8 (3.5-5.1) mmol/L Chloride 109 H (98-107) mmol/L Carbon Dioxide 22 (22-30) mmol/L BUN 15 (9-20) mg/dL Creatinine 1.06 (0.66-1.25) mg/dL Glucose 114 H (74-99) mg/dL Calcium 8.4 (8.4-10.2) mg/dL AST 55 (17-59) U/L ALT 86 H (21-72) U/L Alkaline Phosphatase 78 (38-126) U/L Total Protein 5.6 L (6.3-8.2) g/dL Albumin 2.9 L (3.5-5.0) g/dL Calcium panel 07/11/18 Range/Units 06:02 Calcium 8.4 (8.4-10.2) mg/dL Albumin 2.9 L (3.5-5.0) g/dL Pituitary panel 07/11/18 Range/Units 06:02 Sodium 138 (137-145) mmol/L Potassium 3.8 (3.5-5.1) mmol/L Chloride 109 H (98-107) mmol/L Carbon Dioxide 22 (22-30) mmol/L BUN 15 (9-20) mg/dL Creatinine 1.06 (0.66-1.25) mg/dL Glucose 114 H (74-99) mg/dL Calcium 8.4 (8.4-10.2) mg/dL Adrenal panel 07/11/18 Range/Units 06:02 Sodium 138 (137-145) mmol/L Potassium 3.8 (3.5-5.1) mmol/L Chloride 109 H (98-107) mmol/L Carbon Dioxide 22 (22-30) mmol/L BUN 15 (9-20) mg/dL Creatinine 1.06 (0.66-1.25) mg/dL Glucose 114 H (74-99) mg/dL Calcium 8.4 (8.4-10.2) mg/dL Total Bilirubin 0.9 (0.2-1.3) mg/dL AST 55 (17-59) U/L ALT 86 H (21-72) U/L Alkaline Phosphatase 78 (38-126) U/L Total Protein 5.6 L (6.3-8.2) g/dL Albumin 2.9 L (3.5-5.0) g/dL
[2018-07-12] MEDS: IPRATROPIUM-ALBUTEROL 3 ML NEB INHALATION SCH ×3 (08:03→20:41)
[2018-07-12] MEDS: METOCLOPRAMIDE 5 MG/ML 2 ML VIAL IVP PRN (08:46)
[2018-07-12] MEDS: SODIUM CHLORIDE 0.9% 1,000 ML IV SCH (08:46)
[2018-07-12] MEDS: DOCUSATE 100 MG CAP PO SCH ×2 (08:47→22:35)
[2018-07-12] MEDS: TAMSULOSIN 0.4 MG CAP.ER.24H PO SCH (08:47)
[2018-07-12] MEDS: PANTOPRAZOLE 40 MG/10 ML VIAL IVP SCH ×2 (08:47→22:00)
[2018-07-12] MEDS: LIDOCAINE 5% PATCH TOPICAL SCH (08:58)
--- NOTE | 2018-07-12 09:59 | P.PN ---
Subjective Progress Note Date: 07/12/18 CHIEF COMPLAINT: Fall HISTORY OF PRESENT ILLNESS: Patient examined at the bedside. Patient reports he is passing flatus. Reports BM 2 days ago. Patient states he normally has a bowel movement every 5-6 days and its been that way for years. He reports drinking too much water this morning and had an episode of emesis. He denies any further episodes of emesis. Currently denies nausea. He reports decrease in abdominal bloating. Denies abdominal pain. PHYSICAL EXAM: VITAL SIGNS: Currently stable. GENERAL: Well-developed in no acute distress. HEENT: No sclera icterus. Extraocular movements grossly intact. Moist buccal mucosa. Head is atraumatic, normocephalic. Hears conversational speech. No nasal drainage. NECK: Supple without lymphadenopathy. CHEST: Non-labored respirations and equal bilateral excursions. CARDIOVASCULAR: Regular rate with regular rhythm. Palpable 2+ radial pulses. ABDOMEN: Soft. Nondistended. Nontender. MUSCULOSKELETAL: No clubbing, cyanosis or edema. NEUROLOGIC: No focal or lateralizing signs. Cranial nerves II through XII grossly intact. PSYCH: Appropriate affect. Alert and oriented to person, place and time. SKIN: Well perfused. Good skin turgor. Large amount of ecchymosis to right chest wall. ASSESSMENT: 1. Traumatic fall 2. Right-sided pubic ramus fracture 3. Nondisplaced fracture of the right lateral fourth through seventh rib 4. Acute rhabdomyolysis 5. Dysphagia 6. Ileus PLAN: 1. Continue ice chips and popsicles only at this time 2. If patient has further episodes of emesis today, may require NG tube placement Nurse practitioner note has been reviewed by physician. Signing provider agrees with the documented findings, assessment, and plan of care. Objective - Vital Signs Vital signs: Vital Signs Temp 98.2 F 07/12/18 08:00 Pulse 76 07/12/18 08:15 Resp 16 07/12/18 08:00 BP 126/78 07/12/18 08:00 Pulse Ox 94 L 07/12/18 08:03 Intake & Output 07/11/18 07/12/18 07/12/18 18:59 06:59 18:59 Intake Total 690 100 Output Total 700 500 Balance -10 -400 Intake: IV 400 Sodium Chloride 0.9% 1, 400 000 ml @ 50 mls/hr IV . Q20H ROM Rx#:[id number] Intake, IV Titration 50 Amount Levofloxacin 250Mg-D5w 50 Pmx 250 mg In Dextrose/ Water 1 50ml.bag @ 50 mls /hr IVPB Q24H ROM Rx#: [id number] Oral 240 100 Output: Urine 700 400 Emesis 100 Other: Voiding Method Incontinent # Bowel Movements 0 # Emeses 2 - Labs CBC & Chem 7: 07/12/18 06:15 07/12/18 06:15 Labs: Abnormal Lab Results - Last 24 Hours (Table) 07/12/18 07/12/18 Range/Units 06:15 06:15 WBC 15.1 H (3.8-10.6) k/uL RBC 2.97 L (4.30-5.90) m/uL Hgb 9.4 L (13.0-17.5) gm/dL Hct 28.6 L (39.0-53.0) % Neutrophils # 12.8 H (1.3-7.7) k/uL Lymphocytes # 0.7 L (1.0-4.8) k/uL Monocytes # 1.2 H (0-1.0) k/uL Chloride 109 H (98-107) mmol/L Glucose 102 H (74-99) mg/dL ALT 73 H (21-72) U/L Creatine Kinase 356 H (55-170) U/L Total Protein 5.9 L (6.3-8.2) g/dL Albumin 3.1 L (3.5-5.0) g/dL Microbiology - Last 24 Hours (Table) 07/07/18 15:07 Blood Culture - Preliminary Blood No Growth after 96 hours Assessment and Plan (1) Ileus Current Visit: Yes Status: Acute Code(s): K56.7 - ILEUS, UNSPECIFIED SNOMED Code(s): 857019821
--- NOTE | 2018-07-12 10:30 | P.PN ---
Subjective Progress Note Date: 07/12/18 Principal diagnosis: Dysphagia Admitted status post fall acute pelvic fracture rhabdomyolysis being followed by general surgery for ileus. Evaluated for dysphagia nausea dark emesis. Evidence of reflux under fluoroscopy. Previously receiving anticoagulation for atrial fibrillation;Eliquis presently on hold. White count 15.1. Hemoglobin 9.4 stable yesterday was 9.1. BUN 15. Creatinine 1.0. No active bleeding. Small nonbloody emesis thismorning. Passing flatus. nonbloody BM Thursday. Tolerating ice chips/popsicles. Objective - Vital Signs Vital signs: Vital Signs Temp 97.5 F L 07/12/18 04:35 Pulse 74 07/12/18 04:35 Resp 20 07/12/18 04:35 BP 145/55 07/12/18 04:35 Pulse Ox 93 L 07/12/18 04:35 Intake & Output 07/11/18 07/12/18 07/12/18 18:59 06:59 18:59 Intake Total 690 100 Output Total 700 500 Balance -10 -400 Intake: IV 400 Sodium Chloride 0.9% 1, 400 000 ml @ 50 mls/hr IV . Q20H ROM Rx#:[id number] Intake, IV Titration 50 Amount Levofloxacin 250Mg-D5w 50 Pmx 250 mg In Dextrose/ Water 1 50ml.bag @ 50 mls /hr IVPB Q24H ROM Rx#: [id number] Oral 240 100 Output: Urine 700 400 Emesis 100 Other: Voiding Method Incontinent # Bowel Movements 0 # Emeses 2 - Exam General appearance: The patient is alert, oriented, in no acute distress. HET: Head is normocephalic and atraumatic. Pupils are equal and reactive. Oropharynx is clear without lesions. Neck: Supple without lymphadenopathy. Trachea midline. Heart: S1 S2. Regular rate and rhythm. Lungs: No crackles or wheezes are heard. Abdomen: Soft, nontender, nondistended with bowel sounds. No peritoneal signs. No palpable organomegaly or masses. Extremities: Normal skin color and turgor. No cyanosis, rash, ulceration, clubbing, or edema. Radial and pedal pulses are 2/4 bilaterally. Neurological: No focal deficits. Strength and sensation are grossly intact. - Labs CBC & Chem 7: 07/14/18 10:40 07/15/18 18:27 Labs: Abnormal Lab Results - Last 24 Hours (Table) 07/12/18 07/12/18 Range/Units 06:15 06:15 WBC 15.1 H (3.8-10.6) k/uL RBC 2.97 L (4.30-5.90) m/uL Hgb 9.4 L (13.0-17.5) gm/dL Hct 28.6 L (39.0-53.0) % Neutrophils # 12.8 H (1.3-7.7) k/uL Lymphocytes # 0.7 L (1.0-4.8) k/uL Monocytes # 1.2 H (0-1.0) k/uL Chloride 109 H (98-107) mmol/L Glucose 102 H (74-99) mg/dL ALT 73 H (21-72) U/L Creatine Kinase 356 H (55-170) U/L Total Protein 5.9 L (6.3-8.2) g/dL Albumin 3.1 L (3.5-5.0) g/dL Microbiology - Last 24 Hours (Table) 07/07/18 15:07 Blood Culture - Preliminary Blood No Growth after 96 hours Assessment and Plan (1) GI bleed Current Visit: Yes Status: Acute Code(s): K92.2 - GASTROINTESTINAL HEMORRHAGE, UNSPECIFIED SNOMED Code(s): 01377895 (2) Dysphagia Current Visit: Yes Status: Acute Code(s): R13.10 - DYSPHAGIA, UNSPECIFIED SNOMED Code(s): 65398551 (3) Coffee ground emesis Current Visit: Yes Status: Acute Code(s): K92.0 - HEMATEMESIS SNOMED Code( s): 80818553 (4) Acute blood loss anemia Current Visit: Yes Status: Acute Code(s): D62 - ACUTE POSTHEMORRHAGIC ANEMIA SNOMED Code(s): 961331497 (5) Atrial fibrillation Current Visit: Yes Status: Acute Code(s): I48.91 - UNSPECIFIED ATRIAL FIBRILLATION SNOMED Code(s): 49743610 (6) Pelvic fracture Current Visit: Yes Status: Acute Code(s): S32.9XXA - FRACTURE OF UNSP PARTS OF LUMBOSACRAL SPINE AND PELVIS, INIT SNOMED Code(s): 35018219 (7) Ileus Current Visit: Yes Status: Acute Code(s): K56.7 - ILEUS, UNSPECIFIED SNOMED Code(s): 512999441 (8) Status post fall Current Visit: Yes Status: Acute Code(s): Z91.81 - HISTORY OF FALLING SNOMED Code(s): 151417932 (9) Right lower lobe lung mass Current Visit: Yes Status: Acute Code(s): R91.8 - OTHER NONSPECIFIC ABNORMAL FINDING OF LUNG FIELD SNOMED Code(s): 856711687 Plan: 1. Continue Protonix 40 mg twice daily. Inpatient EGD was discussed patient declined. Restart Eliquis if patient continue to decline EGD. Continue monitor CBC. Diet per surgery. Assessment and plan a care discussed with Dr. Engle
[2018-07-12] MEDS ORDERED: IOPAMIDOL-300 CONTRAST 30 ML VIAL (ORAL USE) PO PRN (14:23)
--- NOTE | 2018-07-12 14:44 | P.PN ---
Subjective Progress Note Date: 07/12/18 Principal diagnosis: status post fall, and multiple right-sided rib fractures, acute rhabdomyolysis, hypotension secondary AV block Mobitz type I Amarais 83-year-old white male patient that follows at the [facility], who was brought to the emergency department on 07/06/2018 after sustaining a mechanical fall, patient tripped on a curb and fell onto his right hip. Afterwards patient had difficulty bearing weight, was unable to ambulate, and also had some discomfort in the right anterior ribs and abdomen. He didn't strike his head in the fall, but denied any loss of consciousness. No altered mentation, and no neurological deficits. X-ray of the hip and pelvis revealed right-sided pubic ramus fracture. CT of the chest, abdomen and pelvis showed moderate centrilobular emphysema, areas of interstitial scarring, and a suspicious right lower lobe mass measuring 5.2 cm with an enlarged 2.2 cm subcarinal lymph node. Subtle nondisplaced fractures of the right lateral fourth through seventh ribs. A lobulated 4.7 cm left kidney cyst. 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 CT of the head and cervical spine showed no acute fracture and no acute intracranial abnormality. EKG showed sinus rhythm with right bundle branch block, but no acute ischemic changes. 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 No past medical history of cancer. Denies any recent weight loss, appetite loss, no night sweats, no hemoptysis, no chest wall tenderness. Other medical history includes hypertension, hyperlipidemia, chronic kidney disease, patient used to follow with a electrologist, past history of EtOH abuse currently in remission, chronic back pain, GERD/reflux, depression. Patient's on is at the bedside, and he states patient has been experiencing falls at home, does ambulate with a walker. Currently patient is resting in bed, is having right-sided chest wall discomfort, worse with repositioning, but in no acute distress, pulse ox is 92% on 2 L per nasal cannula, is receiving pain medications, and has been noted to be hypotensive likely related to the effects of the narcotic analgesic. Afebrile. Lung sounds are diminished. No cough, no chest congestion. Patient's total CK was elevated at 2401, and has actually been trending up currently at 5529. Positive troponins of 0.218, 1.110, and 1.660, cardiology is following. Blood work showed a white blood cell count of 13.4, hemoglobin of 10.7, electrolytes were unremarkable, BUN was 28 and creatinine was 2.0 on admission. Plasma lactic acid is 1.0. Serum alcohol was less than 10, urine drug screen was positive for opiates, patient has a prescription for [place]. Were consulted in regards to the right lower lobe lung mass subcarinal adenopathy, suspicious for lung cancer. Patient was reevaluated today on 07/08/2018. Late afternoon yesterday, patient was transferred to the intensive care unit mostly because of persistent hypotension, and bradycardia arrhythmia with second degree AV block, Mobitz type I. His hypotension was felt to be multifactorial, mostly related to blood pressure medications, narcotics for pain control, and possibly relative dehydration. Patient was given fluids did not improve much, hence he was placed overnight on a small dose of norepinephrine. This morning he is off norepinephrine, blood pressure is much better controlled, and the patient is feeling better. He is complaining however of some difficulty swallowing and I recommended a modified barium swallow, patient is having difficulty swallowing solid food and liquids. Pain seems to be better controlled from his rib fractures. Labs were reviewed relatively normal CBC hemoglobin however is 9 electrolytes are normal BUN is up to 36 creatinine is 2.48. CPK which was initially elevated secondary to fall is coming down to 4406 today. Patient is still receiving fluids at 100 mL per hour. Urine output is reasonable without any diuretics at 40 mL per hour. Chest x-ray was reviewed, right lower lobe mass was again noted. And this was also noted on the CT of the chest. Reevaluated today on 07/09/2018, patient remains in the intensive care unit, but he is basically an overflow from selective. No further episodes of hypotension , no further episodes of bradycardia,he does have paroxysmal atrial fibrillation with episodes of second-degree AV block, Mobitz type I. Patient had videoscopic fluoroscopy for evaluation of dysphagia, and he was noted to havepenetration without aspiration of thin liquids however there was a significant reflux in proximal cervical esophagus. And the radiologist recommended esophagogram or evaluation by gastroenterology. Will consult gastroenterology for further evaluation of this issue.apparently his dysphagia has been a chronic issue. Labs today showed a relatively normal electrolytes renal functioning is improving creatinine is down to 1.51 from 2.48 yesterday. WBC count is 8.4 hemoglobin is 8.5, liver enzymes are improving. CPK is down to 941 The patient is seen today 07/10/2018 in follow-up on the selective care unit. He is awake and alert in no acute distress. He is maintaining good O2 saturations in the 90s on 4 L/m per nasal cannula. He is afebrile. Hemodynamically stable. White count 8.5. Hemoglobin 8.6. Creatinine 1.20. Creatinine kinase down to 331. AST 86, ALT 103. He has been initiated on Eliquis per cardiology for paroxysmal atrial fibrillation. Continue to monitor heart rhythm. Reevaluated today on 07/11/2018, patient is doing well from the pulmonary perspective. However continues to have lots of GI symptoms and unable to swallow. I did consult GI again, and hopefully the patient could have for GI evaluation and possible EGD in the next 24 hours. Patient denies any shortness of breath, no cough, no wheezing, denies any fever, no chills, no hemoptysis. His right-sided chest pain related to his fractures seems to be under control. WBC count is 11.4 hemoglobin is 9.1. His electrolytes are normal renal profile is normal and significantly improved over the last few days since admission. CPK is down further to 238. His acute abdominal series today is suggestive of intestinal ileus. However the patient told me that he had a good sized bowel movement earlier today. Hence no need for nasogastric tube and no need for surgical intervention. Not to mention the patient has no abdominal pain and no distention on 07/12/2018 patient seen in follow-up on selective care unit, he is awake and alert, in no acute distress, currently on 2 L per nasal cannula his pulse ox is 92%, afebrile, hemodynamically stable, denies any shortness of breath denies any chest pain. Has been working on incentive spirometer, denies any chest wall discomfort. patient is passing flatus. No nausea, did have an episode of emesis today. No abdominal bloating.Surgical services are following, Objective - Vital Signs Vital signs: Vital Signs Temp 98.5 F 07/12/18 12:00 Pulse 74 07/12/18 13:31 Resp 24 07/12/18 12:00 BP 142/57 07/12/18 12:00 Pulse Ox 92 L 07/12/18 12:00 Intake & Output 07/11/18 07/12/18 07/12/18 18:59 06:59 18:59 Intake Total 690 100 600 Output Total 700 500 320 Balance -10 -400 280 Intake: IV 400 400 Sodium Chloride 0.9% 1, 400 400 000 ml @ 50 mls/hr IV . Q20H ROM Rx#:[id number] Intake, IV Titration 50 Amount Levofloxacin 250Mg-D5w 50 Pmx 250 mg In Dextrose/ Water 1 50ml.bag @ 50 mls /hr IVPB Q24H ROM Rx#: [id number] Oral 240 100 200 Output: Urine 700 400 220 Emesis 100 100 Other: Voiding Method Incontinent Urinal Incontinent # Voids 1 # Bowel Movements 0 # Emeses 2 - Exam GENERAL EXAM: Alert, pleasant, 83-year-old white male 2 L per nasal cannula with a pulse ox of 92%, comfortable in no apparent distress. HEAD: Normocephalic/atraumatic. EYES: Normal reaction of pupils, equal size. Conjunctiva pink, sclera white. NOSE: Clear with pink turbinates. THROAT: No erythema or exudates. NECK: No masses, no JVD, no thyroid enlargement, no adenopathy. CHEST: No chest wall deformity. Symmetrical expansion. LUNGS: Equal air entry with no crackles, wheeze, rhonchi or dullness. CVS: Regular rate and rhythm, normal S1 and S2, no gallops, no murmurs, no rubs ABDOMEN: Soft, nontender. No hepatosplenomegaly, normal bowel sounds, no guarding or rigidity. EXTREMITIES: No clubbing, no edema, no cyanosis, 2+ pulses and upper and lower extremities. MUSCULOSKELETAL: Muscle strength and tone normal. SPINE: No scoliosis or deformity SKIN: No rashes CENTRAL NERVOUS SYSTEM: Alert and oriented -3. No focal deficits, tone is normal in all 4 extremities. PSYCHIATRIC: Alert and oriented -3. Appropriate affect. Intact judgment and insight. - Labs CBC & Chem 7: 07/12/18 06:15 07/12/18 06:15 Labs: Abnormal Lab Results - Last 24 Hours (Table) 07/12/18 07/12/18 Range/Units 06:15 06:15 WBC 15.1 H (3.8-10.6) k/uL RBC 2.97 L (4.30-5.90) m/uL Hgb 9.4 L (13.0-17.5) gm/dL Hct 28.6 L (39.0-53.0) % Neutrophils # 12.8 H (1.3-7.7) k/uL Lymphocytes # 0.7 L (1.0-4.8) k/uL Monocytes # 1.2 H (0-1.0) k/uL Chloride 109 H (98-107) mmol/L Glucose 102 H (74-99) mg/dL ALT 73 H (21-72) U/L Creatine Kinase 356 H (55-170) U/L Total Protein 5.9 L (6.3-8.2) g/dL Albumin 3.1 L (3.5-5.0) g/dL Microbiology - Last 24 Hours (Table) 07/07/18 15:07 Blood Culture - Preliminary Blood No Growth after 96 hours Assessment and Plan Plan: Assessment: 1 status post fall and multiple right-sided rib fractures. 2 dysphagia, recommended GI evaluation, patient had abnormal modified barium swallow. 3 acute rhabdomyolysis and acute kidney injury significantly improved based on the labs today. 4 right lower lobe lung mass strongly suspicious for bronchogenic carcinoma, will definitely need further workup and tissue diagnosis on outpatient basis unless his hospital course will be longer and the patient could have CT-guided needle biopsy. 5 severe COPD currently inactive. 6 [id number] smoking history quit in 1979 7 history of depression. 8 chronic atrial fibrillation 9 second degree AV block Mobitz type I, being addressed by cardiology. 10 acute urinary tract infection Plan: Continue encouraging deep breathing and coughing, patient is stable, no difficulty breathing, denies any pain. Continue weaning FiO2. Continue bronchodilators, continue antibiotics. from pulmonary perspective patient can be considered for discharge to subacute rehab, patient is insisting on going home, however he lives by himself, and there is no home to help him. His son wants the patient to go to the rehab facility. no further recommendations, follow-up in the pulmonary clinic with Dr. Tai in 7-10 days, and at that time plan for the right lower lobe lung mass biopsy will be discussed I performed a history & physical examination of the patient and discussed their management with my nurse practitioner, Sheri Rios. I reviewed the nurse practitioner's note and agree with the documented findings and plan of care. Lung sounds are positive for diminished. The findings and the impression was discussed with the patient. I attest to the documentation by the nurse practitioner. Time with Patient: Less than 30
[2018-07-12] MEDS: LEVOFLOXACIN 250MG-D5W PMX 250 MG in DEXTROSE/WATER 1 50ML.BAG IVPB SCH (15:50)
[2018-07-12] MEDS: MORPHINE SULFATE 2 MG/ML SYRINGE IVP PRN (17:47)
[2018-07-12] MEDS: METOCLOPRAMIDE 5 MG/ML 2 ML VIAL IVP SCH ×2 (17:49→23:07)
--- NOTE | 2018-07-12 20:08 | PN ---
PROGRESS NOTE DATE OF SERVICE: 07/12/2018 This 83-year-old gentleman was admitted with fall and acute pelvis fracture also had rhabdomyolysis. The patient also complaining of ileus which is treated symptomatically with surgery the patient closely monitored. Patient also had significant pain. Also multiple consultants are following the patient closely. PAST MEDICAL HISTORY: Reviewed. REVIEW OF SYSTEMS: CARDIOVASCULAR: No angina or palpitations. RESPIRATORY: As mentioned earlier. GI: As mentioned earlier. : No dysuria. CURRENT MEDICATIONS ARE: 1. [place] 7.5 q.6h p.r.n. 2. DuoNeb q.i.d. and p.r.n. 3. Dulcolax 5 mg daily. 4. Colace 100 mg b.i.d. 5. Levaquin 500 mg IV q.24 hours. 6. Lidoderm. 7. Melatonin 3 mg. 8. Reglan. 10.Narcan. 11.Protonix. 12.Flomax. PHYSICAL EXAM: Patient is alert, oriented x3. Blood pressure 142/60, respirations 16, temperature 98.2, pulse ox 94% on room air. HEENT: Conjunctivae normal. NECK: No jugular venous distention. Cardiovascular: S1, S2 muffled. Respiratory: Breath sounds diminished in the bases. Few scattered rhonchi and crackles. ABDOMEN: Soft, obese. Bowel sounds diminished. Legs are no edema. No swelling. CENTRAL NERVOUS SYSTEM: No focal deficits. LABS: WBC 15.9, hemoglobin 9.4, sodium 142, potassium 3.7. ASSESSMENT: 1. Fall and acute pelvis fracture, right superior inferior pubic rami fracture with severe pain and gait dysfunction. 2. Acute rhabdomyolysis. 3. Paroxysmal atrial fibrillation. 4. Abdominal distention, possibly ileus. 5. Severe hypotension, monitor in the ICU, possibly secondary to dehydration, multifactorial. 6. Possible acute right-sided pneumonia possibly gram-negative. 7. Elevated troponin 1.170 indeterminate. 8. Myocardial infarction, unlikely per Cardiology. 9. Fever, elevated WBC possible urinary tract infection present on admission, not related to [place] catheter. 10.Increased creatinine with possible acute renal failure with baseline chronic kidney disease stage III. 11.Abdominal distention. 12.Anemia, normocytic anemia of chronic disease. 13.Increased AST. 14.Gastroesophageal reflux disease. 15.Hypertension. 16.History of degenerative joint disease. 17.History of prostate disorder. 18.History of gout. 19.History of asbestos exposure. 20.History of right lung cancer. 21.History of adenoidectomy. 22.History of major depression. 23.History of nicotine dependence. 24.NO CODE, NO CPR, NO VENT. RECOMMENDATIONS AND DISCUSSION: Recommend to continue current medications, management and symptomatic treatment. Otherwise closely follow surgery. Continue with current medications. The patient will continue with IV fluids at 50 mL/hour and the creatinine kinase is improved to 356 today. PT/OT evaluation. Pain management. Diet per Surgery. Guarded prognosis. Possible ECF rehab eventually. Further recommendations to follow. MMODL / IJN: [id number] / JENNIFER
[2018-07-12] MEDS: LORazepam 2 MG/ML INJ IV PRN (22:45)
[2018-07-13] MEDS: SODIUM CHLORIDE 0.9% 1,000 ML IV SCH ×2 (06:21→20:20)
[2018-07-13] MEDS: METOCLOPRAMIDE 5 MG/ML 2 ML VIAL IVP SCH ×3 (06:22→17:52)
[2018-07-13] MEDS: IPRATROPIUM-ALBUTEROL 3 ML NEB INHALATION SCH ×3 (09:25→22:05)
--- NOTE | 2018-07-13 10:16 | P.PN ---
Subjective Progress Note Date: 07/13/18 CHIEF COMPLAINT: Fall HISTORY OF PRESENT ILLNESS: Patient examined at the bedside. Patient denies abdominal pain. Reports passing a lot of flatus this morning. No BM. PHYSICAL EXAM: VITAL SIGNS: Currently stable. GENERAL: Well-developed in no acute distress. HEENT: No sclera icterus. Extraocular movements grossly intact. Moist buccal mucosa. Head is atraumatic, normocephalic. Hears conversational speech. No nasal drainage. NECK: Supple without lymphadenopathy. CHEST: Non-labored respirations and equal bilateral excursions. CARDIOVASCULAR: Regular rate with regular rhythm. Palpable 2+ radial pulses. ABDOMEN: Soft. Nondistended. Nontender. MUSCULOSKELETAL: No clubbing, cyanosis or edema. NEUROLOGIC: No focal or lateralizing signs. Cranial nerves II through XII grossly intact. PSYCH: Appropriate affect. Alert and oriented to person, place and time. SKIN: Well perfused. Good skin turgor. Large amount of ecchymosis to right chest wall. ASSESSMENT: 1. Traumatic fall 2. Right-sided pubic ramus fracture 3. Nondisplaced fracture of the right lateral fourth through seventh rib 4. Acute rhabdomyolysis 5. Dysphagia 6. Ileus PLAN: 1. Discontinue NG tube 2. Start clear liquid diet. Patient instructed to start slowly with liquids 3. Continue reglan Nurse practitioner note has been reviewed by physician. Signing provider agrees with the documented findings, assessment, and plan of care. Objective - Vital Signs Vital signs: Vital Signs Temp 97.8 F 07/13/18 07:26 Pulse 76 07/13/18 07:26 Resp 16 07/13/18 08:00 BP 146/67 07/13/18 07:26 Pulse Ox 95 07/13/18 07:26 Intake & Output 07/12/18 07/13/18 07/13/18 18:59 06:59 18:59 Intake Total 600 Output Total 670 475 Balance -70 -475 Weight 83.5 kg Intake: IV 400 Sodium Chloride 0.9% 1, 400 000 ml @ 50 mls/hr IV . Q20H ROM Rx#:[id number] Oral 200 Output: Gastric Drainage 200 225 Urine 370 250 Emesis 100 Other: Voiding Method Urinal Urinal Urinal Incontinent # Voids 1 1 - Labs CBC & Chem 7: 07/12/18 06:15 07/12/18 06:15 Labs: Microbiology - Last 24 Hours (Table) 07/07/18 15:07 Blood Culture - Preliminary Blood No Growth after 120 hours Assessment and Plan (1) Ileus Current Visit: Yes Status: Acute Code(s): K56.7 - ILEUS, UNSPECIFIED SNOMED Code(s): 266597919
[2018-07-13] MEDS: TAMSULOSIN 0.4 MG CAP.ER.24H PO SCH (10:17)
[2018-07-13] MEDS: DOCUSATE 100 MG CAP PO SCH ×2 (10:17→20:10)
[2018-07-13] MEDS: LIDOCAINE 5% PATCH TOPICAL SCH (10:17)
[2018-07-13] MEDS: PANTOPRAZOLE 40 MG/10 ML VIAL IVP SCH ×2 (10:18→20:20)
--- NOTE | 2018-07-13 14:09 | P.PN ---
Subjective Progress Note Date: 07/13/18 Principal diagnosis: Status post fall and multiple right-sided rib fractures, acute rhabdomyolosis, hypotension secondary to AV block, Mobitz type I. This 83-year-old white male patient that follows at the [facility], who was brought to the emergency department on 07/06/2018 after sustaining a mechanical fall, patient tripped on a curb and fell onto his right hip. Afterwards patient had difficulty bearing weight, was unable to ambulate, and also had some discomfort in the right anterior ribs and abdomen. He didn't strike his head in the fall, but denied any loss of consciousness. No altered mentation, and no neurological deficits. X-ray of the hip and pelvis revealed right-sided pubic ramus fracture. CT of the chest, abdomen and pelvis showed moderate centrilobular emphysema, areas of interstitial scarring, and a suspicious right lower lobe mass measuring 5.2 cm with an enlarged 2.2 cm subcarinal lymph node. Subtle nondisplaced fractures of the right lateral fourth through seventh ribs. A lobulated 4.7 cm left kidney cyst. 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 CT of the head and cervical spine showed no acute fracture and no acute intracranial abnormality. EKG showed sinus rhythm with right bundle branch block, but no acute ischemic changes. 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 No past medical history of cancer. Denies any recent weight loss, appetite loss, no night sweats, no hemoptysis, no chest wall tenderness. 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 Patient's on is at the bedside, and he states patient has been experiencing falls at home , does ambulate with a walker. Currently patient is resting in bed, is having right-sided chest wall discomfort, worse with repositioning, but in no acute distress, pulse ox is 92% on 2 L per nasal cannula, is receiving pain medications, and has been noted to be hypotensive likely related to the effects of the narcotic analgesic. Afebrile. Lung sounds are diminished. No cough, no chest congestion. Patient's total CK was elevated at 2401, and has actually been trending up currently at 5529. Positive troponins of 0.218, 1.110, and 1.660, cardiology is following. Blood work showed a white blood cell count of 13.4, hemoglobin of 10.7, electrolytes were unremarkable, BUN was 28 and creatinine was 2.0 on admission. Plasma lactic acid is 1.0. Serum alcohol was less than 10, urine drug screen was positive for opiates, patient has a prescription for [place]. Were consulted in regards to the right lower lobe lung mass subcarinal adenopathy, suspicious for lung cancer. Patient was reevaluated today on 07/08/2018. Late afternoon yesterday, patient was transferred to the intensive care unit mostly because of persistent hypotension, and bradycardia arrhythmia with second degree AV block, Mobitz type I. His hypotension was felt to be multifactorial, mostly related to blood pressure medications, narcotics for pain control, and possibly relative dehydration. Patient was given fluids did not improve much, hence he was placed overnight on a small dose of norepinephrine. This morning he is off norepinephrine, blood pressure is much better controlled, and the patient is feeling better. He is complaining however of some difficulty swallowing and I recommended a modified barium swallow, patient is having difficulty swallowing solid food and liquids. Pain seems to be better controlled from his rib fractures. Labs were reviewed relatively normal CBC hemoglobin however is 9 electrolytes are normal BUN is up to 36 creatinine is 2.48. CPK which was initially elevated secondary to fall is coming down to 4406 today. Patient is still receiving fluids at 100 mL per hour. Urine output is reasonable without any diuretics at 40 mL per hour. Chest x-ray was reviewed, right lower lobe mass was again noted. And this was also noted on the CT of the chest. Reevaluated today on 07/09/2018, patient remains in the intensive care unit, but he is basically an overflow from selective. No further episodes of hypotension , no further episodes of bradycardia,he does have paroxysmal atrial fibrillation with episodes of second-degree AV block, Mobitz type I. Patient had videoscopic fluoroscopy for evaluation of dysphagia, and he was noted to havepenetration without aspiration of thin liquids however there was a significant reflux in proximal cervical esophagus. And the radiologist recommended esophagogram or evaluation by gastroenterology. Will consult gastroenterology for further evaluation of this issue.apparently his dysphagia has been a chronic issue. Labs today showed a relatively normal electrolytes renal functioning is improving creatinine is down to 1.51 from 2.48 yesterday. WBC count is 8.4 hemoglobin is 8.5, liver enzymes are improving. CPK is down to 941 The patient is seen today 07/10/2018 in follow-up on the selective care unit. He is awake and alert in no acute distress. He is maintaining good O2 saturations in the 90s on 4 L/m per nasal cannula. He is afebrile. Hemodynamically stable. White count 8.5. Hemoglobin 8.6. Creatinine 1.20. Creatinine kinase down to 331. AST 86, ALT 103. He has been initiated on Eliquis per cardiology for paroxysmal atrial fibrillation. Continue to monitor heart rhythm. Reevaluated today on 07/11/2018, patient is doing well from the pulmonary perspective. However continues to have lots of GI symptoms and unable to swallow. I did consult GI again, and hopefully the patient could have for GI evaluation and possible EGD in the next 24 hours. Patient denies any shortness of breath, no cough, no wheezing, denies any fever, no chills, no hemoptysis. His right-sided chest pain related to his fractures seems to be under control. WBC count is 11.4 hemoglobin is 9.1. His electrolytes are normal renal profile is normal and significantly improved over the last few days since admission. CPK is down further to 238. His acute abdominal series today is suggestive of intestinal ileus. However the patient told me that he had a good sized bowel movement earlier today. Hence no need for nasogastric tube and no need for surgical intervention. Not to mention the patient has no abdominal pain and no distention on 07/12/2018 patient seen in follow-up on selective care unit, he is awake and alert, in no acute distress, currently on 2 L per nasal cannula his pulse ox is 92%, afebrile, hemodynamically stable, denies any shortness of breath denies any chest pain. Has been working on incentive spirometer, denies any chest wall discomfort. patient is passing flatus. No nausea, did have an episode of emesis today. No abdominal bloating.Surgical services are following, The patient is seen today 07/13/2017 in follow-up on the selective care unit. He is awake and alert in no acute distress. He is currently resting comfortably in bed. Maintaining O2 saturations in the mid 90s on 3 L/m per nasal cannula. Blood culture reveals no growth. White count 15.1. Hemoglobin 9.4. Creatinine 1.07. Currently on bronchodilators and Levaquin. Continues to work with the incentive spirometer. Objective - Vital Signs Vital signs: Vital Signs Temp 99.2 F 07/13/18 11:35 Pulse 76 07/13/18 12:53 Resp 18 07/13/18 11:35 BP 150/72 07/13/18 11:35 Pulse Ox 94 L 07/13/18 11:35 Intake & Output 07/12/18 07/13/18 07/13/18 18:59 06:59 18:59 Intake Total 600 Output Total 670 475 375 Balance -70 -475 -375 Weight 83.5 kg 83.5 kg Intake: IV 400 Sodium Chloride 0.9% 1, 400 000 ml @ 50 mls/hr IV . Q20H ROM Rx#:[id number] Oral 200 Output: Gastric Drainage 200 225 200 Urine 370 250 175 Emesis 100 Other: Voiding Method Urinal Urinal Urinal # Voids 1 1 1 - Exam GENERAL EXAM: Alert, frail 83-year-old, fairly comfortable in no apparent distress. On 3 L nasal cannula HEAD: Normocephalic. EYES: Normal reaction of pupils, equal size. NOSE: Clear with pink turbinates. THROAT: No erythema or exudates. NECK: No masses, no JVD. CHEST: No chest wall deformity. Tenderness to palpation. LUNGS: Equal air entry with no crackles, wheeze, rhonchi or dullness. CVS: S1 and S2 normal with an audible murmur, irregular rhythm. ABDOMEN: No hepatosplenomegaly, normal bowel sounds, no guarding or rigidity. SPINE: No scoliosis or deformity SKIN: No rashes CENTRAL NERVOUS SYSTEM: No focal deficits, tone is normal in all 4 extremities. EXTREMITIES: There is no peripheral edema. No clubbing, no cyanosis. Peripheral pulses are intact. - Labs CBC & Chem 7: 07/12/18 06:15 07/12/18 06:15 Labs: Microbiology - Last 24 Hours (Table) 07/07/18 15:07 Blood Culture - Preliminary Blood No Growth after 120 hours Assessment and Plan Assessment: Impression: 1 hypotension secondary to blood pressure medications which are presently on hold, narcotics, and the dose has been cut down, and relative dehydration. resolved. 2 multiple rib fractures secondary to fall, fourth through seventh ribs on the right side. 3 acute pubic rami fracture secondary to fall. being followed by orthopedics 4 acute rhabdomyolysis and acute kidney injury related to rhabdomyolysis and also related to hypotension.improving with improved CPK level and improved creatinine/renal profile today. 5 right lung mass strongly suspicious for bronchogenic carcinoma, this will need to be addressed on an outpatient basis, may eventually consider CT-guided needle biopsy by interventional radiology. The mass seems to be abutting the right pleural surface. It is associated with subcarinal lymphadenopathy. 6 COPD, currently stable and inactive. 7 history of depression 8 chronic back pain 9 [id number] smoker, quit in 1979. 10 elevated troponin, nonspecific, being addressed by cardiology on the case. 11 dysphagia, Will arrange for GI consultation since the patient has abnormal modified barium swallow. Recommendation: The patient was seen and evaluated by Dr. Lombardo. He is improving from the pulmonary standpoint. We'll continue to titrate down the FiO2 as tolerated. Continue bronchodilators. Continue with the incentive spirometer. Discharge planning is in place. Probable transferred to [facility]. He and his family are again informed of the need for workup of the right lung mass. CT-guided FNA versus bronchial with biopsy which will occur in the outpatient setting once he is recovered from this initial fall. I, the cosigning physician, performed a history & physical examination of the patient. Lungs sounds with some crackles in the right lung base. Maintaining good O2 saturations in the 90s on 3 L/m per nasal cannula. I discussed the assessment and plan of care with my nurse practitioner, Cassidy Rincon. I attest to the above note as dictated by her.
[2018-07-13] MEDS: LEVOFLOXACIN 250MG-D5W PMX 250 MG in DEXTROSE/WATER 1 50ML.BAG IVPB SCH (17:01)
--- NOTE | 2018-07-13 17:08 | P.PN ---
Subjective Progress Note Date: 07/13/18 Principal diagnosis: Dysphagia Admitted status post fall acute pelvic fracture rhabdomyolysis being followed by general surgery for ileus. Evaluated for dysphagia nausea dark emesis. Evidence of reflux under fluoroscopy. Previously receiving anticoagulation for atrial fibrillation;Eliquis presently on hold. no CBC today. No active bleeding. nursing reports nasogastric decompression last night about 700 mL of bilious return. This morning he is tolerating clear liquids. No complaints. Objective - Vital Signs Vital signs: Vital Signs Temp 98.4 F 07/13/18 16:00 Pulse 84 07/13/18 16:00 Resp 16 07/13/18 16:00 BP 150/56 07/13/18 16:00 Pulse Ox 94 L 07/13/18 16:00 Intake & Output 07/12/18 07/13/18 07/13/18 18:59 06:59 18:59 Intake Total 600 240 Output Total 670 475 375 Balance -70 -475 -135 Weight 83.5 kg 83.5 kg Intake: IV 400 Sodium Chloride 0.9% 1, 400 000 ml @ 50 mls/hr IV . Q20H ROM Rx#:[id number] Oral 200 240 Output: Gastric Drainage 200 225 200 Urine 370 250 175 Emesis 100 Other: Voiding Method Urinal Urinal Urinal # Voids 1 1 1 - Exam General appearance: The patient is alert, oriented, in no acute distress. HET: Head is normocephalic and atraumatic. Pupils are equal and reactive. Oropharynx is clear without lesions. Neck: Supple without lymphadenopathy. Trachea midline. Heart: S1 S2. Regular rate and rhythm. Lungs: No crackles or wheezes are heard. Abdomen: Soft, nontender, nondistended with hypoactive bowel sounds. No peritoneal signs. No palpable organomegaly or masses. Extremities: Normal skin color and turgor. No cyanosis, rash, ulceration, clubbing, or edema. Radial and pedal pulses are 2/4 bilaterally. Neurological: No focal deficits. Strength and sensation are grossly intact. - Labs CBC & Chem 7: 07/14/18 10:40 07/15/18 18:27 Labs: Microbiology - Last 24 Hours (Table) 07/07/18 15:07 Blood Culture - Preliminary Blood No Growth after 120 hours Assessment and Plan (1) GI bleed Current Visit: Yes Status: Acute Code(s): K92.2 - GASTROINTESTINAL HEMORRHAGE, UNSPECIFIED SNOMED Code(s): 91610553 (2) Dysphagia Current Visit: Yes Status: Acute Code(s): R13.10 - DYSPHAGIA, UNSPECIFIED SNOMED Code(s): 75118798 (3) Coffee ground emesis Current Visit: Yes Status: Acute Code(s): K92.0 - HEMATEMESIS SNOMED Code( s): 03673476 (4) Acute blood loss anemia Current Visit: Yes Status: Acute Code(s): D62 - ACUTE POSTHEMORRHAGIC ANEMIA SNOMED Code(s): 691458570 (5) Atrial fibrillation Current Visit: Yes Status: Acute Code(s): I48.91 - UNSPECIFIED ATRIAL FIBRILLATION SNOMED Code(s): 20515116 (6) Pelvic fracture Current Visit: Yes Status: Acute Code(s): S32.9XXA - FRACTURE OF UNSP PARTS OF LUMBOSACRAL SPINE AND PELVIS, INIT SNOMED Code(s): 95285979 (7) Ileus Narrative/Plan: Worsening ileus nausea vomiting last night requiring NGT decompression last night general surgery following. Current Visit: Yes Status: Acute Code(s): K56.7 - ILEUS, UNSPECIFIED SNOMED Code(s): 747617185 (8) Status post fall Current Visit: Yes Status: Acute Code(s): Z91.81 - HISTORY OF FALLING SNOMED Code(s): 307664169 (9) Right lower lobe lung mass Current Visit: Yes Status: Acute Code(s): R91.8 - OTHER NONSPECIFIC ABNORMAL FINDING OF LUNG FIELD SNOMED Code(s): 505562815 Plan: 1. Continue Protonix 40 mg twice daily. Hold anticoagulation. Extensive discussion held at bedside with family explaining the recommendations for EGD and timing based on clinical course. Patient is now agreeable for EGD. EGD tomorrow if agreeable with pulmonary and if patients ileus does not worsen. Continue monitor CBC. The design engineer products has discussed the risks, benefits and alternative therapies for the above-mentioned procedure and for both sedation/analgesia as well as necessary blood product administration, if indicated, as they pertain to this patient. The patient has indicated understanding and acceptance of the risks and procedures discussed. Assessment and plan a care discussed with Dr. Engle
--- NOTE | 2018-07-13 17:44 | XR ---
EXAMINATION: XR chest 1V portable DATE AND TIME: 07/13/2018 5:09 PM CLINICAL INDICATION: PHH; pneumonia TECHNIQUE: Departmental protocol COMPARISON: 07/08/2018 FINDINGS: There is marked interval worsening in the lung inflation pattern when compared to the prior study. Th is is particularly so on the right where there is increasing right pleural effusion and diffuse inter stitial and alveolar phase pulmonary edema evident. Cannot exclude concurrent right-sided pneumonia. On the left, mild interstitial phase pulmonary edema pattern. No mediastinal shift. No definite abnormal gas collections. IMPRESSION: INTERVAL WORSENING, PARTICULARLY ON THE RIGHT.
--- NOTE | 2018-07-13 20:34 | PN ---
PROGRESS NOTE DATE OF SERVICE: 07/13/2018 This 83-year-old gentleman admitted with acute pelvis fracture also had rhabdomyolysis. The patient also had ileus, multifactorial. The patient had upper gastrointestinal bleeding also. The patient had NG tube inserted, but taken out but because of lack of improvement and repeat symptoms, NG tube was inserted. Surgery and gastroenterology are following the patient closely. Otherwise, at this time, multiple consultants are following the patient closely at this time. As far as the rhabdomyolysis is concerned, the creatinine kinase is improved significantly. PT/OT evaluated the patient for possible ECF rehab. PAST MEDICAL HISTORY: Reviewed. REVIEW OF SYSTEMS: CARDIOVASCULAR: No angina or palpitations. RESPIRATORY: As mentioned earlier. GI: As mentioned earlier. : No dysuria or hematuria. CENTRAL NERVOUS SYSTEM: As mentioned earlier. CURRENT MEDICATIONS ARE: 1. [place] 7.5 mg. 2. DuoNeb q.i.d. and p.r.n. 3. Dulcolax 5 mg. 4. Colace 100 mg p.o. b.i.d. 5. Levaquin 250 mg every 24 hours. 7. Ativan. 8. Melatonin 3 mg. 9. Reglan. 10.Magnesium. 11.Narcan. 12.Morphine. 13.Zofran. 14.Protonix. 15.Flomax. PHYSICAL EXAM: Patient is alert, oriented x2. Pulse 84. Blood pressure 150/56, respiration 16 , temperature 98.4, pulse ox 94% on 3 L. HEENT: Conjunctivae normal. Oral mucosa moist. Neck is no jugular venous distention. No carotid bruit. No lymph node enlargement. CARDIOVASCULAR: S1, S2. RESPIRATORY: Breath sounds diminished in the bases. ABDOMEN: Soft. LEGS: No edema. No swelling. CENTRAL NERVOUS SYSTEM: Movements are painful. Diffusely weak. LAB INVESTIGATIONS: Lab investigations at this time shows WBC 15.1, hemoglobin 9.4. Sodium 141, potassium 3.7. ASSESSMENT: 1. Fall and acute pelvis fracture, right superior and inferior pubic ramus, severe pain and gait dysfunction. 2. Acute rhabdomyolysis, improving. 3. Paroxysmal atrial fibrillation. 4. Increased WBC. 5. Abdominal distention and possibly ileus status post NG tube x2. 6. Severe hypotension monitored in ICU, possibly secondary dehydration, multifactorial. 7. Possible acute right-sided pneumonia, possibly gram-negative. 8. Elevated troponin 1.173. Indeterminate. 9. Myocardial infarction unlikely per Cardiology. 10.Fever, elevated WBC, present on admission. 11.Urinary tract infection not related to [place] catheter. 12.Increased creatinine with possible acute renal failure with baseline chronic kidney stage III. 13.Abdominal distention. 14.Anemia, normocytic anemia of chronic disease. 15.Increased AST. 16.Gastroesophageal reflux disease. 17.Hypertension. 18.History of degenerative joint disease. 19.History of prostate disorder. 20.History of gout. 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 22.History of right lung cancer. 23.History of adenoidectomy. 24.History of major depression. 25.History of nicotine dependence. 26.NO CODE, NO CPR, NO VENT. RECOMMENDATIONS AND DISCUSSION: This 83-year-old gentleman who presented with multiple complex medical issues, we will monitor the patient closely, continue the current medications, continue with symptomatic treatment. Otherwise, at this time, I recommend continue with current medications. We will monitor the patient closely. Acute abdomen series was reviewed. I would recommend a portable chest x-ray for review. Other than that, closely follow with multiple consultants and guarded prognosis. Discussed with family at length and once the patient is stabilized, we will send the patient to [facility] BEDS AT THE [facility] for rehabilitation as mentioned earlier. The patient has multiple complex medical issues and further recommendations to follow. SHOBHA / ALEISHA: [id number] / MTDD
[2018-07-14] MEDS: METOCLOPRAMIDE 5 MG/ML 2 ML VIAL IVP SCH ×5 (03:19→23:35)
[2018-07-14] MEDS: IPRATROPIUM-ALBUTEROL 3 ML NEB INHALATION SCH ×3 (07:43→19:17)
[2018-07-14] MEDS: IOPAMIDOL-300 CONTRAST 30 ML VIAL (ORAL USE) PO PRN ×2 (08:42→09:35)
[2018-07-14] MEDS: TAMSULOSIN 0.4 MG CAP.ER.24H PO SCH (08:46)
[2018-07-14] MEDS: DOCUSATE 100 MG CAP PO SCH ×2 (08:46→21:40)
[2018-07-14] MEDS: PANTOPRAZOLE 40 MG/10 ML VIAL IVP SCH ×2 (09:06→21:43)
[2018-07-14] MEDS: LIDOCAINE 5% PATCH TOPICAL SCH (09:06)
--- NOTE | 2018-07-14 09:28 | P.PN ---
Subjective Progress Note Date: 07/14/18 CHIEF COMPLAINT: Fall HISTORY OF PRESENT ILLNESS: Patient examined at the bedside. Patients NG tube was discontinued yesterday. He was tolerating clear liquids until yesterday evening when he started throwing up again. NG tube was reinserted per Dr. Wilks. Patient reports passing flatus this morning. Denies BM. Denies abdominal pain. PHYSICAL EXAM: VITAL SIGNS: Currently stable. GENERAL: Well-developed in no acute distress. HEENT: No sclera icterus. Extraocular movements grossly intact. Moist buccal mucosa. Head is atraumatic, normocephalic. Hears conversational speech. No nasal drainage. NECK: Supple without lymphadenopathy. CHEST: Non-labored respirations and equal bilateral excursions. CARDIOVASCULAR: Regular rate with regular rhythm. Palpable 2+ radial pulses. ABDOMEN: Soft. Nondistended. Nontender. MUSCULOSKELETAL: No clubbing, cyanosis or edema. NEUROLOGIC: No focal or lateralizing signs. Cranial nerves II through XII grossly intact. PSYCH: Appropriate affect. Alert and oriented to person, place and time. SKIN: Well perfused. Good skin turgor. Large amount of ecchymosis to right chest wall. ASSESSMENT: 1. Traumatic fall 2. Right-sided pubic ramus fracture 3. Nondisplaced fracture of the right lateral fourth through seventh rib 4. Acute rhabdomyolysis 5. Dysphagia 6. Ileus PLAN: 1. NPO 2. Continue NG to LIS 3. Continue Reglan 4. Obtain CT abdomen/pelvis with contrast. await results Nurse practitioner note has been reviewed by physician. Signing provider agrees with the documented findings, assessment, and plan of care. Objective - Vital Signs Vital signs: Vital Signs Temp 98.3 F 07/14/18 08:00 Pulse 72 07/14/18 08:00 Resp 20 07/14/18 08:00 BP 146/62 07/14/18 08:00 Pulse Ox 93 L 07/14/18 08:00 Intake & Output 07/13/18 07/14/18 07/14/18 18:59 06:59 18:59 Intake Total 815 600 Output Total 575 1250 Balance 240 -650 Weight 83.5 kg 80 kg Intake: IV 450 600 Levofloxacin 250Mg-D5w 50 Pmx 250 mg In Dextrose/ Water 1 50ml.bag @ 50 mls /hr IVPB Q24H ROM Rx#: [id number] Sodium Chloride 0.9% 1, 400 600 000 ml @ 50 mls/hr IV . Q20H [facility] Rx#:[id number] Oral 365 Output: Gastric Drainage 200 700 Urine 375 250 Emesis 300 Other: Voiding Method Urinal Urinal # Voids 1 4 - Labs CBC & Chem 7: 07/12/18 06:15 07/12/18 06:15 Labs: Microbiology - Last 24 Hours (Table) 07/07/18 15:07 Blood Culture - Final Blood No Growth after 144 hours Assessment and Plan (1) Ileus Current Visit: Yes Status: Acute Code(s): K56.7 - ILEUS, UNSPECIFIED SNOMED Code(s): 678692947
[2018-07-14 11:18] LABS: Basophils # (A) 0.1 k/uL (0-0.2); Basophils % (A) 0 %; Eosinophils # (A) 0.2 k/uL (0-0.7); Eosinophils % (A) 1 %; HCT 30.4 % (39.0-53.0); HGB 9.7 gm/dL (13.0-17.5); Hypochromasia Slight; Lymphocytes # (A) 0.7 k/uL (1.0-4.8); Lymphocytes % (A) 5 %; MCH 31.2 pg (25.0-35.0); MCV 97.5 fL (80.0-100.0); Mean Platelet Volume 6.3; Monocytes # (A) 1.2 k/uL (0-1.0); Monocytes % (A) 8 %; Neutrophils # (A) 12.2 k/uL (1.3-7.7); Neutrophils % (A) 84 %; Platelet Count 333 k/uL (150-450); RBC 3.12 m/uL (4.30-5.90); RDW 14.6 % (11.5-15.5); WBC 14.6 k/uL (3.8-10.6)
[2018-07-14 11:26] LABS: Calcium 8.4 mg/dL (8.4-10.2); Potassium 3.2 mmol/L (3.5-5.1)
--- NOTE | 2018-07-14 11:53 | CT ---
EXAMINATION TYPE: CT abdomen pelvis wo con DATE OF EXAM: 07/14/2018 COMPARISON: 07/10/2018 HISTORY: Possible ileus or small bowel obstruction. Abdominal pain. CT DLP: 638.9 mGycm Automated exposure control for dose reduction was used. TECHNIQUE: Helical acquisition of images was performed from the lung bases through the pelvis. FINDINGS: Lack of intravenous contrast limits evaluation of the solid viscera. LUNG BASES: There are at least moderate pleural effusions with associated bibasilar airspace disease. Masslike right basilar consolidation measuring at least 4.5 x 3.9 cm represents the known right lowe r lobe pulmonary mass seen on the prior of 07/06/2018. LIVER/GB: Again there is approximately 1.1 cm right inferior hepatic lobe lesion with central fluid a ttenuation and 6. This may represent a cyst although is incompletely characterized. Gallbladder surgi annalee absent. PANCREAS: There is diffuse haziness of the mesentery including peripancreatic mesentery. Mild peripan creatic atrophy is seen. No ductal dilatation is appreciated. SPLEEN: No significant abnormality is seen. ADRENALS: No significant abnormality is seen. KIDNEYS: No hydronephrosis of either kidney. Retroaortic left renal vein is again noted. The previous ly seen punctate right renal calculus is no longer visualized. Again there is a suspected bilobed lef t renal cyst measuring approximately 4.7 cm that should be confirmed with ultrasound or CT with contr ast. FREE AIR: No free air is visualized PELVIC ADENOPATHY: No greater than 1 cm short axis lymph node is seen in the abdomen or pelvis given the limitation of lack of intravenous contrast. 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 The previously seen nondisplaced right sacral alar fracture is also redemo nstrated. Cortical irregularities along the anterior fifth, sixth, and seventh ribs likely represent nondisplaced acute fractures. Healing right-sided pubic rami fractures are again noted. BOWEL: Enteric tube is present. Contrast readily extends throughout the entirety of the bowel. Bowel is nondilated. There is haustral thickening throughout the nondilated colon diffusely. Numerous sigm oid and descending colonic diverticula are present without pericolonic fat stranding. No significant fat stranding surrounding the colon or small bowel. There is a small hiatal hernia present. OTHER: There is a calcified chronic infrarenal abdominal aortic dissection and ectasia with ectasia m easuring up to 2.9 x 2.5 cm in transverse by anterior posterior dimension. Nonspecific presacral tabatha a may relate to the anasarca and mesenteric congestion. IMPRESSION: 1. NO EVIDENCE OF BOWEL OBSTRUCTION OR ILEUS CONTRAST READILY EXTENDS TO THE ENTIRETY OF THE COLON TO THE RECTUM AND NO DILATED BOWEL IS SEEN. HOWEVER THERE IS MUCOSAL THICKENING THROUGHOUT THE ENTIR ETY OF THE COLON SUGGESTING MILD ACUTE UNCOMPLICATED PANCOLITIS. C. DIFFICILE COULD BE CONSIDERED GIV EN THE DIFFUSE INVOLVEMENT. 2. AGAIN FINDINGS ARE SUSPICIOUS FOR A LARGE RIGHT LOWER LOBE PULMONARY MASS. NEW MODERATE PLEURAL EF FUSIONS, ANASARCA, AND DIFFUSE MESENTERIC EDEMA ARE NOTED, LIKELY ON THE BASIS OF VOLUME OVERLOAD. TH IS MAKES EVALUATION FOR PANCREATITIS DIFFICULT. CORRELATION WITH SERUM AMYLASE AND LIPASE ARE RECOMME NDED ALTHOUGH PANCREATITIS IS NOT SUSPECTED. 3. 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 4. SMALL HIATAL HERNIA, POSSIBLE LEFT RENAL CYSTS AND POSSIBLE HEPATIC CYST THAT SHOULD BE FURTHER CH ARACTERIZED WITH ULTRASOUND OR CT WITH CONTRAST. 5. REDEMONSTRATION OF THE PREVIOUSLY DESCRIBED FRACTURES ON THE EXAM OF 07/06/2018.
[2018-07-14] MEDS ORDERED: ONDANSETRON 4 MG/2 ML VIAL IVP PRN (12:22)
[2018-07-14] MEDS: LEVOFLOXACIN 500MG-D5W PMX 500 MG in DEXTROSE/WATER 1 100ML.BAG IVPB SCH (14:53)
--- NOTE | 2018-07-14 16:27 | P.PN ---
Subjective Progress Note Date: 07/14/18 Principal diagnosis: Dysphagia NG tube inserted last night with bilious return. Computed tomography scan abdomen and pelvis today reported no evidence of bowel obstruction underlying pancolitis infectious colitis such as C. diff could not be excluded. Stool studies pending. Patient is passing flatus and stool. NG tube has been removed. He is tolerating lemon ice. No bleeding. Denies abdominal pain. Objective - Vital Signs Vital signs: Vital Signs Temp 98.5 F 07/14/18 12:00 Pulse 75 07/14/18 12:00 Resp 20 07/14/18 12:00 BP 145/66 07/14/18 12:00 Pulse Ox 87 L 07/14/18 12:00 Intake & Output 07/13/18 07/14/18 07/14/18 18:59 06:59 18:59 Intake Total 815 600 Output Total 575 1250 Balance 240 -650 Weight 83.5 kg 80 kg Intake: IV 450 600 Levofloxacin 250Mg-D5w 50 Pmx 250 mg In Dextrose/ Water 1 50ml.bag @ 50 mls /hr IVPB Q24H ROM Rx#: [id number] Sodium Chloride 0.9% 1, 400 600 000 ml @ 50 mls/hr IV . Q20H ROM Rx#:[id number] Oral 365 Output: Gastric Drainage 200 700 Urine 375 250 Emesis 300 Other: Voiding Method Urinal Urinal # Voids 1 4 1 # Bowel Movements 1 - Exam General appearance: The patient is alert, oriented, in no acute distress. HET: Head is normocephalic and atraumatic. Pupils are equal and reactive. Oropharynx is clear without lesions. Neck: Supple without lymphadenopathy. Trachea midline. Heart: S1 S2. Regular rate and rhythm. Lungs: No crackles or wheezes are heard. Abdomen: Soft, nontender, nondistended with hypoactive bowel sounds. No peritoneal signs. No palpable organomegaly or masses. Extremities: Normal skin color and turgor. No cyanosis, rash, ulceration, clubbing, or edema. Radial and pedal pulses are 2/4 bilaterally. Neurological: No focal deficits. Strength and sensation are grossly intact. - Labs CBC & Chem 7: 07/14/18 10:40 07/14/18 10:40 Labs: Abnormal Lab Results - Last 24 Hours (Table) 07/14/18 07/14/18 Range/Units 10:40 10:40 WBC 14.6 H (3.8-10.6) k/uL RBC 3.12 L (4.30-5.90) m/uL Hgb 9.7 L (13.0-17.5) gm/dL Hct 30.4 L (39.0-53.0) % Neutrophils # 12.2 H (1.3-7.7) k/uL Lymphocytes # 0.7 L (1.0-4.8) k/uL Monocytes # 1.2 H (0-1.0) k/uL Potassium 3.2 L (3.5-5.1) mmol/L Glucose 101 H (74-99) mg/dL Microbiology - Last 24 Hours (Table) 07/07/18 15:07 Blood Culture - Final Blood No Growth after 144 hours Assessment and Plan (1) GI bleed Current Visit: Yes Status: Acute Code(s): K92.2 - GASTROINTESTINAL HEMORRHAGE, UNSPECIFIED SNOMED Code(s): 12795890 (2) Dysphagia Current Visit: Yes Status: Acute Code(s): R13.10 - DYSPHAGIA, UNSPECIFIED SNOMED Code(s): 49091278 (3) Coffee ground emesis Current Visit: Yes Status: Acute Code(s): K92.0 - HEMATEMESIS SNOMED Code( s): 72353718 (4) Acute blood loss anemia Current Visit: Yes Status: Acute Code(s): D62 - ACUTE POSTHEMORRHAGIC ANEMIA SNOMED Code(s): 953864651 (5) Atrial fibrillation Current Visit: Yes Status: Acute Code(s): I48.91 - UNSPECIFIED ATRIAL FIBRILLATION SNOMED Code(s): 58874889 (6) Pelvic fracture Current Visit: Yes Status: Acute Code(s): S32.9XXA - FRACTURE OF UNSP PARTS OF LUMBOSACRAL SPINE AND PELVIS, INIT SNOMED Code(s): 07578201 (7) Ileus Narrative/Plan: CT negative for bowel obstruction underlying pancolitis pseudomembranous infectious colitis cannot be excluded C. diff testing requested and pending. Current Visit: Yes Status: Acute Code(s): K56.7 - ILEUS, UNSPECIFIED SNOMED Code(s): 637500502 (8) Status post fall Current Visit: Yes Status: Acute Code(s): Z91.81 - HISTORY OF FALLING SNOMED Code(s): 613441150 (9) Right lower lobe lung mass Current Visit: Yes Status: Acute Code(s): R91.8 - OTHER NONSPECIFIC ABNORMAL FINDING OF LUNG FIELD SNOMED Code(s): 082383559 Plan: 1. EGD rescheduled for tomorrow. Nothing by mouth after midnight. Continue to hold anticoagulation. The delivery lead has discussed the risks, benefits and alternative therapies for the above-mentioned procedure and for both sedation/analgesia as well as necessary blood product administration, if indicated, as they pertain to this patient. The patient has indicated understanding and acceptance of the risks and procedures discussed. Assessment and plan a care discussed with Dr. Engle
[2018-07-14] MEDS: metroNIDAZOLE-NS PMX 500 MG in SALINE 1 100ML.BAG IVPB SCH ×2 (16:56→23:35)
[2018-07-14] MEDS: SODIUM CHLORIDE 0.9% 1,000 ML IV SCH (16:56)
[2018-07-14] MEDS: LACTATED RINGERS 1,000 ML IV SCH (21:39)
--- NOTE | 2018-07-14 22:59 | PN ---
PROGRESS NOTE DATE OF SERVICE: 07/14/2018 DATE OF SERVICE: This 83-year-old gentleman who was admitted with fall and acute pelvis fracture also had acute rhabdomyolysis. The patient also had a possible pneumonia with pleural effusion and a mass lesion on the right side. The patient had an NG tube inserted which came out after sneezing and abdominal pelvis CAT scan was done which showed multiple findings but no evidence of any bowel obstruction mucosal thickening with possibly enriquez colitis was suspected. PAST MEDICAL HISTORY: Reviewed. REVIEW OF SYSTEMS: CARDIOVASCULAR: No angina or palpitations. Respiration: As mentioned earlier. GI as mentioned earlier. : No dysuria. Central nervous system: No numbness or weakness. CURRENT MEDICATIONS: Reviewed and include: 1. [place] 7.5 q.6h p.r.n. 2. DuoNeb q.i.d. and p.r.n. 3. Dulcolax 5 mg. 4. Colace 100 mg b.i.d. 5. Levaquin 500 mg daily. 6. Lidoderm patch. 7. Ativan b.i.d. p.r.n. 8. Melatonin. 9. Reglan. 10.Flagyl IV. 11.Morphine sulfate p.r.n. 12.Zofran. 13.Protonix. 14.Flomax. PHYSICAL EXAM: Patient is alert, oriented x3. Pulse 78, blood pressure 140/83 respiration 20, temperature 98.7, pulse ox 98% on 3 L. HEENT is conjunctivae normal. Oral mucosa moist. Neck is no jugular venous distention. No carotid bruit. No lymph node enlargement. Cardiovascular system: S1, S2 muffled. RESPIRATORY: Breath sounds diminished in the bases. A few scattered rhonchi and crackles. ABDOMEN: Soft, obese, mild diffuse discomfort. No guarding. No rigidity. No mass palpable. Legs: No edema. No swelling. Nervous system: Higher functions as mentioned earlier. Moves all four extremities. No focal deficits. Lymphatics: No lymph nodes palpable in the neck, axillae or groin. Skin: No ulcer, rash or bleeding. JOINTS: No active deforming arthropathy. LABS: WBC 14.2, hemoglobin 9.7, sodium 140, potassium 3.2. ASSESSMENT: 1. Fall and acute pelvis fracture, right superior inferior pubic ramus fracture with severe pain and gait dysfunction. 2. Acute rhabdomyolysis. 3. Paroxysmal atrial fibrillation. 4. Increased WBC. 5. Possible right lower lobe pneumonia. 6. Right lung mass lesion with pleural effusion. 7. Abdominal distention, possibly ileus, status post NG x3. 8. Severe hypotension monitored in ICU, possibly secondary dehydration, multifactorial. 9. Elevated troponin 1.170 indeterminate. 10.Myocardial infarction unlikely per Cardiology. 11.Fever, elevated WBC possibly urinary tract infection present on admission. 12.Increased creatinine with possible acute renal failure for the baseline chronic kidney disease stage III. 13.Abdominal distention. 14.Anemia, normocytic anemia of chronic disease. 15.Increased AST. 16.Gastroesophageal reflux disease. 17.Hypertension. 18.History of degenerative joint disease. 19.History of prostate disorder. 20.History of gout. 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 22.History of right lung cancer. 23.History of adenoidectomy. 24.History of major depression. 25.History of nicotine dependence. 26.CODE, NO CPR, NO VENT. RECOMMENDATIONS AND DISCUSSION: 1. Recommend to continue current medications. 2. Continue to monitor. 3. Symptomatic treatment. 4. Recommend continue with current medications. 5. Discussed with Dr. Lackey, the pleural fluid may have to be tapped. 6. Continue to follow closely with surgery. 7. Continue with the antibiotics. 8. Continue the bronchodilators. 9. Continue the rest of medications. Prognosis guarded because of multiple complex medical issues. Further recommendations to follow. MMODL / IJN: [id number] /
[2018-07-15] MEDS: METOCLOPRAMIDE 5 MG/ML 2 ML VIAL IVP SCH ×4 (05:11→23:42)
[2018-07-15] MEDS: metroNIDAZOLE-NS PMX 500 MG in SALINE 1 100ML.BAG IVPB SCH ×3 (07:45→23:43)
[2018-07-15] MEDS: PANTOPRAZOLE 40 MG/10 ML VIAL IVP SCH (07:46)
[2018-07-15] MEDS: LIDOCAINE 5% PATCH TOPICAL SCH (07:46)
[2018-07-15] MEDS: IPRATROPIUM-ALBUTEROL 3 ML NEB INHALATION SCH ×3 (08:40→20:44)
[2018-07-15] MEDS ORDERED: IV FLUID CONTINUATION 1,000 ML IV ONE (09:08)
[2018-07-15] MEDS ORDERED: PROPOFOL 10 MG/ML 20 ML VIAL IV ONE (09:08)
[2018-07-15] MEDS ORDERED: LIDOCAINE 1% INJ 10MG/ML (20 ML MDV) ONE (09:08)
--- NOTE | 2018-07-15 09:43 | P.PCN ---
Date of Procedure: 07/15/18 Description of Procedure: BRIEF HISTORY: This is an 83-year-old gentleman with past medical history significant for hypertension, hyperlipidemia, GERD, depression, prior history of smoking, emphysema, who presented to the hospital after experiencing a fall. CT of the chest and abdomen was also completed which showed segmental angulated fractures of the right inferior pubic ramus, nondisplaced fracture of the lateral aspect of the right superior pubic ramus and additional nondisplaced own sacral fracture. Subtle nondisplaced fractures of the right lateral fourth through seventh ribs. Findings highly suspicious for 5.2 cm right lower lobe lung cancer with metastatic subcarinal lymphadenopathy. The GI service was consulted to see the patient due to complaints of nausea, vomiting and intermittent solid food dysphagia . PROCEDURE PERFORMED: Esophagogastroduodenoscopy with biopsy. PREOPERATIVE DIAGNOSIS: Esophageal dysphagia, nausea and vomiting. ESTIMATED BLOOD LOSS: Minimal. IV sedation per anesthesia. PROCEDURE: After informed consent was obtained, the patient was brought into the endoscopy unit. IV sedation was administered by Anesthesia under continuous monitoring. Initially the Olympus GIF-190 video endoscope was inserted into the mouth. Esophagus intubated without any difficulty. It was gradually advanced into the stomach and duodenum and carefully examined. The bulb and the second part of the duodenum appeared normal. The scope at this time was withdrawn to the stomach, adequately insufflated with air, and upon careful examination, mucosa of the antrum, body, cardia and the fundus appeared grossly normal. Diminutive polyps in the body of the stomach were noted likely representing fundic gland polyps and removed with cold forceps. Mild scattered erythema of the antrum and body suggestive of gastritis was biopsied. The scope was then withdrawn into the esophagus. The GE junction was located at 39 cm from the incisors. Erythema in the distal esophagus consistent with LA grade C esophagitis was noted and biopsied. The patient tolerated the procedure well IMPRESSION: 1. Mild gastritis, biopsied. 2. Diminutive gastric polyps, removed with cold snare. 3. LA grade C esophagitis, biopsied. RECOMMENDATIONS: The findings of this examination were discussed with the patient. We will start clear liquid diet, advance per surgical recommendations. Continue Protonix twice a day. Will add Carafate 3 times a day. The gastroenterology service will stand by at this time, please call with any questions or concerns.
--- NOTE | 2018-07-15 10:46 | US ---
EXAMINATION TYPE: US chest DATE OF EXAM: 07/15/2018 COMPARISON: NONE CLINICAL HISTORY: bilateral pleural effusions. Bilateral pleural effusion TECHNIQUE: Targeted ultrasound of the posterior lower bilateral hemithoraces EXAM MEASUREMENTS: Right Pleural Effusion pocket size: 12.2 cm Right skin surface to fluid distance: 3.1 cm Left Pleural Effusion pocket size: 5.8 cm Left skin surface to fluid distance: 3.1 cm Right side MARKED for possible thoracentesis outside the dept, lung seen within fluid pocket at a dep th of 5.5cm. Left side MARKED for possible thoracentesis outside the dept, lung seen within fluid pocket at a dept h of 4.9cm. Pulmonologists are able to review the images in the patient?s EMR. IMPRESSIONS: Small bilateral pleural effusions
[2018-07-15] MEDS: DOCUSATE 100 MG CAP PO SCH ×2 (10:57→20:10)
[2018-07-15] MEDS: TAMSULOSIN 0.4 MG CAP.ER.24H PO SCH (10:57)
[2018-07-15] MEDS: SUCRALFATE 1 GM TAB PO SCH ×2 (12:21→17:10)
[2018-07-15 13:18] LABS: Calcium 8.4 mg/dL (8.4-10.2); Potassium 3.1 mmol/L (3.5-5.1)
[2018-07-15] MEDS ORDERED: Potassium Replacement Protocol 1 EACH MISC MISCELLANE PRN ×3 (14:10→19:11)
[2018-07-15] MEDS: POTASSIUM CHLORIDE ER 20 MEQ TAB.ER PO SCH ×4 (14:44→21:29)
[2018-07-15] MEDS: SODIUM CHLORIDE 0.9% 1,000 ML IV SCH (15:50)
--- NOTE | 2018-07-15 16:56 | P.PN ---
Subjective Progress Note Date: 07/15/18 Principal diagnosis: Status post fall and multiple right-sided rib fractures, acute rhabdomyolosis, hypotension secondary to AV block, Mobitz type I. This 83-year-old white male patient that follows at the [facility], who was brought to the emergency department on 07/06/2018 after sustaining a mechanical fall, patient tripped on a curb and fell onto his right hip. Afterwards patient had difficulty bearing weight, was unable to ambulate, and also had some discomfort in the right anterior ribs and abdomen. He didn't strike his head in the fall, but denied any loss of consciousness. No altered mentation, and no neurological deficits. X-ray of the hip and pelvis revealed right-sided pubic ramus fracture. CT of the chest, abdomen and pelvis showed moderate centrilobular emphysema, areas of interstitial scarring, and a suspicious right lower lobe mass measuring 5.2 cm with an enlarged 2.2 cm subcarinal lymph node. Subtle nondisplaced fractures of the right lateral fourth through seventh ribs. A lobulated 4.7 cm left kidney cyst. 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 CT of the head and cervical spine showed no acute fracture and no acute intracranial abnormality. EKG showed sinus rhythm with right bundle branch block, but no acute ischemic changes. 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 No past medical history of cancer. Denies any recent weight loss, appetite loss, no night sweats, no hemoptysis, no chest wall tenderness. Other medical history includes hypertension, hyperlipidemia, chronic kidney disease, patient used to follow with a social services counselor, past history of EtOH abuse currently in remission, chronic back pain, GERD/reflux, depression. Patient's on is at the bedside, and he states patient has been experiencing falls at home , does ambulate with a walker. Currently patient is resting in bed, is having right-sided chest wall discomfort, worse with repositioning, but in no acute distress, pulse ox is 92% on 2 L per nasal cannula, is receiving pain medications, and has been noted to be hypotensive likely related to the effects of the narcotic analgesic. Afebrile. Lung sounds are diminished. No cough, no chest congestion. Patient's total CK was elevated at 2401, and has actually been trending up currently at 5529. Positive troponins of 0.218, 1.110, and 1.660, cardiology is following. Blood work showed a white blood cell count of 13.4, hemoglobin of 10.7, electrolytes were unremarkable, BUN was 28 and creatinine was 2.0 on admission. Plasma lactic acid is 1.0. Serum alcohol was less than 10, urine drug screen was positive for opiates, patient has a prescription for Malakoff. Were consulted in regards to the right lower lobe lung mass subcarinal adenopathy, suspicious for lung cancer. Patient was reevaluated today on 07/08/2018. Late afternoon yesterday, patient was transferred to the intensive care unit mostly because of persistent hypotension, and bradycardia arrhythmia with second degree AV block, Mobitz type I. His hypotension was felt to be multifactorial, mostly related to blood pressure medications, narcotics for pain control, and possibly relative dehydration. Patient was given fluids did not improve much, hence he was placed overnight on a small dose of norepinephrine. This morning he is off norepinephrine, blood pressure is much better controlled, and the patient is feeling better. He is complaining however of some difficulty swallowing and I recommended a modified barium swallow, patient is having difficulty swallowing solid food and liquids. Pain seems to be better controlled from his rib fractures. Labs were reviewed relatively normal CBC hemoglobin however is 9 electrolytes are normal BUN is up to 36 creatinine is 2.48. CPK which was initially elevated secondary to fall is coming down to 4406 today. Patient is still receiving fluids at 100 mL per hour. Urine output is reasonable without any diuretics at 40 mL per hour. Chest x-ray was reviewed, right lower lobe mass was again noted. And this was also noted on the CT of the chest. Reevaluated today on 07/09/2018, patient remains in the intensive care unit, but he is basically an overflow from selective. No further episodes of hypotension , no further episodes of bradycardia,he does have paroxysmal atrial fibrillation with episodes of second-degree AV block, Mobitz type I. Patient had videoscopic fluoroscopy for evaluation of dysphagia, and he was noted to havepenetration without aspiration of thin liquids however there was a significant reflux in proximal cervical esophagus. And the radiologist recommended esophagogram or evaluation by gastroenterology. Will consult gastroenterology for further evaluation of this issue.apparently his dysphagia has been a chronic issue. Labs today showed a relatively normal electrolytes renal functioning is improving creatinine is down to 1.51 from 2.48 yesterday. WBC count is 8.4 hemoglobin is 8.5, liver enzymes are improving. CPK is down to 941 The patient is seen today 07/10/2018 in follow-up on the selective care unit. He is awake and alert in no acute distress. He is maintaining good O2 saturations in the 90s on 4 L/m per nasal cannula. He is afebrile. Hemodynamically stable. White count 8.5. Hemoglobin 8.6. Creatinine 1.20. Creatinine kinase down to 331. AST 86, ALT 103. He has been initiated on Eliquis per cardiology for paroxysmal atrial fibrillation. Continue to monitor heart rhythm. Reevaluated today on 07/11/2018, patient is doing well from the pulmonary perspective. However continues to have lots of GI symptoms and unable to swallow. I did consult GI again, and hopefully the patient could have for GI evaluation and possible EGD in the next 24 hours. Patient denies any shortness of breath, no cough, no wheezing, denies any fever, no chills, no hemoptysis. His right-sided chest pain related to his fractures seems to be under control. WBC count is 11.4 hemoglobin is 9.1. His electrolytes are normal renal profile is normal and significantly improved over the last few days since admission. CPK is down further to 238. His acute abdominal series today is suggestive of intestinal ileus. However the patient told me that he had a good sized bowel movement earlier today. Hence no need for nasogastric tube and no need for surgical intervention. Not to mention the patient has no abdominal pain and no distention on 07/12/2018 patient seen in follow-up on selective care unit, he is awake and alert, in no acute distress, currently on 2 L per nasal cannula his pulse ox is 92%, afebrile, hemodynamically stable, denies any shortness of breath denies any chest pain. Has been working on incentive spirometer, denies any chest wall discomfort. patient is passing flatus. No nausea, did have an episode of emesis today. No abdominal bloating.Surgical services are following, The patient is seen today 07/13/2018 in follow-up on the selective care unit. He is awake and alert in no acute distress. He is currently resting comfortably in bed. Maintaining O2 saturations in the mid 90s on 3 L/m per nasal cannula. Blood culture reveals no growth. White count 15.1. Hemoglobin 9.4. Creatinine 1.07. Currently on bronchodilators and Levaquin. Continues to work with the incentive spirometer. The patient is seen today 07/15/2018 in follow-up on the selective care unit. He is awake and alert in no acute distress. Currently resting quite comfortably in bed. His pain is better controlled. He has some residual right- sided posterior chest discomfort now. He was found to have significant pleural effusions right greater than left. Ultrasound reveals a 12.2 cm pocket on the right. Blood cultures reveal no growth. Sodium 140. Potassium 3.1. Creatinine 1.00. He remains on bronchodilators, Levaquin, metronidazole. 0.9 normal saline at 50 MLS per hour. Objective - Vital Signs Vital signs: Vital Signs Temp 97.4 F L 07/15/18 11:44 Pulse 80 07/15/18 14:23 Resp 17 07/15/18 11:44 BP 140/61 07/15/18 11:44 Pulse Ox 94 L 07/15/18 11:44 Intake & Output 07/14/18 07/15/18 07/15/18 18:59 06:59 18:59 Intake Total 100 600 Output Total 350 Balance -250 600 Weight 84.5 kg 84.5 kg Intake: IV 100 200 Sodium Chloride 0.9% 1, 100 000 ml @ 50 mls/hr IV . Q20H ROM Rx#:[id number] Intake, IV Titration 400 Amount Sodium Chloride 0.9% 1, 400 000 ml @ 50 mls/hr IV . Q20H ROM Rx#:[id number] Output: Urine 350 Other: # Voids 1 1 1 # Bowel Movements 1 1 1 - Exam GENERAL EXAM: Alert, frail 83-year-old, fairly comfortable in no apparent distress. On 3 L nasal cannula HEAD: Normocephalic. EYES: Normal reaction of pupils, equal size. NOSE: Clear with pink turbinates. THROAT: No erythema or exudates. NECK: No masses, no JVD. CHEST: No chest wall deformity. Tenderness to palpation. LUNGS: Equal air entry with crackles in the bilateral posterior bases more so on the right. Diminished. CVS: S1 and S2 normal with an audible murmur, irregular rhythm. ABDOMEN: No hepatosplenomegaly, normal bowel sounds, no guarding or rigidity. SPINE: No scoliosis or deformity SKIN: No rashes CENTRAL NERVOUS SYSTEM: No focal deficits, tone is normal in all 4 extremities. EXTREMITIES: There is no peripheral edema. No clubbing, no cyanosis. Peripheral pulses are intact. - Labs CBC & Chem 7: 07/14/18 10:40 07/15/18 12:22 Labs: Abnormal Lab Results - Last 24 Hours (Table) 07/15/18 Range/Units 12:22 Potassium 3.1 L (3.5-5.1) mmol/L Glucose 114 H (74-99) mg/dL Microbiology - Last 24 Hours (Table) 07/14/18 12:55 Blood Culture - Preliminary Blood No Growth after 24 hours Assessment and Plan Assessment: Impression: 1 hypotension secondary to blood pressure medications which are presently on hold, narcotics, and the dose has been cut down, and relative dehydration. resolved. 2 multiple rib fractures secondary to fall, fourth through seventh ribs on the right side. Now with bilateral pleural effusions right greater than left. 3 acute pubic rami fracture secondary to fall. being followed by orthopedics 4 acute rhabdomyolysis and acute kidney injury related to rhabdomyolysis and also related to hypotension.improving with improved CPK level and improved creatinine/renal profile today. 5 right lung mass strongly suspicious for bronchogenic carcinoma, this will need to be addressed on an outpatient basis, may eventually consider CT-guided needle biopsy by interventional radiology. The mass seems to be abutting the right pleural surface. It is associated with subcarinal lymphadenopathy. 6 COPD, currently stable and inactive. 7 history of depression 8 chronic back pain 9 [id number] smoker, quit in 1979. 10 elevated troponin, nonspecific, being addressed by cardiology on the case. 11 dysphagia, Will arrange for GI consultation since the patient has abnormal modified barium swallow. Recommendation: The patient was seen and evaluated by Dr. Lackey. Ultrasound of the chest was reviewed. We will plan for a right-sided thoracentesis tomorrow. In the interim we'll continue with his current medications. We will increase his activity as tolerated. We'll continue to follow. I, the cosigning physician, performed a history & physical examination of the patient. Lungs sounds with some crackles in the bilateral bases right greater than left. Maintaining good O2 saturations in the 90s on 3 L/m per nasal cannula. I discussed the assessment and plan of care with my nurse practitioner , Cassidy Rincon. I attest to the above note as dictated by her.
[2018-07-15] MEDS: PANTOPRAZOLE 40 MG TABLET PO SCH (17:10)
[2018-07-15] MEDS: LEVOFLOXACIN 500MG-D5W PMX 500 MG in DEXTROSE/WATER 1 100ML.BAG IVPB SCH (17:10)
--- NOTE | 2018-07-15 20:06 | PN ---
PROGRESS NOTE DATE OF SERVICE: 07/15/2018 This 83-year-old gentleman admitted initially with fall and pelvis fracture also had rhabdomyolysis. Patient subsequently developed possible pneumonia on the right side. Patient also had pleural effusion and mass lesion on right side. Also Dr. Lackey is following the patient. Ultrasound of the chest was done. The patient also had an episode of hematemesis. Patient also had ileus as well. Dr. Engle did an upper endoscopy that showed mild gastritis and diminutive gastric polyp with low-grade esophagitis. Otherwise, no chest pain. No palpitations. PAST MEDICAL HISTORY: Reviewed. REVIEW OF SYSTEMS: CARDIOVASCULAR: No angina. RESPIRATORY: As mentioned. GI: As mentioned. : No dysuria. NERVOUS SYSTEM: No numbness or weakness. CURRENT MEDICATIONS: Reviewed and include: 1. Chilo 7.5 q.6h p.r.n. 2. DuoNeb q.i.d. and p.r.n. 3. Eliquis 5 mg. 4. Colace 100 mg b.i.d. 5. Lactated Ringer. 6. Levaquin. 7. Lidocaine. 8. Melatonin. 9. Reglan. 10.Narcan. 11.Zofran. 12.Protonix. 13.Carafate. 14.Flomax. 15.Visine eyedrops. PHYSICAL EXAMINATION: Alert and oriented x3. Pulse 77, blood pressure 140/61, respiration 17, temperature 97.4, pulse ox 94% on 3 L. HEENT: Conjunctivae normal. NECK: No jugular venous distention. CARDIOVASCULAR: S1, S2 muffled. RESPIRATORY: Breath sounds diminished in the bases. A few scattered rhonchi. ABDOMEN: Soft. Diffuse distention but slightly better from couple days ago. Bowel sounds diminished. No ascites. No guarding. No rigidity. LEGS: No edema. NERVOUS SYSTEM: No focal deficits. LABS: Sodium 140, potassium 3.1. C difficile was negative. ASSESSMENT: 1. Fall and acute pelvis fracture, right superior inferior pubic ramus fracture with severe pain and gait dysfunction. 2. Acute rhabdomyolysis. 3. Paroxysmal atrial fibrillation. 4. Increased WBC. 5. Possible right lower lobe pneumonia. 6. Right lung mass lesion with pleural effusion. 7. Abdominal distention, possibly ileus, status post NG tube x3. 8. Severe hypotension, monitored in ICU, possibly secondary to dehydration, multifactorial. 9. Elevated troponin 1.176 indeterminate. Myocardial infarction unlikely per Cardiology. 10.Fever, elevated WBC possible acute urinary tract infection, present on admission. 11.Increased creatinine with possible acute renal failure with the baseline chronic kidney disease stage III. 12.Abdominal distention. 13.Anemia, normocytic anemia of chronic disease. 14.Diffuse colonic thickening in the CT scan. 15.Increased AST. 16.Gastroesophageal reflux disease. 17.Hypertension. 18.History of degenerative joint disease. 19.History of prostate disorder. 20.History of gout. 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 22.History of right lung cancer. 23.History of adenoidectomy. 24.History of major depression. 25.History of nicotine dependence. 26.NO CODE, NO CPR, NO VENT. RECOMMENDATIONS AND DISCUSSION: I recommend to continue current management and symptomatic treatment. Otherwise at this time, I would recommend follow closely with Dr. Lackey with possibly pleural tap. Otherwise, the patient does not want any invasive management at this time. I will continue to monitor. EGD findings noted. PT, OT evaluation, possible ECF rehab. Guarded prognosis. Further recommendations to follow. MMODL / IJN: [id number] /
[2018-07-15] MEDS: LACTATED RINGERS 1,000 ML IV SCH (20:10)
[2018-07-16] MEDS: PANTOPRAZOLE 40 MG TABLET PO SCH ×2 (07:03→17:19)
[2018-07-16] MEDS: SUCRALFATE 1 GM TAB PO SCH ×3 (07:04→17:19)
[2018-07-16] MEDS: METOCLOPRAMIDE 5 MG/ML 2 ML VIAL IVP SCH ×4 (07:04→23:39)
[2018-07-16 07:19] LABS: Basophils # (A) 0.1 k/uL (0-0.2); Basophils % (A) 0 %; Eosinophils # (A) 0.3 k/uL (0-0.7); Eosinophils % (A) 2 %; HCT 30.1 % (39.0-53.0); HGB 9.5 gm/dL (13.0-17.5); Hypochromasia Slight; Lymphocytes # (A) 0.7 k/uL (1.0-4.8); Lymphocytes % (A) 6 %; MCH 30.3 pg (25.0-35.0); MCHC 31.4 g/dL (31.0-37.0); MCV 96.4 fL (80.0-100.0); Mean Platelet Volume 6.8; Monocytes # (A) 0.8 k/uL (0-1.0); Monocytes % (A) 7 %; Neutrophils # (A) 9.2 k/uL (1.3-7.7); Neutrophils % (A) 82 %; Platelet Count 293 k/uL (150-450); RBC 3.13 m/uL (4.30-5.90); RDW 14.5 % (11.5-15.5); WBC 11.2 k/uL (3.8-10.6)
[2018-07-16] MEDS: DOCUSATE 100 MG CAP PO SCH ×2 (07:43→20:38)
[2018-07-16] MEDS: metroNIDAZOLE-NS PMX 500 MG in SALINE 1 100ML.BAG IVPB SCH ×3 (07:43→23:39)
[2018-07-16] MEDS: LIDOCAINE 5% PATCH TOPICAL SCH (07:44)
[2018-07-16] MEDS: TAMSULOSIN 0.4 MG CAP.ER.24H PO SCH (07:44)
[2018-07-16 07:45] LABS: Calcium 7.9 mg/dL (8.4-10.2); Potassium 3.4 mmol/L (3.5-5.1)
[2018-07-16] MEDS: IPRATROPIUM-ALBUTEROL 3 ML NEB INHALATION SCH ×3 (07:57→19:51)
--- NOTE | 2018-07-16 13:07 | XR ---
EXAMINATION TYPE: XR chest 1V DATE OF EXAM: 07/16/2018 COMPARISON: 07/13/2018 HISTORY: Postthoracentesis TECHNIQUE: Single frontal view of the chest is obtained. FINDINGS: There is interval marked improvement in reduction of pleural fluid. Persistent small effus ions are seen. There is apical pleural thickening. There is improvement in the interstitium suggestiv e of resolving venous congestion. Remains an apparent area of masslike consolidation in the right per ihilar region. Heart size stable. IMPRESSION: 1. No pneumothorax postthoracentesis. Interval improvement in amount of pleural fluid. 2. Interval improvement in the interstitium suggestive of improving CHF. 3. Persistent areas of consolidation for which follow-up to resolution is recommended particularly on the right.
[2018-07-16 14:22] LABS: Appearance,BF Hazy; Color,BF Yellow; Nucleated Cells, Body Fluid 27 /uL; RBC, Body Fluid 1188 /uL
[2018-07-16 14:38] LABS: Mononuclear WBC,Body Fluid 71 %; Polynuclear WBC,Body Fluid 29 %; Total Cells Counted,Body Fluid 100
[2018-07-16] MEDS: SODIUM CHLORIDE 0.9% 1,000 ML IV SCH (15:20)
[2018-07-16] MEDS: HYDROcodone/APAP 7.5-325MG 1 EACH TAB PO PRN ×2 (15:25→20:42)
--- NOTE | 2018-07-16 15:57 | P.PN ---
Subjective Progress Note Date: 07/16/18 On today's evaluation of 07/16/2018 the patient was seen in the follow-up. The patient was doing well. He was using incentive spirometer. He was started on oxygen at 3 L per minute nasal cannula. We have marked the right-sided pleural effusion. I performed a bedside thoracentesis on this patient total of 1.5 L of pleural fluid was aspirated from the right lung. There was no evidence of any hemothorax. The pleural fluid with Dr. bit yellowish in color. The fluid will be sent for cytology in addition to Gram stain and culture and chemical analysis including LDH , protein and glucose. The patient is doing extremely well for now. His pain is under good control. No altered mentation. Renal function stable. He is using a combination of Levaquin and Flagyl for any potential aspiration pneumonia. I feel that the pleural effusion that has developed are most likely reactive secondary to his fall and his poor inspiratory efforts. He has a right sided lung mass which needs to be followed up at a later stage and he may require a biopsy. Meanwhile the pleural fluid was sent cytology and this may potentially established diagnoses if the pleural fluid is malignant. Objective - Vital Signs Vital signs: Vital Signs Temp 98.1 F 07/16/18 08:00 Pulse 72 07/16/18 13:44 Resp 20 07/16/18 12:00 BP 164/69 07/16/18 12:00 Pulse Ox 95 07/16/18 12:00 Intake & Output 07/15/18 07/16/18 07/16/18 18:59 06:59 18:59 Intake Total 600 500 360 Balance 600 500 360 Weight 84.5 kg 82 kg 82 kg Intake: IV 200 Intake, IV Titration 400 500 Amount Sodium Chloride 0.9% 1, 400 500 000 ml @ 50 mls/hr IV . Q20H ROM Rx#:[id number] Oral 360 Other: # Voids 3 1 # Bowel Movements 1 1 - Exam GENERAL EXAM: Alert, frail 83-year-old, fairly comfortable in no apparent distress. On 3 L nasal cannula HEAD: Normocephalic. EYES: Normal reaction of pupils, equal size. NOSE: Clear with pink turbinates. THROAT: No erythema or exudates. NECK: No masses, no JVD. CHEST: No chest wall deformity. Tenderness to palpation. LUNGS: Equal air entry with crackles in the bilateral posterior bases more so on the right. Diminished rest on the right lung base which improved following the thoracentesis CVS: S1 and S2 normal with an audible murmur, irregular rhythm. ABDOMEN: No hepatosplenomegaly, normal bowel sounds, no guarding or rigidity. SPINE: No scoliosis or deformity SKIN: No rashes CENTRAL NERVOUS SYSTEM: No focal deficits, tone is normal in all 4 extremities. EXTREMITIES: There is no peripheral edema. No clubbing, no cyanosis. Peripheral pulses are intact. - Labs CBC & Chem 7: 07/16/18 06:27 07/16/18 06:27 Labs: Abnormal Lab Results - Last 24 Hours (Table) 07/15/18 07/16/18 07/16/18 Range/Units 18:27 06:27 06:27 WBC 11.2 H (3.8-10.6) k/uL RBC 3.13 L (4.30-5.90) m/uL Hgb 9.5 L (13.0-17.5) gm/dL Hct 30.1 L (39.0-53.0) % Neutrophils # 9.2 H (1.3-7.7) k/uL Lymphocytes # 0.7 L (1.0-4.8) k/uL Potassium 3.1 L 3.4 L (3.5-5.1) mmol/L Calcium 7.9 L (8.4-10.2) mg/dL Microbiology - Last 24 Hours (Table) 07/14/18 12:55 Blood Culture - Preliminary Blood No Growth after 48 hours Assessment and Plan Plan: Impression: 1 right-sided pleural effusion moderate in size, postthoracentesis and evacuation of 1.5 L of pleural fluid. The patient has a right lower lobe mass. The fluid was sent for analysis. Rule out reactive pleural fluid following trauma. Rule out malignant effusion. No evidence of any hemothorax at this point in time. Parapneumonic effusion is felt to be less likely at this point in time. 2 multiple rib fractures secondary to fall, fourth through seventh ribs on the right side. Now with bilateral pleural effusions right greater than left. 3 acute pubic rami fracture secondary to fall. being followed by orthopedics 4 acute rhabdomyolysis and acute kidney injury related to rhabdomyolysis and also related to hypotension.improving with improved CPK level and improved creatinine/renal profile today. 5 right lung mass strongly suspicious for bronchogenic carcinoma, this will need to be addressed on an outpatient basis, may eventually consider CT-guided needle biopsy by interventional radiology. The mass seems to be abutting the right pleural surface. It is associated with subcarinal lymphadenopathy. 6 COPD, currently stable and inactive. 7 history of depression 8 chronic back pain 9 [id number] smoker, quit in 1979. 10 elevated troponin, nonspecific, being addressed by cardiology on the case. 11 dysphagia, improved and the patient is tolerating his diet. Plan The thoracentesis was done without any complications. Check fluid for LDH and protein and cytology and Gram stain and culture and cytology. Provide the patient incentive spirometer. May discontinue the current antibiotics and this will discuss with the medical team. COPD stable. Pain is under good control. Patient underwent a EGD that showed mild gastritis and esophagitis. Continue to follow make further recommendations based on the patient's overall progress.
[2018-07-16] MEDS: LEVOFLOXACIN 500MG-D5W PMX 500 MG in DEXTROSE/WATER 1 100ML.BAG IVPB SCH (16:52)
[2018-07-16 19:30] LABS: Total Protein, Body Fluid 1770 mg/dL
[2018-07-16] MEDS: LACTATED RINGERS 1,000 ML IV SCH (20:43)
[2018-07-17] MEDS: SODIUM CHLORIDE 0.9% 1,000 ML IV SCH ×2 (06:10→14:22)
[2018-07-17] MEDS: SUCRALFATE 1 GM TAB PO SCH ×3 (06:19→19:20)
[2018-07-17] MEDS: METOCLOPRAMIDE 5 MG/ML 2 ML VIAL IVP SCH ×3 (06:19→20:02)
[2018-07-17] MEDS: PANTOPRAZOLE 40 MG TABLET PO SCH ×2 (06:19→17:23)
--- NOTE | 2018-07-17 06:42 | PCN ---
PROCEDURE NOTE THORACENTESIS: PREOP DIAGNOSIS: Right-sided pleural effusion. POSTOP DIAGNOSIS: Right sided pleural effusion. A time-out was completed verifying correct patient, procedure, site, positioning , and implant (s) or special equipment if applicable. Ultrasound guidance was used and appropriate fluid pocket was identified and marked. Patient was positioned, prepped and draped in usual sterile fashion. Lidocaine was used to anesthetize the area. A Thoracentesis catheter was introduced into the pleural space and fluid was removed. Blood loss was none. A chest x-ray was ordered to evaluate for pneumothorax. Total Fluid Removed: Approximately 1500 mL Color of Fluid: Dark turbid yellow pleural effusion. Fluid was sent for appropriate laboratory tests. Patient tolerated the procedure well and there were no complications. No bedside complications and the chest x-ray following the procedure showed no evidence of any pneumothorax and there was interval improvement of the right-sided pleural fluid. MMODL / IJN: [id number] /
[2018-07-17 07:06] LABS: Basophils % (A) 0 %; Eosinophils # (A) 0.3 k/uL (0-0.7); Eosinophils % (A) 2 %; HCT 29.9 % (39.0-53.0); HGB 9.6 gm/dL (13.0-17.5); Hypochromasia Slight; Lymphocytes # (A) 0.8 k/uL (1.0-4.8); Lymphocytes % (A) 7 %; MCH 30.5 pg (25.0-35.0); MCV 95.2 fL (80.0-100.0); Mean Platelet Volume 6.3; Monocytes # (A) 0.7 k/uL (0-1.0); Monocytes % (A) 6 %; Neutrophils # (A) 10.4 k/uL (1.3-7.7); Neutrophils % (A) 84 %; Platelet Count 279 k/uL (150-450); RBC 3.14 m/uL (4.30-5.90); RDW 14.3 % (11.5-15.5); WBC 12.3 k/uL (3.8-10.6)
[2018-07-17 07:23] LABS: Calcium 7.9 mg/dL (8.4-10.2); Potassium 3.1 mmol/L (3.5-5.1)
[2018-07-17] MEDS: TAMSULOSIN 0.4 MG CAP.ER.24H PO SCH (08:26)
[2018-07-17] MEDS: LIDOCAINE 5% PATCH TOPICAL SCH (08:26)
[2018-07-17] MEDS: metroNIDAZOLE-NS PMX 500 MG in SALINE 1 100ML.BAG IVPB SCH ×2 (08:26→17:19)
[2018-07-17] MEDS: DOCUSATE 100 MG CAP PO SCH ×2 (08:27→20:02)
[2018-07-17] MEDS: IPRATROPIUM-ALBUTEROL 3 ML NEB INHALATION SCH ×3 (08:42→21:22)
[2018-07-17] MEDS: HYDROcodone/APAP 7.5-325MG 1 EACH TAB PO PRN (14:21)
--- NOTE | 2018-07-17 14:27 | P.PN ---
Subjective Progress Note Date: 07/17/18 Principal diagnosis: Status post fall and multiple right-sided rib fractures, acute rhabdomyolosis, hypotension secondary to AV block, Mobitz type I. This 83-year-old white male patient that follows at the [facility], who was brought to the emergency department on 07/06/2018 after sustaining a mechanical fall, patient tripped on a curb and fell onto his right hip. Afterwards patient had difficulty bearing weight, was unable to ambulate, and also had some discomfort in the right anterior ribs and abdomen. He didn't strike his head in the fall, but denied any loss of consciousness. No altered mentation, and no neurological deficits. X-ray of the hip and pelvis revealed right-sided pubic ramus fracture. CT of the chest, abdomen and pelvis showed moderate centrilobular emphysema, areas of interstitial scarring, and a suspicious right lower lobe mass measuring 5.2 cm with an enlarged 2.2 cm subcarinal lymph node. Subtle nondisplaced fractures of the right lateral fourth through seventh ribs. A lobulated 4.7 cm left kidney cyst. 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 CT of the head and cervical spine showed no acute fracture and no acute intracranial abnormality. EKG showed sinus rhythm with right bundle branch block, but no acute ischemic changes. 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 No past medical history of cancer. Denies any recent weight loss, appetite loss, no night sweats, no hemoptysis, no chest wall tenderness. Other medical history includes hypertension, hyperlipidemia, chronic kidney disease, patient used to follow with a clinical pharmacy specialist, past history of EtOH abuse currently in remission, chronic back pain, GERD/reflux, depression. Patient's on is at the bedside, and he states patient has been experiencing falls at home , does ambulate with a walker. Currently patient is resting in bed, is having right-sided chest wall discomfort, worse with repositioning, but in no acute distress, pulse ox is 92% on 2 L per nasal cannula, is receiving pain medications, and has been noted to be hypotensive likely related to the effects of the narcotic analgesic. Afebrile. Lung sounds are diminished. No cough, no chest congestion. Patient's total CK was elevated at 2401, and has actually been trending up currently at 5529. Positive troponins of 0.218, 1.110, and 1.660, cardiology is following. Blood work showed a white blood cell count of 13.4, hemoglobin of 10.7, electrolytes were unremarkable, BUN was 28 and creatinine was 2.0 on admission. Plasma lactic acid is 1.0. Serum alcohol was less than 10, urine drug screen was positive for opiates, patient has a prescription for [place]. Were consulted in regards to the right lower lobe lung mass subcarinal adenopathy, suspicious for lung cancer. Patient was reevaluated today on 07/08/2018. Late afternoon yesterday, patient was transferred to the intensive care unit mostly because of persistent hypotension, and bradycardia arrhythmia with second degree AV block, Mobitz type I. His hypotension was felt to be multifactorial, mostly related to blood pressure medications, narcotics for pain control, and possibly relative dehydration. Patient was given fluids did not improve much, hence he was placed overnight on a small dose of norepinephrine. This morning he is off norepinephrine, blood pressure is much better controlled, and the patient is feeling better. He is complaining however of some difficulty swallowing and I recommended a modified barium swallow, patient is having difficulty swallowing solid food and liquids. Pain seems to be better controlled from his rib fractures. Labs were reviewed relatively normal CBC hemoglobin however is 9 electrolytes are normal BUN is up to 36 creatinine is 2.48. CPK which was initially elevated secondary to fall is coming down to 4406 today. Patient is still receiving fluids at 100 mL per hour. Urine output is reasonable without any diuretics at 40 mL per hour. Chest x-ray was reviewed, right lower lobe mass was again noted. And this was also noted on the CT of the chest. Reevaluated today on 07/09/2018, patient remains in the intensive care unit, but he is basically an overflow from selective. No further episodes of hypotension , no further episodes of bradycardia,he does have paroxysmal atrial fibrillation with episodes of second-degree AV block, Mobitz type I. Patient had videoscopic fluoroscopy for evaluation of dysphagia, and he was noted to havepenetration without aspiration of thin liquids however there was a significant reflux in proximal cervical esophagus. And the radiologist recommended esophagogram or evaluation by gastroenterology. Will consult gastroenterology for further evaluation of this issue.apparently his dysphagia has been a chronic issue. Labs today showed a relatively normal electrolytes renal functioning is improving creatinine is down to 1.51 from 2.48 yesterday. WBC count is 8.4 hemoglobin is 8.5, liver enzymes are improving. CPK is down to 941 The patient is seen today 07/10/2018 in follow-up on the selective care unit. He is awake and alert in no acute distress. He is maintaining good O2 saturations in the 90s on 4 L/m per nasal cannula. He is afebrile. Hemodynamically stable. White count 8.5. Hemoglobin 8.6. Creatinine 1.20. Creatinine kinase down to 331. AST 86, ALT 103. He has been initiated on Eliquis per cardiology for paroxysmal atrial fibrillation. Continue to monitor heart rhythm. Reevaluated today on 07/11/2018, patient is doing well from the pulmonary perspective. However continues to have lots of GI symptoms and unable to swallow. I did consult GI again, and hopefully the patient could have for GI evaluation and possible EGD in the next 24 hours. Patient denies any shortness of breath, no cough, no wheezing, denies any fever, no chills, no hemoptysis. His right-sided chest pain related to his fractures seems to be under control. WBC count is 11.4 hemoglobin is 9.1. His electrolytes are normal renal profile is normal and significantly improved over the last few days since admission. CPK is down further to 238. His acute abdominal series today is suggestive of intestinal ileus. However the patient told me that he had a good sized bowel movement earlier today. Hence no need for nasogastric tube and no need for surgical intervention. Not to mention the patient has no abdominal pain and no distention on 07/12/2018 patient seen in follow-up on selective care unit, he is awake and alert, in no acute distress, currently on 2 L per nasal cannula his pulse ox is 92%, afebrile, hemodynamically stable, denies any shortness of breath denies any chest pain. Has been working on incentive spirometer, denies any chest wall discomfort. patient is passing flatus. No nausea, did have an episode of emesis today. No abdominal bloating.Surgical services are following, The patient is seen today 07/13/2018 in follow-up on the selective care unit. He is awake and alert in no acute distress. He is currently resting comfortably in bed. Maintaining O2 saturations in the mid 90s on 3 L/m per nasal cannula. Blood culture reveals no growth. White count 15.1. Hemoglobin 9.4. Creatinine 1.07. Currently on bronchodilators and Levaquin. Continues to work with the incentive spirometer. The patient is seen today 07/15/2018 in follow-up on the selective care unit. He is awake and alert in no acute distress. Currently resting quite comfortably in bed. His pain is better controlled. He has some residual right- sided posterior chest discomfort now. He was found to have significant pleural effusions right greater than left. Ultrasound reveals a 12.2 cm pocket on the right. Blood cultures reveal no growth. Sodium 140. Potassium 3.1. Creatinine 1.00. He remains on bronchodilators, Levaquin, metronidazole. 0.9 normal saline at 50 MLS per hour. On today's evaluation of 07/16/2018 the patient was seen in the follow-up. The patient was doing well. He was using incentive spirometer. He was started on oxygen at 3 L per minute nasal cannula. We have marked the right-sided pleural effusion. I performed a bedside thoracentesis on this patient total of 1.5 L of pleural fluid was aspirated from the right lung. There was no evidence of any hemothorax. The pleural fluid with DrTristen bit yellowish in color. The fluid will be sent for cytology in addition to Gram stain and culture and chemical analysis including LDH , protein and glucose. The patient is doing extremely well for now. His pain is under good control. No altered mentation. Renal function stable. He is using a combination of Levaquin and Flagyl for any potential aspiration pneumonia. I feel that the pleural effusion that has developed are most likely reactive secondary to his fall and his poor inspiratory efforts. He has a right sided lung mass which needs to be followed up at a later stage and he may require a biopsy. Meanwhile the pleural fluid was sent cytology and this may potentially established diagnoses if the pleural fluid is malignant. The patient is seen today 07/17/2018 in follow-up on the regular medical floor. He is currently sitting up in the bedside having lunch. Awake and alert in no acute distress. He denies any worsening shortness of breath, cough or congestion. He is status post right-sided thoracentesis with 1.5 L of pleural fluid drained. Fluid analysis reveals transudate in nature as with total protein 1.7. LDH 167. Cytology is pending. He is maintaining good O2 saturations in the 90s on room air. He's been afebrile. Hemodynamically stable. Blood culture reveals no growth to date. White count 12.3. Hemoglobin 9.6. Creatinine 0.94. Objective - Vital Signs Vital signs: Vital Signs Temp 97.9 F 07/17/18 11:15 Pulse 72 07/17/18 12:20 Resp 16 07/17/18 11:15 BP 136/65 07/17/18 11:15 Pulse Ox 92 L 07/17/18 11:15 Intake & Output 07/16/18 07/17/18 07/17/18 18:59 06:59 18:59 Intake Total 582 Balance 582 Weight 82 kg 86.5 kg Intake: Oral 582 Other: Voiding Method Urinal # Voids 3 0 # Bowel Movements 1 - Exam GENERAL EXAM: Alert, frail 83-year-old, fairly comfortable in no apparent distress. On room air HEAD: Normocephalic. EYES: Normal reaction of pupils, equal size. NOSE: Clear with pink turbinates. THROAT: No erythema or exudates. NECK: No masses, no JVD. CHEST: No chest wall deformity. Tenderness to palpation. LUNGS: Equal air entry with faint crackles in the bilateral posterior bases more so on the right. Diminished. CVS: S1 and S2 normal with an audible murmur, irregular rhythm. ABDOMEN: No hepatosplenomegaly, normal bowel sounds, no guarding or rigidity. SPINE: No scoliosis or deformity SKIN: No rashes CENTRAL NERVOUS SYSTEM: No focal deficits, tone is normal in all 4 extremities. EXTREMITIES: There is no peripheral edema. No clubbing, no cyanosis. Peripheral pulses are intact. - Labs CBC & Chem 7: 07/17/18 06:11 07/17/18 06:11 Labs: Abnormal Lab Results - Last 24 Hours (Table) 07/17/18 07/17/18 Range/Units 06:11 06:11 WBC 12.3 H (3.8-10.6) k/uL RBC 3.14 L (4.30-5.90) m/uL Hgb 9.6 L (13.0-17.5) gm/dL Hct 29.9 L (39.0-53.0) % Neutrophils # 10.4 H (1.3-7.7) k/uL Lymphocytes # 0.8 L (1.0-4.8) k/uL Potassium 3.1 L (3.5-5.1) mmol/L Calcium 7.9 L (8.4-10.2) mg/dL Microbiology - Last 24 Hours (Table) 07/16/18 12:03 Gram Stain - Preliminary Pleural Fluid Body Fluid Culture - Preliminary 07/14/18 12:55 Blood Culture - Preliminary Blood No Growth after 48 hours Assessment and Plan Assessment: Impression: 1 hypotension secondary to blood pressure medications which are presently on hold, narcotics, and the dose has been cut down, and relative dehydration. resolved. 2 multiple rib fractures secondary to fall, fourth through seventh ribs on the right side. Now with bilateral pleural effusions right greater than left. Status post right-sided thoracentesis with 1.5 L of transudative fluid removed. Cytology pending. 3 acute pubic rami fracture secondary to fall. being followed by orthopedics 4 acute rhabdomyolysis and acute kidney injury related to rhabdomyolysis and also related to hypotension.improving with improved CPK level and improved creatinine/renal profile today. 5 right lung mass strongly suspicious for bronchogenic carcinoma, this will need to be addressed on an outpatient basis, may eventually consider CT-guided needle biopsy by interventional radiology. The mass seems to be abutting the right pleural surface. It is associated with subcarinal lymphadenopathy. 6 COPD, currently stable and inactive. 7 history of depression 8 chronic back pain 9 [id number] smoker, quit in 1979. 10 elevated troponin, nonspecific, being addressed by cardiology on the case. 11 dysphagia, Will arrange for GI consultation since the patient has abnormal modified barium swallow. Recommendation: The patient was seen and evaluated by Dr. Lackey. The patient did undergo a right-sided thoracentesis with 1.5 L removed. He is currently maintaining good O2 saturations in the 90s on room air. No worsening shortness of breath. Fluid analysis transudative. Cytology pending. We will increase his activity as tolerated. We'll continue to follow. I, the cosigning physician, performed a history & physical examination of the patient. Lungs sounds with some crackles in the bilateral bases. Maintaining good O2 saturations in the 90s on room air. I discussed the assessment and plan of care with my nurse practitioner, Cassidy Rincon. I attest to the above note as dictated by her.
--- NOTE | 2018-07-17 17:29 | PN ---
PROGRESS NOTE DATE OF SERVICE: 07/17/2018 This 83-year-old gentleman admitted with fall and pelvis fracture also had rhabdomyolysis. Patient also had paroxysmal atrial fibrillation. Patient also had right lower lobe pneumonia, pleural effusion. Dr. Lackey performed thoracocentesis with about 1500 mL of turbid yellow fluid. Cytology is pending is at this time. No chest pain. No palpitations. No fever. EXAM: Alert and oriented x3. Pulse 78. Blood pressure 136/72. Respirations 16, temperature 98.2, pulse ox 94% on room air. HEENT: Conjunctivae normal. NECK: No jugular venous distention. CARDIOVASCULAR: S1, S2 muffled. Respiratory: Breath sounds diminished in the bases. A few rhonchi. No crackles. ABDOMEN is soft, nontender. No mass palpable. Legs: No edema. No swelling. CENTRAL NERVOUS SYSTEM: No focal deficits. LAB STUDIES: WBC 10.2, hemoglobin 10.6, sodium 130. Potassium 3.1. ASSESSMENT: 1. Fall and acute pelvis fracture, right superior inferior pubic ramus fracture with severe pain and gait dysfunction. 2. Acute rhabdomyolysis. 3. Paroxysmal atrial fibrillation. 4. Status post thoracocentesis on the right side. 5. Increased WBC. 6. Possible right lower lobe pneumonia. 7. Right lung mass lesion with pleural effusion. 8. Abdomen distention, possibly ileus status post NG tube x3. 9. Severe hypotension. Monitor in ICU possibly secondary to dehydration, multifactorial. 10.Elevated troponin 1.176. 11.Indeterminate myocardial infarction unlikely per Cardiology. 12.Fever. 13.Elevated WBC. 14.Possible acute urinary tract infection present on admission. 15.Increased creatinine with possible acute renal failure with a baseline chronic kidney disease stage III. 16.Abdominal distention. 17.Anemia, normocytic anemia of chronic disease. 18.Diffuse colonic thickening in the CT scan. 19.History AST. 20.Gastroesophageal reflux disease. 21.Hypertension. 22.History of degenerative joint disease. 23.History of prostate disorder. 24.History of gout. 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 26.History of right lung cancer. 27.History of adenoidectomy. 28.History of major depression. 29.History of nicotine dependence. 30.NO CODE, NO CPR, NO VENT. RECOMMENDATIONS AND DISCUSSION: Recommend to continue current medications and monitor, symptomatic treatment. Otherwise as mentioned earlier the patient had thoracocentesis on the right. We will await the culture and cytology reports. Otherwise, closely follow with Dr. Lackey. Guarded prognosis. Further recommendations to follow. MMODL / IJN: [id number] /
[2018-07-17] MEDS: LEVOFLOXACIN 500MG-D5W PMX 500 MG in DEXTROSE/WATER 1 100ML.BAG IVPB SCH (19:20)
[2018-07-17] MEDS: LACTATED RINGERS 1,000 ML IV SCH (21:56)
[2018-07-18] MEDS: LORazepam 2 MG/ML INJ IV PRN (00:28)
[2018-07-18] MEDS: METOCLOPRAMIDE 5 MG/ML 2 ML VIAL IVP SCH ×5 (02:06→23:42)
[2018-07-18] MEDS: metroNIDAZOLE-NS PMX 500 MG in SALINE 1 100ML.BAG IVPB SCH ×3 (02:06→22:22)
[2018-07-18 07:03] LABS: Basophils % (A) 0 %; Eosinophils # (A) 0.5 k/uL (0-0.7); Eosinophils % (A) 4 %; HCT 28.4 % (39.0-53.0); HGB 9.3 gm/dL (13.0-17.5); Hypochromasia Moderate; Lymphocytes % (A) 7 %; MCH 30.8 pg (25.0-35.0); MCHC 32.6 g/dL (31.0-37.0); MCV 94.6 fL (80.0-100.0); Mean Platelet Volume 6.3; Monocytes # (A) 0.8 k/uL (0-1.0); Monocytes % (A) 6 %; Neutrophils # (A) 11.3 k/uL (1.3-7.7); Neutrophils % (A) 82 %; Platelet Count 282 k/uL (150-450); RDW 14.2 % (11.5-15.5); WBC 13.7 k/uL (3.8-10.6)
[2018-07-18 07:20] LABS: Calcium 7.7 mg/dL (8.4-10.2); Potassium 2.9 mmol/L (3.5-5.1)
[2018-07-18] MEDS: PANTOPRAZOLE 40 MG TABLET PO SCH ×2 (08:59→19:39)
[2018-07-18] MEDS: TAMSULOSIN 0.4 MG CAP.ER.24H PO SCH (08:59)
[2018-07-18] MEDS: POTASSIUM BICARBONATE/CIT AC 20 MEQ TABLET.EFF PO SCH ×3 (08:59→12:58)
[2018-07-18] MEDS: SUCRALFATE 1 GM TAB PO SCH ×3 (08:59→19:39)
[2018-07-18] MEDS: LIDOCAINE 5% PATCH TOPICAL SCH (09:00)
[2018-07-18] MEDS: IPRATROPIUM-ALBUTEROL 3 ML NEB INHALATION SCH ×3 (09:04→22:07)
[2018-07-18] MEDS: HYDROcodone/APAP 7.5-325MG 1 EACH TAB PO PRN ×3 (09:07→22:23)
[2018-07-18] MEDS: DOCUSATE 100 MG CAP PO SCH ×2 (10:44→21:09)
[2018-07-18] MEDS: SODIUM CHLORIDE 0.9% 1,000 ML IV SCH (10:49)
[2018-07-18] MEDS: MAGNESIUM SULFATE-D5W PMX 1 GM in DEXTROSE/WATER 1 100ML.BAG IVPB SCH ×3 (13:00→19:38)
--- NOTE | 2018-07-18 15:05 | P.PN ---
Subjective Progress Note Date: 07/18/18 brought to the emergency department on 07/06/2018 after sustaining a mechanical fall, patient tripped on a curb and fell onto his right hip. Afterwards patient had difficulty bearing weight, was unable to ambulate, and also had some discomfort in the right anterior ribs and abdomen. He didn't strike his head in the fall, but denied any loss of consciousness. No altered mentation, and no neurological deficits. X-ray of the hip and pelvis revealed right-sided pubic ramus fracture. CT of the chest, abdomen and pelvis showed moderate centrilobular emphysema, areas of interstitial scarring, and a suspicious right lower lobe mass measuring 5.2 cm with an enlarged 2.2 cm subcarinal lymph node. Subtle nondisplaced fractures of the right lateral fourth through seventh ribs. A lobulated 4.7 cm left kidney cyst. 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 CT of the head and cervical spine showed no acute fracture and no acute intracranial abnormality. EKG showed sinus rhythm with right bundle branch block, but no acute ischemic changes. 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 No past medical history of cancer. Denies any recent weight loss, appetite loss, no night sweats, no hemoptysis, no chest wall tenderness. 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 Patient's on is at the bedside, and he states patient has been experiencing falls at home , does ambulate with a walker. Currently patient is resting in bed, is having right-sided chest wall discomfort, worse with repositioning, but in no acute distress, pulse ox is 92% on 2 L per nasal cannula, is receiving pain medications, and has been noted to be hypotensive likely related to the effects of the narcotic analgesic. Afebrile. Lung sounds are diminished. No cough, no chest congestion. Patient's total CK was elevated at 2401, and has actually been trending up currently at 5529. Positive troponins of 0.218, 1.110, and 1.660, cardiology is following. Blood work showed a white blood cell count of 13.4, hemoglobin of 10.7, electrolytes were unremarkable, BUN was 28 and creatinine was 2.0 on admission. Plasma lactic acid is 1.0. Serum alcohol was less than 10, urine drug screen was positive for opiates, patient has a prescription for [place]. Were consulted in regards to the right lower lobe lung mass subcarinal adenopathy, suspicious for lung cancer. Patient was reevaluated today on 07/08/2018. Late afternoon yesterday, patient was transferred to the intensive care unit mostly because of persistent hypotension, and bradycardia arrhythmia with second degree AV block, Mobitz type I. His hypotension was felt to be multifactorial, mostly related to blood pressure medications, narcotics for pain control, and possibly relative dehydration. Patient was given fluids did not improve much, hence he was placed overnight on a small dose of norepinephrine. This morning he is off norepinephrine, blood pressure is much better controlled, and the patient is feeling better. He is complaining however of some difficulty swallowing and I recommended a modified barium swallow, patient is having difficulty swallowing solid food and liquids. Pain seems to be better controlled from his rib fractures. Labs were reviewed relatively normal CBC hemoglobin however is 9 electrolytes are normal BUN is up to 36 creatinine is 2.48. CPK which was initially elevated secondary to fall is coming down to 4406 today. Patient is still receiving fluids at 100 mL per hour. Urine output is reasonable without any diuretics at 40 mL per hour. Chest x-ray was reviewed, right lower lobe mass was again noted. And this was also noted on the CT of the chest. Reevaluated today on 07/09/2018, patient remains in the intensive care unit, but he is basically an overflow from selective. No further episodes of hypotension , no further episodes of bradycardia,he does have paroxysmal atrial fibrillation with episodes of second-degree AV block, Mobitz type I. Patient had videoscopic fluoroscopy for evaluation of dysphagia, and he was noted to havepenetration without aspiration of thin liquids however there was a significant reflux in proximal cervical esophagus. And the radiologist recommended esophagogram or evaluation by gastroenterology. Will consult gastroenterology for further evaluation of this issue.apparently his dysphagia has been a chronic issue. Labs today showed a relatively normal electrolytes renal functioning is improving creatinine is down to 1.51 from 2.48 yesterday. WBC count is 8.4 hemoglobin is 8.5, liver enzymes are improving. CPK is down to 941 The patient is seen today 07/10/2018 in follow-up on the selective care unit. He is awake and alert in no acute distress. He is maintaining good O2 saturations in the 90s on 4 L/m per nasal cannula. He is afebrile. Hemodynamically stable. White count 8.5. Hemoglobin 8.6. Creatinine 1.20. Creatinine kinase down to 331. AST 86, ALT 103. He has been initiated on Eliquis per cardiology for paroxysmal atrial fibrillation. Continue to monitor heart rhythm. Reevaluated today on 07/11/2018, patient is doing well from the pulmonary perspective. However continues to have lots of GI symptoms and unable to swallow. I did consult GI again, and hopefully the patient could have for GI evaluation and possible EGD in the next 24 hours. Patient denies any shortness of breath, no cough, no wheezing, denies any fever, no chills, no hemoptysis. His right-sided chest pain related to his fractures seems to be under control. WBC count is 11.4 hemoglobin is 9.1. His electrolytes are normal renal profile is normal and significantly improved over the last few days since admission. CPK is down further to 238. His acute abdominal series today is suggestive of intestinal ileus. However the patient told me that he had a good sized bowel movement earlier today. Hence no need for nasogastric tube and no need for surgical intervention. Not to mention the patient has no abdominal pain and no distention on 07/12/2018 patient seen in follow-up on selective care unit, he is awake and alert, in no acute distress, currently on 2 L per nasal cannula his pulse ox is 92%, afebrile, hemodynamically stable, denies any shortness of breath denies any chest pain. Has been working on incentive spirometer, denies any chest wall discomfort. patient is passing flatus. No nausea, did have an episode of emesis today. No abdominal bloating.Surgical services are following, The patient is seen today 07/13/2018 in follow-up on the [facility] care unit. He is awake and alert in no acute distress. He is currently resting comfortably in bed. Maintaining O2 saturations in the mid 90s on 3 L/m per nasal cannula. Blood culture reveals no growth. White count 15.1. Hemoglobin 9.4. Creatinine 1.07. Currently on bronchodilators and Levaquin. Continues to work with the incentive spirometer. The patient is seen today 07/15/2018 in follow-up on the selective care unit. He is awake and alert in no acute distress. Currently resting quite comfortably in bed. His pain is better controlled. He has some residual right- sided posterior chest discomfort now. He was found to have significant pleural effusions right greater than left. Ultrasound reveals a 12.2 cm pocket on the right. Blood cultures reveal no growth. Sodium 140. Potassium 3.1. Creatinine 1.00. He remains on bronchodilators, Levaquin, metronidazole. 0.9 normal saline at 50 MLS per hour. On today's evaluation of 07/16/2018 the patient was seen in the follow-up. The patient was doing well. He was using incentive spirometer. He was started on oxygen at 3 L per minute nasal cannula. We have marked the right-sided pleural effusion. I performed a bedside thoracentesis on this patient total of 1.5 L of pleural fluid was aspirated from the right lung. There was no evidence of any hemothorax. The pleural fluid with Dr. bit yellowish in color. The fluid will be sent for cytology in addition to Gram stain and culture and chemical analysis including LDH , protein and glucose. The patient is doing extremely well for now. His pain is under good control. No altered mentation. Renal function stable. He is using a combination of Levaquin and Flagyl for any potential aspiration pneumonia. I feel that the pleural effusion that has developed are most likely reactive secondary to his fall and his poor inspiratory efforts. He has a right sided lung mass which needs to be followed up at a later stage and he may require a biopsy. Meanwhile the pleural fluid was sent cytology and this may potentially established diagnoses if the pleural fluid is malignant. The patient is seen today 07/17/2018 in follow-up on the regular medical floor. He is currently sitting up in the bedside having lunch. Awake and alert in no acute distress. He denies any worsening shortness of breath, cough or congestion. He is status post right-sided thoracentesis with 1.5 L of pleural fluid drained. Fluid analysis reveals transudate in nature as with total protein 1.7. LDH 167. Cytology is pending. He is maintaining good O2 saturations in the 90s on room air. He's been afebrile. Hemodynamically stable. Blood culture reveals no growth to date. White count 12.3. Hemoglobin 9.6. Creatinine 0.94. On 07/18/2018, I'm seeing this patient for a follow-up. He is resting comfortably in bed. No respiratory distress. The fluid cytology still pending for now. He was, the fluid LDH was low at 167. The fluid protein was also low at 1.7. The fluid glucose was 112. This is most likely a transudate rather than exudate. The patient's potassium level is at 2.9 and this is to be replaced. He is on room air oxygen. Pain is under good control. No altered mentation. No other significant events otherwise for now. Objective - Vital Signs Vital signs: Vital Signs Temp 98.5 F 07/18/18 08:00 Pulse 78 07/18/18 12:51 Resp 17 07/18/18 08:00 BP 143/72 07/18/18 08:00 Pulse Ox 92 L 07/18/18 08:00 Intake & Output 07/17/18 07/18/18 07/18/18 18:59 06:59 18:59 Intake Total 222 822 700 Output Total 350 700 Balance -128 822 0 Weight 84.5 kg Intake: IV 200 Sodium Chloride 0.9% 1, 200 000 ml @ 50 mls/hr IV . Q20H ROM Rx#:[id number] Intake, IV Titration 600 100 Amount Sodium Chloride 0.9% 1, 500 000 ml @ 50 mls/hr IV . Q20H ROM Rx#:[id number] metroNIDAZOLE-NS PMX 500 100 100 mg In Saline 1 100ml.bag @ 100 mls/hr IVPB Q8HR ROM Rx#:[id number] Oral 222 222 400 Output: Urine 350 700 Other: Voiding Method Urinal Bedside Commode Bedside Commode Urinal Urinal Diaper Diaper # Voids 0 1 1 - Exam GENERAL EXAM: Alert, frail 83-year-old, fairly comfortable in no apparent distress. On 3 L nasal cannula HEAD: Normocephalic. EYES: Normal reaction of pupils, equal size. NOSE: Clear with pink turbinates. THROAT: No erythema or exudates. NECK: No masses, no JVD. CHEST: No chest wall deformity. Tenderness to palpation. LUNGS: Equal air entry with crackles in the bilateral posterior bases more so on the right. Diminished rest on the right lung base which improved following the thoracentesis CVS: S1 and S2 normal with an audible murmur, irregular rhythm. ABDOMEN: No hepatosplenomegaly, normal bowel sounds, no guarding or rigidity. SPINE: No scoliosis or deformity SKIN: No rashes CENTRAL NERVOUS SYSTEM: No focal deficits, tone is normal in all 4 extremities. EXTREMITIES: There is no peripheral edema. No clubbing, no cyanosis. Peripheral pulses are intact. - Labs CBC & Chem 7: 07/18/18 06:22 07/18/18 06:22 Labs: Abnormal Lab Results - Last 24 Hours (Table) 07/18/18 07/18/18 07/18/18 Range/Units 06:22 06:22 06:22 WBC 13.7 H (3.8-10.6) k/uL RBC 3.00 L (4.30-5.90) m/uL Hgb 9.3 L (13.0-17.5) gm/dL Hct 28.4 L (39.0-53.0) % Neutrophils # 11.3 H (1.3-7.7) k/uL Sodium 134 L (137-145) mmol/L Potassium 2.9 L (3.5-5.1) mmol/L BUN 8 L (9-20) mg/dL Calcium 7.7 L (8.4-10.2) mg/dL Magnesium 1.3 L (1.6-2.3) mg/dL Microbiology - Last 24 Hours (Table) 07/16/18 12:03 Gram Stain - Preliminary Pleural Fluid Body Fluid Culture - Preliminary 07/14/18 12:55 Blood Culture - Preliminary Blood No Growth after 72 hours Assessment and Plan Plan: Impression: 1 right-sided pleural effusion moderate in size, postthoracentesis and evacuation of 1.5 L of pleural fluid. The patient has a right lower lobe mass. The fluid is a transudate. Awaiting fluid cytology. Currently on room air oxygen without any signs of any respiratory distress. 2 multiple rib fractures secondary to fall, fourth through seventh ribs on the right side. Now with bilateral pleural effusions right greater than left. 3 acute pubic rami fracture secondary to fall. being followed by orthopedics 4 acute rhabdomyolysis and acute kidney injury related to rhabdomyolysis and also related to hypotension.improving with improved CPK level and improved creatinine/renal profile today. 5 right lung mass strongly suspicious for bronchogenic carcinoma, this will need to be addressed on an outpatient basis, may eventually consider CT-guided needle biopsy by interventional radiology. The mass seems to be abutting the right pleural surface. It is associated with subcarinal lymphadenopathy. 6 COPD, currently stable and inactive. 7 history of depression 8 chronic back pain 9 [id number] smoker, quit in 1979. 10 elevated troponin, nonspecific, being addressed by cardiology on the case. 11 dysphagia, improved and the patient is tolerating his diet. Plan We will be awaiting the fluid cytology results. Meanwhile, the patient is being arranged to go to [facility] for further rehabilitation. Renal function is been within normal limits. The rhabdomyolysis recovered. The patient's pain is under good control. The patient has a right lower lobe mass that needs to be followed up on outpatient basis and there is a obvious concerns for an underlying malignancy.
[2018-07-18] MEDS ORDERED: FUROSEMIDE 10 MG/ML 2 ML VIAL IV STA (16:33)
[2018-07-18] MEDS ORDERED: POTASSIUM CHLORIDE ER 20 MEQ TAB.ER PO STA (16:34)
[2018-07-18 17:39] LABS: Potassium 3.4 mmol/L (3.5-5.1)
--- NOTE | 2018-07-18 18:06 | PN ---
PROGRESS NOTE DATE OF SERVICE: 07/18/2018 This 83-year-old gentleman who was admitted with fall and pelvic fracture is also being closely monitored. Patient also had features of rhabdomyolysis and paroxysmal atrial fibrillation also. No chest pain. No palpitations. No fever. EXAM: Alert and oriented x3. The pulse is 80. Blood pressure 143/72, respirations 17 , temp 98.4, pulse ox 92 percent on room air. HEENT: Conjunctivae normal. NECK: No jugular venous distention. CARDIOVASCULAR: S1, S2 muffled. RESPIRATORY: Breath sounds diminished in the bases. A few scattered rhonchi. Abdomen soft, obese, nontender. Slightly distended noted. No guarding. No rigidity. There is no mass palpable. Legs: Minimal edema. CENTRAL NERVOUS SYSTEM: No focal deficits. LABS: At this time shows WBC 13.2, hemoglobin 9.2, sodium 132, potassium 2.9, and magnesium 1.3. UA noted. ASSESSMENT: 1. Fall and acute pelvis fracture, right superior and inferior pubic ramus fracture with severe pain and gait dysfunction. 2. Acute rhabdomyolysis. 3. Paroxysmal atrial fibrillation. 4. Status post thoracocentesis of the right side. 5. Increased WBC. 6. Possible right lower lobe pneumonia. 7. Right lung mass with pleural effusion. Patient refused further workup. 8. Abdominal distention, possibly due status post NG tube x3. 9. Severe hypotension, monitor in ICU secondary to dehydration, multifactorial at the time of admission. 10.Elevated troponin 1.16 indeterminate possibly from rhabdomyolysis. 11.Hypokalemia, severe. 12.Hypomagnesemia. 13.Fever. 14.Elevated WBC. 15.Possible acute urinary tract infection present on admission. 16.Increased creatinine with possible acute renal failure with acute on chronic kidney disease with baseline chronic kidney disease stage III. 17.Abdominal distention with ileus. 18.Anemia, normocytic anemia of chronic disease. 19.Diffuse colonic thickening in the CT scan. 20.Increased AST. 21.Gastroesophageal reflux disease. 22.Hypertension. 23.History of degenerative joint disease. 24.History of prostate disorder. 25.History of gout. 26.History of asbestos exposure. 27.History of right lung cancer. 28.History of adenoidectomy. 30.NO CODE, NO CPR, NO VENT. RECOMMENDATIONS AND DISCUSSION: Recommend to continue current medications, monitoring and symptomatic treatment. Otherwise, at this time, I recommend continue with current medications. Continue with symptomatic treatment. Replace potassium. Otherwise PT/OT evaluation, possible ECF rehab. Further recommendations to follow. The most recent chest x-ray await pleural fluid studies. The most recent chest x-ray was reviewed. MMODL / IJN: [id number] / MTDD
[2018-07-18] MEDS ORDERED: POTASSIUM BICARBONATE/CIT AC 20 MEQ TABLET.EFF PO ONE (19:15)
[2018-07-18] MEDS: LACTATED RINGERS 1,000 ML IV SCH (21:05)
[2018-07-18] MEDS: HEPARIN SODIUM,PORCINE 5,000 UNIT/ML 1 ML VIAL SQ SCH (21:09)
[2018-07-18] MEDS: LEVOFLOXACIN 500MG-D5W PMX 500 MG in DEXTROSE/WATER 1 100ML.BAG IVPB SCH (21:16)
[2018-07-19] MEDS: HYDROcodone/APAP 7.5-325MG 1 EACH TAB PO PRN ×2 (06:08→16:22)
[2018-07-19] MEDS: metroNIDAZOLE-NS PMX 500 MG in SALINE 1 100ML.BAG IVPB SCH (06:09)
[2018-07-19] MEDS: METOCLOPRAMIDE 5 MG/ML 2 ML VIAL IVP SCH ×2 (06:09→13:35)
[2018-07-19 07:24] LABS: Basophils % (A) 0 %; Eosinophils # (A) 0.4 k/uL (0-0.7); Eosinophils % (A) 3 %; HCT 32.2 % (39.0-53.0); HGB 10.1 gm/dL (13.0-17.5); Hypochromasia Moderate; Lymphocytes # (A) 0.9 k/uL (1.0-4.8); Lymphocytes % (A) 7 %; MCH 30.1 pg (25.0-35.0); MCHC 31.5 g/dL (31.0-37.0); MCV 95.7 fL (80.0-100.0); Mean Platelet Volume 6.1; Monocytes # (A) 0.9 k/uL (0-1.0); Monocytes % (A) 7 %; Neutrophils # (A) 10.6 k/uL (1.3-7.7); Neutrophils % (A) 81 %; Platelet Count 298 k/uL (150-450); RBC 3.37 m/uL (4.30-5.90); RDW 14.2 % (11.5-15.5)
[2018-07-19 07:39] LABS: Magnesium 1.8 mg/dL (1.6-2.3); Potassium 3.4 mmol/L (3.5-5.1)
[2018-07-19] MEDS: IPRATROPIUM-ALBUTEROL 3 ML NEB INHALATION SCH ×2 (08:37→13:42)
[2018-07-19] MEDS: TAMSULOSIN 0.4 MG CAP.ER.24H PO SCH (09:18)
[2018-07-19] MEDS: DOCUSATE 100 MG CAP PO SCH (09:18)
[2018-07-19] MEDS: SUCRALFATE 1 GM TAB PO SCH ×2 (09:21→13:35)
[2018-07-19] MEDS: LIDOCAINE 5% PATCH TOPICAL SCH (09:21)
[2018-07-19] MEDS: HEPARIN SODIUM,PORCINE 5,000 UNIT/ML 1 ML VIAL SQ SCH (09:21)
[2018-07-19] MEDS: PANTOPRAZOLE 40 MG TABLET PO SCH (09:21)
--- NOTE | 2018-07-19 13:46 | P.DS ---
Providers Date of admission: 07/06/18 17:07 Attending physician: Radha Sam Consults: 07/06/18 17:07 Consult Physician Routine Consulting Provider: Laura Zamudio Consult Reason/Comments: Rib fractures, lung mass Do you want consulting provider notified?: Yes Consult Physician Routine Consulting Provider: Bhanu Chaney Consult Reason/Comments: Pubic rami and sacral fracture Do you want consulting provider notified?: Yes Consult Physician Routine Consulting Provider: Antony Ewing Consult Reason/Comments: cardiac evaluation Do you want consulting provider notified?: Yes Consult Physician Stat Consulting Provider: Mio Wilks Consult Reason/Comments: fall Do you want consulting provider notified?: Already Contacted Consult to Anesthesia Routine Consulting Provider: Anesthesia,Services Consult Reason/Comments: Rib fractures 07/07/18 14:34 Consult Physician Urgent Consulting Provider: Destinee Rosenberg Consult Reason/Comments: hypotention Do you want consulting provider notified?: Yes, Notify in am [facility] Course: Final diagnoses Fall and acute pelvis fracture right superior inferior pubic ramus fracture with severe pain and gait dysfunction. Acute rhabdomyolysis Paroxysmal atrial fibrillation Status post thoracocentesis of the right side Increased WBC Possible right lower lobe pneumonia Right lung mass with the pleural effusion patient refused further workup Abdominal distention possibly due to ileus status post NG tube 3 improving Severe hypotension monitored in ICU secondary to dehydration multifactorial at the time of admission improved Elevated troponin 1.16 indeterminate possibly from rhabdomyolysis no evidence of myocardial infarction per cardiology Hypokalemia. Hypomagnesemia Fever Elevated WBC Possible acute UTI present on admission Increased creatinine with a possible acute renal failure with acute on chronic kidney disease with a baseline chronic kidney disease stage III Abdominal distention improved Anemia normocytic anemia of chronic disease Diffuse colonic thickening the CAT scan Increased AST GERD Hypertension History of DJD History of prostate disorder History of gout History of asbestos exposure History of right lung cancer History adenoidectomy No code no CPR no event History of present illness this 83-year-old gentleman with a past medical history of multiple medical problems as mentioned earlier being followed by Dr. Ruiz in the outpatient setting was admitted to fall and pelvic fracture. Patient has severe pain patient was treated symptomatically. Patient multiple complications as listed above during the hospitalization Patient was monitored in ICU for some time. Patient was seen by multiple consultants during the hospitalization. Patient was treated with bronchodilators antibiotics. Patient is stabilized. Patient also had a period of abdominal ileus which is also treated this symptomatically. Overall patient makes significant improvement. Dr. zamudio and also did thoracocentesis from the right chest with the pleural fluid aspiration. Final reports are pending at this time. the patient would not want anymore further workup of the lung lesion. On exam vitals are stable. Cardio S1 and S2. Respirator system. Few scattered rhonchi. Abdomen soft nontender no mass palpable nervous system no focal deficit The patient be transferred to [facility] on the [place] under Dr. Kc for further evaluation and treatment. Recommend close follow-up with Dr. Ruiz after discharge from [facility]. Please refer to the discharge sheet for list of medications. Plan - Discharge Summary Discharge Rx Participant: No New Discharge Prescriptions: New Bisacodyl [Dulcolax] 5 mg PO DAILY PRN tablet. PRN Reason: Constipation Docusate [Colace] 100 mg PO BID cap Heparin Sodium,Porcine [Heparin Sodium] 5,000 unit SQ Q12HR vial HYDROcodone/APAP 7.5-325MG [Monon 7.5-325] 1 each PO Q6H PRN #8 tab PRN Reason: Moderate Pain Ipratropium-Albuterol Nebulize [Duoneb 0.5 mg-3 mg/3 ml Soln] 3 ml INHALATION RT-TID PRN ampul.neb PRN Reason: Shortness Of Breath Or Wheezing Lidocaine 5% Patch [Lidoderm 5% Patch] 1 patch TOPICAL DAILY patch Pantoprazole [Protonix] 40 mg PO AC-BID tablet. Sucralfate [Carafate] 1 gm PO AC-TID tab Tetrahydrozoline 0.05% Ophth [Visine Eye Drops] 2 drops BOTH EYES QID PRN ml PRN Reason: Eye Irritation Continue Simvastatin [Zocor] 80 mg PO HS Omeprazole [PriLOSEC] 20 mg PO AC-BRKFST amLODIPine [Norvasc] 5 mg PO DAILY Citalopram Hydrobromide [Citalopram HBr] 40 mg PO DAILY Tamsulosin HCl [Flomax] 0.4 mg PO DAILY Metoprolol Tartrate [Lopressor] 50 mg PO BID Discontinued HYDROcodone/APAP 10-325MG [Monon 10] 1 tab PO Q4H Discharge Medication List Citalopram Hydrobromide [Citalopram HBr] 40 mg PO DAILY 09/24/13 [History] Omeprazole [PriLOSEC] 20 mg PO AC-BRKFST 09/24/13 [History] Simvastatin [Zocor] 80 mg PO HS 09/24/13 [History] amLODIPine [Norvasc] 5 mg PO DAILY 09/24/13 [History] Metoprolol Tartrate [Lopressor] 50 mg PO BID 07/06/18 [History] Tamsulosin HCl [Flomax] 0.4 mg PO DAILY 07/06/18 [History] Bisacodyl [Dulcolax] 5 mg PO DAILY PRN tablet. 07/19/18 [Rx] Docusate [Colace] 100 mg PO BID cap 07/19/18 [Rx] HYDROcodone/APAP 7.5-325MG [Monon 7.5-325] 1 each PO Q6H PRN #8 tab 07/19/18 [Rx ] Heparin Sodium,Porcine [Heparin Sodium] 5,000 unit SQ Q12HR vial 07/19/18 [Rx] Ipratropium-Albuterol Nebulize [Duoneb 0.5 mg-3 mg/3 ml Soln] 3 ml INHALATION RT -TID PRN ampul.neb 07/19/18 [Rx] Lidocaine 5% Patch [Lidoderm 5% Patch] 1 patch TOPICAL DAILY patch 07/19/18 [Rx ] Pantoprazole [Protonix] 40 mg PO AC-BID tablet. 07/19/18 [Rx] Sucralfate [Carafate] 1 gm PO AC-TID tab 07/19/18 [Rx] Tetrahydrozoline 0.05% Ophth [Visine Eye Drops] 2 drops BOTH EYES QID PRN ml [Rx] Follow up Appointment(s)/Referral(s): Bhanu Chaney DO [Doctor of Osteopathic Medicine] - 2 Weeks Conrad Corey DO [Primary Care Provider] - 1-2 days Activity/Diet/Wound Care/Special Instructions: [facility] discharge instructions: 1. Weight-bear as tolerated, recommend use of walker at all times 2. Follow-up with [facility] in [address] Chaney for x-ray evaluation
[2018-07-19] MEDS ORDERED: metroNIDAZOLE-NS PMX 500 MG in SALINE 1 100ML.BAG IVPB SCH (14:00)
[2018-07-19 15:36] VITALS: BP 144/72; PULSE 75; RESP 18; TEMP 98
--- NOTE | 2018-07-19 16:05 | P.PN ---
Subjective Progress Note Date: 07/19/18 Principal diagnosis: status post fall, and multiple right-sided rib fractures, acute rhabdomyolysis, hypotension secondary AV block Mobitz type I Amarais 83-year-old white male patient that follows at the [facility], who was brought to the emergency department on 07/06/2018 after sustaining a mechanical fall, patient tripped on a curb and fell onto his right hip. Afterwards patient had difficulty bearing weight, was unable to ambulate, and also had some discomfort in the right anterior ribs and abdomen. He didn't strike his head in the fall, but denied any loss of consciousness. No altered mentation, and no neurological deficits. X-ray of the hip and pelvis revealed right-sided pubic ramus fracture. CT of the chest, abdomen and pelvis showed moderate centrilobular emphysema, areas of interstitial scarring, and a suspicious right lower lobe mass measuring 5.2 cm with an enlarged 2.2 cm subcarinal lymph node. Subtle nondisplaced fractures of the right lateral fourth through seventh ribs. A lobulated 4.7 cm left kidney cyst. 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 CT of the head and cervical spine showed no acute fracture and no acute intracranial abnormality. EKG showed sinus rhythm with right bundle branch block, but no acute ischemic changes. 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 No past medical history of cancer. Denies any recent weight loss, appetite loss, no night sweats, no hemoptysis, no chest wall tenderness. Other medical history includes hypertension, hyperlipidemia, chronic kidney disease, patient used to follow with a densitometer reader, past history of EtOH abuse currently in remission, chronic back pain, GERD/reflux, depression. Patient's on is at the bedside, and he states patient has been experiencing falls at home, does ambulate with a walker. Currently patient is resting in bed, is having right-sided chest wall discomfort, worse with repositioning, but in no acute distress, pulse ox is 92% on 2 L per nasal cannula, is receiving pain medications, and has been noted to be hypotensive likely related to the effects of the narcotic analgesic. Afebrile. Lung sounds are diminished. No cough, no chest congestion. Patient's total CK was elevated at 2401, and has actually been trending up currently at 5529. Positive troponins of 0.218, 1.110, and 1.660, cardiology is following. Blood work showed a white blood cell count of 13.4, hemoglobin of 10.7, electrolytes were unremarkable, BUN was 28 and creatinine was 2.0 on admission. Plasma lactic acid is 1.0. Serum alcohol was less than 10, urine drug screen was positive for opiates, patient has a prescription for [place]ard. Were consulted in regards to the right lower lobe lung mass subcarinal adenopathy, suspicious for lung cancer. Patient was reevaluated today on 07/08/2018. Late afternoon yesterday, patient was transferred to the intensive care unit mostly because of persistent hypotension, and bradycardia arrhythmia with second degree AV block, Mobitz type I. His hypotension was felt to be multifactorial, mostly related to blood pressure medications, narcotics for pain control, and possibly relative dehydration. Patient was given fluids did not improve much, hence he was placed overnight on a small dose of norepinephrine. This morning he is off norepinephrine, blood pressure is much better controlled, and the patient is feeling better. He is complaining however of some difficulty swallowing and I recommended a modified barium swallow, patient is having difficulty swallowing solid food and liquids. Pain seems to be better controlled from his rib fractures. Labs were reviewed relatively normal CBC hemoglobin however is 9 electrolytes are normal BUN is up to 36 creatinine is 2.48. CPK which was initially elevated secondary to fall is coming down to 4406 today. Patient is still receiving fluids at 100 mL per hour. Urine output is reasonable without any diuretics at 40 mL per hour. Chest x-ray was reviewed, right lower lobe mass was again noted. And this was also noted on the CT of the chest. Reevaluated today on 07/09/2018, patient remains in the intensive care unit, but he is basically an overflow from selective. No further episodes of hypotension , no further episodes of bradycardia,he does have paroxysmal atrial fibrillation with episodes of second-degree AV block, Mobitz type I. Patient had videoscopic fluoroscopy for evaluation of dysphagia, and he was noted to havepenetration without aspiration of thin liquids however there was a significant reflux in proximal cervical esophagus. And the radiologist recommended esophagogram or evaluation by gastroenterology. Will consult gastroenterology for further evaluation of this issue.apparently his dysphagia has been a chronic issue. Labs today showed a relatively normal electrolytes renal functioning is improving creatinine is down to 1.51 from 2.48 yesterday. WBC count is 8.4 hemoglobin is 8.5, liver enzymes are improving. CPK is down to 941 The patient is seen today 07/10/2018 in follow-up on the selective care unit. He is awake and alert in no acute distress. He is maintaining good O2 saturations in the 90s on 4 L/m per nasal cannula. He is afebrile. Hemodynamically stable. White count 8.5. Hemoglobin 8.6. Creatinine 1.20. Creatinine kinase down to 331. AST 86, ALT 103. He has been initiated on Eliquis per cardiology for paroxysmal atrial fibrillation. Continue to monitor heart rhythm. Reevaluated today on 07/11/2018, patient is doing well from the pulmonary perspective. However continues to have lots of GI symptoms and unable to swallow. I did consult GI again, and hopefully the patient could have for GI evaluation and possible EGD in the next 24 hours. Patient denies any shortness of breath, no cough, no wheezing, denies any fever, no chills, no hemoptysis. His right-sided chest pain related to his fractures seems to be under control. WBC count is 11.4 hemoglobin is 9.1. His electrolytes are normal renal profile is normal and significantly improved over the last few days since admission. CPK is down further to 238. His acute abdominal series today is suggestive of intestinal ileus. However the patient told me that he had a good sized bowel movement earlier today. Hence no need for nasogastric tube and no need for surgical intervention. Not to mention the patient has no abdominal pain and no distention on 07/12/2018 patient seen in follow-up on selective care unit, he is awake and alert, in no acute distress, currently on 2 L per nasal cannula his pulse ox is 92%, afebrile, hemodynamically stable, denies any shortness of breath denies any chest pain. Has been working on incentive spirometer, denies any chest wall discomfort. patient is passing flatus. No nausea, did have an episode of emesis today. No abdominal bloating.Surgical services are following On 07/19/2016 patient seen in follow-up on medical surgical floor. He is resting comfortably in bed, no specific complaints, no plaints of pain in his chest, complaining of some hip discomfort, but no distress. Room air pulse ox is 93%, patient is afebrile, hemodynamically patient is stable, and on his incentive spirometer, owns are diminished, patient is status post right-sided thoracentesis with removal of 1500 mL of pleural fluid, and the fluid was found to be transudative. Pleural fluid cultures are negative thus far, blood cultures are negative. Objective - Vital Signs Vital signs: Vital Signs Temp 98.0 F 07/19/18 15:35 Pulse 75 07/19/18 15:35 Resp 18 07/19/18 15:35 BP 144/72 07/19/18 15:35 Pulse Ox 93 L 07/19/18 15:35 Intake & Output 07/18/18 07/19/18 07/19/18 18:59 06:59 18:59 Intake Total 700 400 Output Total 1050 Balance -350 400 Weight 83 kg Intake: IV 200 Sodium Chloride 0.9% 1, 200 000 ml @ 50 mls/hr IV . Q20H ROM Rx#:[id number] Intake, IV Titration 100 300 Amount Levofloxacin 500Mg-D5w 100 Pmx 500 mg In Dextrose/ Water 1 100ml.bag @ 100 mls/hr IVPB Q24H ROM Rx#: [id number] Magnesium Sulfate-D5w Pmx 100 1 gm In Dextrose/Water 1 100ml.bag @ 100 mls/hr IVPB Q1H ROM Rx#: [id number] metroNIDAZOLE-NS PMX 500 100 100 mg In Saline 1 100ml.bag @ 100 mls/hr IVPB Q8HR ROM Rx#:[id number] Oral 400 100 Output: Urine 1050 Other: Voiding Method Bedside Commode Bedside Commode Bedside Commode Urinal Urinal Urinal Diaper Diaper Diaper Incontinent Incontinent # Voids 1 1 # Bowel Movements 2 1 - Exam GENERAL EXAM: Alert, pleasant, 83-year-old white male 2 L per nasal cannula with a pulse ox of 92%, comfortable in no apparent distress. HEAD: Normocephalic/atraumatic. EYES: Normal reaction of pupils, equal size. Conjunctiva pink, sclera white. NOSE: Clear with pink turbinates. THROAT: No erythema or exudates. NECK: No masses, no JVD, no thyroid enlargement, no adenopathy. CHEST: No chest wall deformity. Symmetrical expansion. LUNGS: Equal air entry with no crackles, wheeze, rhonchi or dullness. CVS: Regular rate and rhythm, normal S1 and S2, no gallops, no murmurs, no rubs ABDOMEN: Soft, nontender. No hepatosplenomegaly, normal bowel sounds, no guarding or rigidity. EXTREMITIES: No clubbing, no edema, no cyanosis, 2+ pulses and upper and lower extremities. MUSCULOSKELETAL: Muscle strength and tone normal. SPINE: No scoliosis or deformity SKIN: No rashes CENTRAL NERVOUS SYSTEM: Alert and oriented -3. No focal deficits, tone is normal in all 4 extremities. PSYCHIATRIC: Alert and oriented -3. Appropriate affect. Intact judgment and insight. - Labs CBC & Chem 7: 07/19/18 06:51 07/19/18 06:51 Labs: Abnormal Lab Results - Last 24 Hours (Table) 07/18/18 07/19/18 07/19/18 Range/Units 16:55 06:51 06:51 WBC 13.0 H (3.8-10.6) k/uL RBC 3.37 L (4.30-5.90) m/uL Hgb 10.1 L (13.0-17.5) gm/dL Hct 32.2 L (39.0-53.0) % Neutrophils # 10.6 H (1.3-7.7) k/uL Lymphocytes # 0.9 L (1.0-4.8) k/uL Sodium 135 L 136 L (137-145) mmol/L Potassium 3.4 L 3.4 L (3.5-5.1) mmol/L BUN 7 L (9-20) mg/dL Glucose 105 H (74-99) mg/dL Calcium 8.0 L (8.4-10.2) mg/dL Microbiology - Last 24 Hours (Table) 07/14/18 12:55 Blood Culture - Preliminary Blood No Growth after 120 hours 07/16/18 12:03 Gram Stain - Preliminary Pleural Fluid Body Fluid Culture - Preliminary Assessment and Plan Plan: Assessment: 1 right-sided pleural effusion moderate in size, postthoracentesis and evacuation of 1.5 L of pleural fluid. The patient has a right lower lobe mass. The fluid is a transudate. Awaiting fluid cytology. Currently on room air oxygen without any signs of any respiratory distress. 2 multiple rib fractures secondary to fall, fourth through seventh ribs on the right side. Now with bilateral pleural effusions right greater than left. 3 acute pubic rami fracture secondary to fall. being followed by orthopedics 4 acute rhabdomyolysis and acute kidney injury related to rhabdomyolysis and also related to hypotension.improving with improved CPK level and improved creatinine/renal profile today. 5 right lung mass strongly suspicious for bronchogenic carcinoma, this will need to be addressed on an outpatient basis, may eventually consider CT-guided needle biopsy by interventional radiology. The mass seems to be abutting the right pleural surface. It is associated with subcarinal lymphadenopathy. 6 COPD, currently stable and inactive. 7 history of depression 8 chronic back pain 9 [id number] smoker, quit in 1979. 10 elevated troponin, nonspecific, being addressed by cardiology on the case. 11 dysphagia, improved and the patient is tolerating his diet. Plan: Patient is doing well, no specific complaints, on room air, maintaining stable oxygenation, pleural fluid cultures remain negative thus far, pleural fluid was transudative, cytology still pending, vital signs are stable, patient is stable for transfer to [facility] [place] from pulmonary perspective, he will need a appointment in the outpatient setting for the right lung mass. Follow-up with Dr. Lackey in 4 weeks, or after discharge from the subacute rehab I performed a history & physical examination of the patient and discussed their management with my nurse practitioner, Sheri Rios. I reviewed the nurse practitioner's note and agree with the documented findings and plan of care. Lung sounds are positive for diminished. The findings and the impression was discussed with the patient. I attest to the documentation by the nurse practitioner. Time with Patient: Less than 30
[2018-07-19 16:29] VITALS: BMI 28.6
[2018-07-19] MEDS ORDERED: LEVOFLOXACIN 500 MG TAB PO SCH (21:00)
[2018-07-19] MEDS ORDERED: metroNIDAZOLE 500 MG TAB PO SCH (22:00)
== END 2018-07-19 17:37 | DRG 551 ==
LOC: EC 13:25 → 3SCARD 17:07 → 2SICU 07-07 18:59 → 3SCARD 07-09 17:15 → 4SSUR 07-17 10:50
PROVIDERS: ADMIT Internal Medicine; ATTEND Internal Medicine
PROC: 0DB68ZZ Excision of Stomach, Via Natural or Artificial Opening Endoscopic (ICD-10-PCS; principal; 2018-07-15 08:00)
PROC: 0W993ZZ Drainage of Right Pleural Cavity, Percutaneous Approach (ICD-10-PCS; 2018-07-16)
DX: S32.10XA Unspecified fracture of sacrum, initial encounter for closed fracture (principal); J18.9 Pneumonia, unspecified organism; S32.591A Other specified fracture of right pubis, initial encounter for closed fracture; S22.41XA Multiple fractures of ribs, right side, initial encounter for closed fracture; D62 Acute posthemorrhagic anemia; J90 Pleural effusion, not elsewhere classified; K56.7 Ileus, unspecified; K92.2 Gastrointestinal hemorrhage, unspecified; M62.82 Rhabdomyolysis; N17.9 Acute kidney failure, unspecified; N39.0 Urinary tract infection, site not specified; I95.2 Hypotension due to drugs; E86.0 Dehydration; I48.0 Paroxysmal atrial fibrillation; N28.1 Cyst of kidney, acquired; R13.14 Dysphagia, pharyngoesophageal phase; E83.42 Hypomagnesemia; I44.1 Atrioventricular block, second degree; J43.2 Centrilobular emphysema; N18.3 Chronic kidney disease, stage 3 (moderate); D63.8 Anemia in other chronic diseases classified elsewhere; I45.10 Unspecified right bundle-branch block; E78.00 Pure hypercholesterolemia, unspecified; E78.5 Hyperlipidemia, unspecified; E87.6 Hypokalemia; F32.9 Major depressive disorder, single episode, unspecified; G89.29 Other chronic pain; I12.9 Hypertensive chronic kidney disease with stage 1 through stage 4 chronic kidney disease, or unspecified chronic kidney disease; I25.10 Atherosclerotic heart disease of native coronary artery without angina pectoris; I71.4 Abdominal aortic aneurysm, without rupture; K21.0 Gastro-esophageal reflux disease with esophagitis; K29.70 Gastritis, unspecified, without bleeding; K31.7 Polyp of stomach and duodenum; M19.90 Unspecified osteoarthritis, unspecified site; M43.16 Spondylolisthesis, lumbar region; M10.9 Gout, unspecified; N42.9 Disorder of prostate, unspecified; R29.6 Repeated falls; M54.5 Low back pain; R59.1 Generalized enlarged lymph nodes; R91.8 Other nonspecific abnormal finding of lung field; R77.9 Abnormality of plasma protein, unspecified; R32 Unspecified urinary incontinence; T40.605A Adverse effect of unspecified narcotics, initial encounter; T50.995A Adverse effect of other drugs, medicaments and biological substances, initial encounter; Z77.090 Contact with and (suspected) exposure to asbestos; Z79.891 Long term (current) use of opiate analgesic; Z79.899 Other long term (current) drug therapy; Z91.013 Allergy to seafood; Z87.891 Personal history of nicotine dependence; Z66 Do not resuscitate; Z98.42 Cataract extraction status, left eye; Z98.41 Cataract extraction status, right eye; Z96.1 Presence of intraocular lens; Z90.49 Acquired absence of other specified parts of digestive tract; Z80.3 Family history of malignant neoplasm of breast; Z80.42 Family history of malignant neoplasm of prostate; W10.1XXA Fall (on)(from) sidewalk curb, initial encounter; Y92.008 Other place in unspecified non-institutional (private) residence as the place of occurrence of the external cause; Y92.239 Unspecified place in hospital as the place of occurrence of the external cause
CPT/HCPCS: 36415; 43239; 51702; 70450; 71045; 71046; 71250; 72125; 73502; 74022; 74176; 74230; 76604; 80048; 80051; 80053; 80306; 80320; 81001; 82550; 82553; 82945; 83605; 83615; 83735; 84100; 84132; 84157; 84443; 84450; 84460; 84484; 85025; 85027; 85610; 85730; 86850; 86900; 86901; 87040; 87070; 87086; 87205; 87324; 88108; 88305; 88341; 88342; 89050; 93005; 93306; 94640; 94760; 96374; 96376; 99285

== ENCOUNTER 2018-08-26 08:49 | Day surgery (SDC) | payer MEDICARE ==
[2018-08-26 09:39] VITALS: RESP 16; TEMP 98
[2018-08-26 09:48] LABS: Mean Platelet Volume 6.9; Platelet Count 355 k/uL (150-450)
[2018-08-26 09:55] LABS: Prothrombin Time 10.4 sec (9.0-12.0)
--- NOTE | 2018-08-26 11:03 | XR ---
EXAMINATION TYPE: XR chest 1V portable DATE OF EXAM: 08/26/2018 Comparison: 07/16/2018 and 08/18/2018 Clinical History: 83-year-old male post right lung biopsy Findings: Right lower lung mass redemonstrated. Diffuse interstitial prominence. Some increased patchy left per ihilar and right upper lobe opacity from 07/16/2018. The right upper lobe density is relatively simila r to 08/18/2018. No appreciable pneumothorax. Impression: 1. COPD with right lower lobe mass. No appreciable pneumothorax. 2. Patchy right upper lobe opacity/infiltrate relatively similar to 08/18/2018. Left perihilar atelect asis or infiltrate appears new. Correlate to exclude CHF or pneumonia as an etiology.
--- NOTE | 2018-08-26 12:58 | XR ---
EXAMINATION TYPE: XR chest 1V portable DATE OF EXAM: 08/26/2018 COMPARISON: Prior chest x-ray same date earlier time HISTORY: Status post lung biopsy TECHNIQUE: Single frontal view of the chest is obtained. FINDINGS: No interval change IMPRESSION: No evident complication status post lung biopsy.
--- NOTE | 2018-08-26 13:38 | CT ---
EXAMINATION TYPE: CT biopsy lung RT DATE OF EXAM: 08/26/2018 HISTORY: Right lung mass COMPARISON: CT 07/06/2018 Maximal barrier technique was utilized. The skin overlying a suitable path to the right lower lobe l kellen mass was localized using CT and the overlying skin was prepped and draped. Lidocaine used for lo richard anesthesia. A skin felipa made with a scalpel. Using CT guidance, access was gained to the lesion with a 18-gauge needle. For specimen submitted to cytology. 1 pass were performed in all. Followin g the procedure no immediate complications. The patient is discharged in stable condition. Hemosta sis achieved. IMPRESSION: SUCCESSFUL CT GUIDED CORE BIOPSY of right lower lobe lung mass. PATHOLOGY PENDING. THIS PROCEDURE W PERFORMED BY THE UNDERSIGNED.
[2018-08-26 15:30] VITALS: BP 110/72; PULSE 52
== END 2018-08-26 13:10 ==
LOC: RADPROMAIN 08:49
PROVIDERS: ATTEND Internal Medicine Critical Care Medicine
DX: C34.91 Malignant neoplasm of unspecified part of right bronchus or lung (principal); J44.9 Chronic obstructive pulmonary disease, unspecified; Z79.02 Long term (current) use of antithrombotics/antiplatelets; Z79.891 Long term (current) use of opiate analgesic; Z79.899 Other long term (current) drug therapy; Z88.0 Allergy status to penicillin; Z91.013 Allergy to seafood
CPT/HCPCS: 36415; 71045; 77012; 85049; 85610; 88305; 88342

== ENCOUNTER → 2018-09-11 | Outpatient (CLI) | payer MEDICARE ==
--- NOTE | 2018-09-15 12:09 | PE ---
Nuclear medicine PET/CT HISTORY: Lung mass, initial, squamous cell carcinoma Patient received 15.7 mCi F-18 FDG intravenously in delayed scanning was performed from the skull bas e to the mid thighs. Localization and attenuation correction CT scan was performed. Correlation to prior chest CT 07/06/2018 Neck and chest: There is been interval development of bilateral pleural effusions right greater than left. Right lower lobe lung mass is again seen and shows associated hypermetabolic uptake. SUV is 9.9 . There is a soft tissue mass present at the upper aspect of the posterior chest the level of the tho racic inlet measuring approximately 4.7 x 2.5 cm and shows associated hypermetabolic uptake, SUV is 7 .9. Small subcutaneous nodule is present just at the level of the posterior left neck subcentimeter i n size and shows mild uptake. There is a soft tissue nodule posterior to the left scapula which also shows hypermetabolic uptake measuring 2 cm, SUV 5.4. No cervical adenopathy. Subcarinal adenopathy i s present, SUV is 6.3. Mild uptake at the pleural-based irregular density left upper lobe is noted, S UV only 2.6 and may be postinflammatory. ABDOMEN: No evident adrenal mass. No liver mass or retroperitoneal adenopathy. No suspicious hypermet abolic uptake. The focus associated with the lower pole left kidney. Osseous structures: Pubic ramus fractures are again on the right present with mild increased uptake. Spondylolysis and spondylolisthesis L5-S1 again noted. IMPRESSION: Metastatic disease.
== END | disposition home or self-care (01) ==
LOC: RADPETMAIN 11:19
PROVIDERS: ATTEND Internal Medicine Critical Care Medicine
DX: R91.8 Other nonspecific abnormal finding of lung field (principal); C79.9 Secondary malignant neoplasm of unspecified site
CPT/HCPCS: 78815; A9552